=== PATIENT | female | born 1935 | race African-American/Black ===

== ENCOUNTER → 2019-01-12 | Outpatient (REF) | payer MEDICARE, MEDICAID ==
[~2019-01-12] MED LIST: AMLODIPINE PO; AMOXICILLIN250 M1 OR; AMOXICILLIN500 MG PO; ASPIRIN LOW DOS81 M2 PO; ASTEPRO137 MC1; BONIVA150 MG OR; CHERATUSSIN OR; CIPRO500 MG PO; CIPROFLOXACN500 MG PO; DEPO-MEDROL80 MG/ML IM; DIOVAN160 MG OR; DIOVAN160 MG PO; ENDOCET1 TA1 PO; FEXOFENADINE H180 MG OR; FEXOFENADINE180 MG PO; FLEXERIL5 M1 PO; FLORASTOR250 M1 PO; FLUZONE SPLT1 M1 IM; FOLIC ACID1 MG PO; HYDROCHLOROT25 MG PO; IMITREX100 MG PO; IRON CHEWS OR; ISOSORB MONO30 MG PO; LEVOTHYROXIN50 MCG PO; LISINOPRIL40 MG PO; LOPID600 MG PO; LOSARTAN POTAS100 MG PO; LYRICA25 MG PO; METAMUCIL28 % PO; OMEPRAZOLE20 M1 PO; OMEPRAZOLE20 MG PO; OMEPRAZOLE40 MG PO; PT DOES NOT KNOW; ROBITUSSIN AC10 ML PO; ROXICET1 TAB OR; TENORMIN50 MG PO; TRAVATAN Z0.004 % OP; TRAVATAN0.0041 OP; TRAVATAN0.0041 OU; TRICOR145 MG PO; VALS PO; ZPAK PO
[2019-01-12 13:27] LABS: HEMATOCRIT 28.7 % (37.0-47.0); HEMOGLOBIN 8.5 g/dl (12.0-16.0)
== END | disposition home or self-care (01) ==
LOC: LAB 12:58
PROVIDERS: ATTEND Internal Medicine
DX: D50.9 Iron deficiency anemia, unspecified (principal); N18.2 Chronic kidney disease, stage 2 (mild); D46.9 Myelodysplastic syndrome, unspecified

== ENCOUNTER → 2019-01-26 | Outpatient (REF) | payer MEDICARE, MEDICAID ==
[2019-01-26 13:20] VITALS: BP 131/78
== END | disposition home or self-care (01) ==
LOC: INF 12:28
PROVIDERS: ATTEND Internal Medicine
DX: D50.9 Iron deficiency anemia, unspecified (principal); D46.9 Myelodysplastic syndrome, unspecified; N18.2 Chronic kidney disease, stage 2 (mild)
CPT/HCPCS: J0885

== ENCOUNTER → 2019-02-12 | Outpatient (REF) | payer MEDICARE, MEDICAID ==
[2019-02-12 11:23] LABS: HEMATOCRIT 28.1 % (37.0-47.0); HEMOGLOBIN 8.3 g/dl (12.0-16.0)
== END | disposition home or self-care (01) ==
LOC: LAB 10:34
PROVIDERS: ATTEND Internal Medicine
DX: D50.9 Iron deficiency anemia, unspecified (principal); N18.2 Chronic kidney disease, stage 2 (mild); D46.9 Myelodysplastic syndrome, unspecified

== ENCOUNTER 2019-06-01 12:04 | Emergency (ER) | payer MEDICARE, MEDICAID ==
[2019-06-01] VITALS (7 sets, daily range): BP systolic 123–140; BP diastolic 59–69
[~2019-06-01] VITALS: Ht 154.9 cm; Wt 54.0 kg
[2019-06-01 12:59] LABS: IMMATURE GRANULOCYTES 4.3 % (0.0-5.0); MEAN CELL VOLUME 94.9 fL CALC (80.0-100.0); MEAN CORPUSCULAR HGB 27.3 pG CALC (26.0-32.0); MEAN CORPUSCULAR HGB CONC 28.7 g/L CALC (32.0-36.0); NEUT# 7.94 thou/uL (2.00-7.15); RED BLOOD COUNT 1.76 mill/uL (4.20-5.60)
[2019-06-01 13:07] LABS: HEMOGLOBIN 4.8 g/dl (12.0-16.0)
[2019-06-01 13:08] LABS: HEMATOCRIT 16.7 % (37.0-47.0)
[2019-06-01 13:15] LABS: INTERNATIONAL NORMALIZED RATIO 1.1 RATIO (0.7-1.3); PROTHROMBIN TIME 11.5 SECONDS (9.0-12.5)
[2019-06-01 13:28] LABS: ALBUMIN 3.9 g/dL (3.2-5.0); BILIRUBIN, TOTAL 0.2 mg/dL (0.0-1.4); CREATININE 1.4 mg/dL (0.5-1.0); POTASSIUM 3.7 mmol/l (3.5-5.1)
[2019-06-01] MEDS ORDERED: LEVOTHYROXIN75 MC1 PO (13:49)
[2019-06-01] MEDS ORDERED: TENORMIN PO (13:50)
[2019-06-01] MEDS ORDERED: TRAVATAN0.0041 OU (13:51)
[2019-06-01] MEDS ORDERED: EXFORGE PO (13:53)
[2019-06-01] MEDS ORDERED: PROTONIX40 M2 PO (13:54)
[2019-06-01] MEDS ORDERED: ALL DAY PAIN R220 MG PO (13:54)
== END 2019-06-01 16:26 | disposition short-term general hospital (02) ==
LOC: ED 12:04
PROVIDERS: Emergency Medicine
PROC: 30233N1 Transfusion of Nonautologous Red Blood Cells into Peripheral Vein, Percutaneous Approach (ICD-10-PCS; principal; 2019-06-01)
PROC: 30233N1 Transfusion of Nonautologous Red Blood Cells into Peripheral Vein, Percutaneous Approach (ICD-10-PCS; 2019-06-01)
DX: K92.2 Gastrointestinal hemorrhage, unspecified (principal); D50.0 Iron deficiency anemia secondary to blood loss (chronic); D46.9 Myelodysplastic syndrome, unspecified; I10 Essential (primary) hypertension; E03.9 Hypothyroidism, unspecified
CPT/HCPCS: P9016; S0164

== ENCOUNTER 2019-06-18 11:22 | Emergency (ER) | payer MEDICARE, MEDICAID ==
[~2019-06-18] VITALS: Ht 154.9 cm; Wt 55.9 kg
[~2019-06-18 11:22] MED LIST changes: +ALL DAY PAIN R220 MG PO; +EXFORGE PO; +LEVOTHYROXIN75 MC1 PO; +PROTONIX40 M2 PO; +TENORMIN PO
[2019-06-18 12:22] LABS: MEAN CELL VOLUME 91.9 fL CALC (80.0-100.0); MEAN CORPUSCULAR HGB 28.5 pG CALC (26.0-32.0); NEUT# 4.22 thou/uL (2.00-7.15); RED BLOOD COUNT 2.84 mill/uL (4.20-5.60); RED CELL DISTRI WIDTH 16.9 % (11.5-15.5)
[2019-06-18 12:24] LABS: HEMATOCRIT 26.1 % (37.0-47.0); HEMOGLOBIN 8.1 g/dl (12.0-16.0)
[2019-06-18 12:59] LABS: ALBUMIN 3.9 g/dL (3.2-5.0); ALKALINE PHOSPHATASE 70 u/l (38-126); ANION GAP 16 (6-22 (CALC)); BILIRUBIN, TOTAL 0.3 mg/dL (0.0-1.4); BUN 10 mg/dL (8-23); BUN/CREATININE RATIO 9 (12-20 (CALC)); C-REACTIVE PROTEIN 1.3 mg/dL (0-0.9); CARBON DIOXIDE 23 mmol/l (22-30); CHLORIDE 105 mmol/l (95-108); GFR 53 ML/MIN (>=60 (CALC)); GFR FOR AFR.AMER. > 60 ML/MIN (>=60 (CALC)); SGOT/AST 20 u/l (9-36); SODIUM 140 mmol/l (137-146); TOTAL PROTEIN 7.2 g/dL (6.3-8.2)
[2019-06-18 13:27] LABS: TSH, 3RD GENERATION 2.42 uIU/mL (0.47 - 4.68)
[2019-06-18] MEDS ORDERED: PERCOGESI1 PO (14:12)
[2019-06-18 14:25] VITALS: BP 141/63
== END 2019-06-18 14:29 | disposition home or self-care (01) ==
LOC: ED 11:22
PROVIDERS: Emergency Medicine
DX: R51 Headache (principal); I10 Essential (primary) hypertension; E03.9 Hypothyroidism, unspecified

== ENCOUNTER 2019-06-24 23:25 | Emergency (ER) | payer MEDICARE, MEDICAID ==
[~2019-06-24] VITALS: Ht 154.9 cm; Wt 54.5 kg
[~2019-06-24 23:25] MED LIST changes: +PERCOGESI1 PO
[2019-06-24 23:53] LABS: HEMATOCRIT 25.6 % (37.0-47.0); HEMOGLOBIN 8.1 g/dl (12.0-16.0); IMMATURE GRANULOCYTES 0.7 % (0.0-5.0); MEAN CELL VOLUME 89.8 fL CALC (80.0-100.0); MEAN CORPUSCULAR HGB 28.4 pG CALC (26.0-32.0); MEAN CORPUSCULAR HGB CONC 31.6 g/L CALC (32.0-36.0); NEUT# 3.18 thou/uL (2.00-7.15); RED BLOOD COUNT 2.85 mill/uL (4.20-5.60); RED CELL DISTRI WIDTH 16.3 % (11.5-15.5)
[2019-06-25 00:20] LABS: ALBUMIN 3.9 g/dL (3.2-5.0); ALKALINE PHOSPHATASE 72 u/l (38-126); BILIRUBIN, TOTAL 0.3 mg/dL (0.0-1.4); BUN 13 mg/dL (8-23); BUN/CREATININE RATIO 13 (12-20 (CALC)); CARBON DIOXIDE 24 mmol/l (22-30); GFR 53 ML/MIN (>=60 (CALC)); GFR FOR AFR.AMER. > 60 ML/MIN (>=60 (CALC)); SGOT/AST 23 u/l (9-36); TOTAL PROTEIN 7.4 g/dL (6.3-8.2)
[2019-06-25 00:21] LABS: ANION GAP 18 (6-22 (CALC)); CHLORIDE 91 mmol/l (95-108); SODIUM 130 mmol/l (137-146)
[2019-06-25 01:43] VITALS: BP 154/67
== END 2019-06-25 01:43 | disposition home or self-care (01) ==
LOC: ED 23:25
PROVIDERS: Emergency Medicine
DX: R51 Headache (principal); D64.9 Anemia, unspecified; I10 Essential (primary) hypertension; E03.9 Hypothyroidism, unspecified

== ENCOUNTER 2019-07-16 08:21 | Emergency (ER) | payer MEDICARE, MEDICAID ==
[~2019-07-16] VITALS: Ht 154.9 cm; Wt 50.0 kg
[2019-07-16 09:17] LABS: HEMATOCRIT 26.5 % (37.0-47.0); HEMOGLOBIN 8.2 g/dl (12.0-16.0); IMMATURE GRANULOCYTES 1.1 % (0.0-5.0); MEAN CELL VOLUME 89.8 fL CALC (80.0-100.0); MEAN CORPUSCULAR HGB 27.8 pG CALC (26.0-32.0); MEAN CORPUSCULAR HGB CONC 30.9 g/L CALC (32.0-36.0); NEUT# 4.42 thou/uL (2.00-7.15); RED BLOOD COUNT 2.95 mill/uL (4.20-5.60); RED CELL DISTRI WIDTH 16.9 % (11.5-15.5)
[2019-07-16] MEDS ORDERED: ATENOLOL25 MG PO (09:37)
[2019-07-16] MEDS ORDERED: DOCU SOFT100 MG PO (09:38)
[2019-07-16] MEDS ORDERED: FERR SULFATE325 MG PO (09:38)
[2019-07-16] MEDS ORDERED: DIOVAN160 MG PO (09:47)
[2019-07-16 10:02] LABS: ALKALINE PHOSPHATASE 66 u/l (38-126); BILIRUBIN, TOTAL 0.4 mg/dL (0.0-1.4); BUN 13 mg/dL (8-23); BUN/CREATININE RATIO 15 (12-20 (CALC)); CARBON DIOXIDE 24 mmol/l (22-30); CHLORIDE 101 mmol/l (95-108); CREATININE 0.9 mg/dL (0.5-1.0); GFR 59 ML/MIN (>=60 (CALC)); GFR FOR AFR.AMER. > 60 ML/MIN (>=60 (CALC)); SGOT/AST 18 u/l (9-36); TOTAL PROTEIN 7.6 g/dL (6.3-8.2)
[2019-07-16 10:03] LABS: ANION GAP 16 (6-22 (CALC)); POTASSIUM 3.9 mmol/l (3.5-5.1); SODIUM 137 mmol/l (137-146)
[2019-07-16] MEDS ORDERED: ULTRAM50 M1 PO (10:03)
[2019-07-16 10:48] VITALS: BP 165/73
== END 2019-07-16 11:24 | disposition home or self-care (01) ==
LOC: ED 08:21
PROVIDERS: Emergency Medicine
DX: R51 Headache (principal); M25.562 Pain in left knee; M25.561 Pain in right knee; G89.29 Other chronic pain; I10 Essential (primary) hypertension; E03.9 Hypothyroidism, unspecified; D46.9 Myelodysplastic syndrome, unspecified

== ENCOUNTER 2019-07-17 23:14 | Emergency (ER) | payer MEDICARE, MEDICAID ==
[~2019-07-17] VITALS: Ht 154.9 cm; Wt 21.8 kg
[~2019-07-17 23:14] MED LIST changes: +ATENOLOL25 MG PO; +DOCU SOFT100 MG PO; +FERR SULFATE325 MG PO; +ULTRAM50 M1 PO
[2019-07-18 00:14] LABS: HEMOGLOBIN 7.6 g/dl (12.0-16.0); IMMATURE GRANULOCYTES 0.9 % (0.0-5.0); MEAN CELL VOLUME 87.6 fL CALC (80.0-100.0); MEAN CORPUSCULAR HGB 27.7 pG CALC (26.0-32.0); MEAN CORPUSCULAR HGB CONC 31.7 g/L CALC (32.0-36.0); NEUT# 5.62 thou/uL (2.00-7.15); RED BLOOD COUNT 2.74 mill/uL (4.20-5.60); RED CELL DISTRI WIDTH 17.1 % (11.5-15.5)
[2019-07-18 00:39] LABS: BILIRUBIN, TOTAL 0.3 mg/dL (0.0-1.4); CREATININE 1.2 mg/dL (0.5-1.0); POTASSIUM 3.5 mmol/l (3.5-5.1); TOTAL PROTEIN 7.8 g/dL (6.3-8.2)
[2019-07-18] MEDS ORDERED: CEPHALEXIN500 M1 PO (02:24)
[2019-07-18 03:36] VITALS: BP 178/71
== END 2019-07-18 03:36 | disposition home or self-care (01) ==
LOC: ED 23:14
PROVIDERS: Emergency Medicine
DX: J06.9 Acute upper respiratory infection, unspecified (principal); F41.9 Anxiety disorder, unspecified; I10 Essential (primary) hypertension; E03.9 Hypothyroidism, unspecified; D46.9 Myelodysplastic syndrome, unspecified; R06.02 Shortness of breath; R22.0 Localized swelling, mass and lump, head

== ENCOUNTER 2019-07-29 10:56 | Emergency (ER) | payer MEDICARE, MEDICAID ==
[~2019-07-29] VITALS: Ht 154.9 cm; Wt 60.0 kg
[~2019-07-29 10:56] MED LIST changes: +CEPHALEXIN500 M1 PO
[2019-07-29 13:25] VITALS: BP 145/81
[2019-07-30] MEDS ORDERED: CARBAMAZEPIN200 M1 PO (11:38)
[2019-07-30] MEDS ORDERED: TRAMADOL HCL50 MG PO (11:38)
[2019-07-30] MEDS ORDERED: AMLODIPINE BESY10 MG PO (11:40)
[2019-07-30] MEDS ORDERED: ATENOLOL50 MG PO (11:41)
[2019-07-30] MEDS ORDERED: LOPID600 MG PO (11:41)
[2019-07-30] MEDS ORDERED: DIOVAN HCT160 MG/25 PO (11:42)
[2019-07-30] MEDS ORDERED: FIORICET PO (11:54)
== END 2019-07-29 13:25 | disposition home or self-care (01) ==
LOC: ED 10:56
DX: R51 Headache (principal); I10 Essential (primary) hypertension; E03.9 Hypothyroidism, unspecified; D46.9 Myelodysplastic syndrome, unspecified

== ENCOUNTER 2019-07-30 10:43 | Emergency (ER) | payer MEDICARE, MEDICAID ==
[~2019-07-30] VITALS: Ht 154.9 cm; Wt 65.0 kg
[2019-07-30] MEDS ORDERED: TRAMADOL HCL50 MG PO (11:38)
[2019-07-30] MEDS ORDERED: CARBAMAZEPIN200 M1 PO (11:38)
[2019-07-30] MEDS ORDERED: AMLODIPINE BESY10 MG PO (11:40)
[2019-07-30] MEDS ORDERED: LOPID600 MG PO (11:41)
[2019-07-30] MEDS ORDERED: ATENOLOL50 MG PO (11:41)
[2019-07-30] MEDS ORDERED: DIOVAN HCT160 MG/25 PO (11:42)
[2019-07-30] MEDS ORDERED: FIORICET PO (11:54)
[2019-07-30 11:59] VITALS: BP 124/73
[2019-07-31] MEDS ORDERED: AUGMENTIN500TAB PO (05:35)
[2019-07-31] MEDS ORDERED: ZOFRAN4 MG/TAB PO (05:35)
== END 2019-07-30 11:59 | disposition home or self-care (01) ==
LOC: ED 10:43
DX: G89.29 Other chronic pain (principal); R51 Headache

== ENCOUNTER 2019-07-31 04:55 | Emergency (ER) | payer MEDICARE, MEDICAID ==
[~2019-07-31] VITALS: Ht 154.9 cm; Wt 55.0 kg
[~2019-07-31 04:55] MED LIST changes: +AMLODIPINE BESY10 MG PO; +ATENOLOL50 MG PO; +CARBAMAZEPIN200 M1 PO; +DIOVAN HCT160 MG/25 PO; +FIORICET PO; +TRAMADOL HCL50 MG PO
[2019-07-31] MEDS ORDERED: ZOFRAN4 MG/TAB PO (05:35)
[2019-07-31] MEDS ORDERED: AUGMENTIN500TAB PO (05:35)
[2019-07-31 06:00] VITALS: BP 148/83
== END 2019-07-31 06:15 | disposition home or self-care (01) ==
LOC: ED 04:55
DX: R51 Headache (principal); J32.9 Chronic sinusitis, unspecified; I10 Essential (primary) hypertension; D46.9 Myelodysplastic syndrome, unspecified; E03.9 Hypothyroidism, unspecified

== ENCOUNTER 2019-09-08 09:52 | Observation (INO) | payer MEDICARE, MEDICAID ==
[2019-09-08] VITALS (8 sets, daily range): BP systolic 125–153; BP diastolic 59–82
[~2019-09-08] VITALS: Ht 154.9 cm; Wt 55.2 kg
[~2019-09-08 09:52] MED LIST changes: +AUGMENTIN500TAB PO; +ZOFRAN4 MG/TAB PO
--- NOTE | 2019-09-08 09:58 | NUR ---
PT TO ROOM VIA WC IN NO DISTRESS
--- NOTE | 2019-09-08 10:30 | NUR ---
PT HERE FOR BLOOD TRANSFUSION PRESCRIBED BY . PT PRESENTS WITH WEAKNESS, AND DIZZYNESS. FALL PRECAUSIONS INTITIATED.
--- NOTE | 2019-09-08 10:40 | NUR ---
IV STARTED AND LABS DRAWN TO START BBK PROSSESS.
[2019-09-08 11:01] LABS: HEMATOCRIT 24.5 % (37.0-47.0); HEMOGLOBIN 7.6 g/dl (12.0-16.0); IMMATURE GRANULOCYTES 1.4 % (0.0-5.0); MEAN CELL VOLUME 94.2 fL CALC (80.0-100.0); MEAN CORPUSCULAR HGB 29.2 pG CALC (26.0-32.0); NEUT# 1.87 thou/uL (2.00-7.15); RED BLOOD COUNT 2.6 mill/uL (4.20-5.60); RED CELL DISTRI WIDTH 18.3 % (11.5-15.5)
--- NOTE | 2019-09-08 11:19 | NUR ---
PT RESTING ON BED WITH FAMILY AT BEDSIDE. PT ADVISED OF PLAN OF CARE AND WAIT TIME. CALL LIGHT WITHIN REACH. WILL CONTINUE TO MONITOR.
--- NOTE | 2019-09-08 11:23 | NUR ---
URINE REQUESTED, PT STATED NOT BEING ABLE TO PROVIDE. PT MADE AWARE OF REQUEST, WILL MONITOR.
--- NOTE | 2019-09-08 11:44 | NUR ---
PT AOX4 RESTING ON STRETCHER. ASKED FOR IF URINE CAN BE COLLECTED, PT SAYS SHE WILL TRY. LEONIE IS RETRIVED AND ASSISTED PT WITH AMBULATING AND COLLECTING URINE.
[2019-09-08 12:15] LABS: ALBUMIN 3.7 g/dL (3.2-5.0); ALKALINE PHOSPHATASE 68 u/l (38-126); ANION GAP 15 (6-22 (CALC)); BILIRUBIN, TOTAL 0.6 mg/dL (0.0-1.4); BUN 19 mg/dL (8-23); BUN/CREATININE RATIO 18 (12-20 (CALC)); CARBON DIOXIDE 22 mmol/l (22-30); CHLORIDE 105 mmol/l (95-108); GFR 53 ML/MIN (>=60 (CALC)); GFR FOR AFR.AMER. > 60 ML/MIN (>=60 (CALC)); SGOT/AST 51 u/l (9-36); SODIUM 138 mmol/l (137-146); TOTAL PROTEIN 7.2 g/dL (6.3-8.2)
--- NOTE | 2019-09-08 12:29 | NUR ---
PT RESTING ON STRETCHER WAITING ADMISSION
[2019-09-08 12:31] LABS: URINE BILIRUBIN - DIPSTICK NEGATIVE (NEGATIVE); URINE BLOOD DIPSTICK NEGATIVE (NEGATIVE); URINE COLOR YELLOW; URINE GLUCOSE - DIPSTICK NEGATIVE (NEGATIVE); URINE KETONE NEGATIVE (NEGATIVE); URINE LEUK ESTERASE NEGATIVE (NEGATIVE); URINE NITRITE - DIPSTICK NEGATIVE (Negative); URINE PH 5.5 (4.5-8.0); URINE PROTEIN - DIPSTICK NEGATIVE (NEG-TRACE); URINE SPECIFIC GRAVITY 1.015
--- NOTE | 2019-09-08 12:39 | NUR ---
GAVE REPORT TO MED SURG ANGELICA. PT WILL BE IN ROOM 290. TELE [id number]
--- NOTE | 2019-09-08 13:02 | NUR ---
PT TRANSPORTED BY STRETCHER TO [facility]
--- NOTE | 2019-09-08 13:09 | NUR ---
CARE ASSUMED BY
--- NOTE | 2019-09-08 14:12 | NUR ---
REPORT RECEIVED FROM VIDHYA IN ED, PT ARRIVED ON UNIT VIA STRETCHER @ 1303, AMBULATED WITH ASSISTANCE TO BED, ALERT AND ORIENED X 3, NO C/O DISCOMFORT AT THIS TIME, IV CATHETER IN PLACE TO RAC, TELE MONITOR IN PLACE ORIENTED, TO ROOM AND CALL LACEY, WILL CONTINUE TO MONITOR.
--- NOTE | 2019-09-08 19:30 | NUR ---
PATIENT RESTING IN BED AT THIS TIME-AWAKE ALERT AND ORIENTEDX3. NO COMPLAINTS AT THIS TIME. TELE MONITOR IN PLACE. SALINE LOCK TO RIGHT AC INTACTR AND APPEARS HEALTHY AT THIS TIME. SAFETY PRECAUTIONS REINFORCED. CALL LIGHT IN REACH. WILL CONT TO MONITOR.
[2019-09-09] VITALS (9 sets, daily range): BP systolic 112–159; BP diastolic 66–91
--- NOTE | 2019-09-09 00:14 | NUR ---
PATIENT CALLED FOR ASSIST TO BR TO VOID. ORTHOSTATIC VS DONE ORDERED AND CHARTED. PATIENT IS ASSIST TO THE BR-UNSTEADY ON HER FEET. VOIDED 600CC OF CAROL URINE. ASSISTED BACK TO THE BED. TELE MONITOR IN PLACE. SALINE LOCK TO RAC INTACT AND APPEARS HEALTHY AT THIS TIME. SAFETY PRECAUTIONS REINFORCED. CALL LIGHT IN REACH. WILL CONT TO MONITOR.
--- NOTE | 2019-09-09 01:41 | NUR ---
PATIENT CALLED AND C/O FEELING SOB. VS TAKEN AND RECORDED. O2 SAT IS 97%-O2 VIA NASAL CANNULA PLACED FOR COMFORT. PATIENT ASSISTED WITH REPOSITIONING AND HOB ELEVATED. STATES THAT IT FEELS SOME BETTER. TELE MONITOR IN PLACE-[id number]. CALL LIGHT IN REACH. WILL CONT TO MONITOR.
--- NOTE | 2019-09-09 04:15 | NUR ---
RESTING IN BED-APPEARS SLEEPING AT THIS TIME. RESP ARE EVEN AND UNLABORED. TELE MONITOR IN PLACE. CALL LIGHT IN REACH. WILL CONT TO MONITOR.
[2019-09-09 05:21] LABS: HEMATOCRIT 27.5 % (37.0-47.0); HEMOGLOBIN 8.7 g/dl (12.0-16.0); IMMATURE GRANULOCYTES 0.8 % (0.0-5.0); MEAN CELL VOLUME 90.2 fL CALC (80.0-100.0); MEAN CORPUSCULAR HGB 28.5 pG CALC (26.0-32.0); MEAN CORPUSCULAR HGB CONC 31.6 g/L CALC (32.0-36.0); NEUT# 2.47 thou/uL (2.00-7.15); RED BLOOD COUNT 3.05 mill/uL (4.20-5.60); RED CELL DISTRI WIDTH 18.9 % (11.5-15.5)
--- NOTE | 2019-09-09 06:06 | NUR ---
PATIENT RESTING IN BED-ORTHOSTATIC VS TAKEN AND RECORDED. PATIENT ASSISTED TO BR TO VOID. NO COMPLAINTS AT THIS TIME. CALL LIGHT IN REACH. WILL CONT TO MONITOR.
--- NOTE | 2019-09-09 08:10 | NUR ---
ASSESSMENT DONE. PT IS A&O X3. PT STATED PAIN HEAD AND KNEE MEDICATED PT WITH ULTRAM SEE EMAR. RESPS EVEN AND UNLABORED. TELE IN PLACE. PT DENIES ANY OTHER NEEDS AT THIS TIME. SAFETY PRECAUTIONS REINFORCED AND CALL LIGHT IN REACH.
--- NOTE | 2019-09-09 11:29 | NUR ---
PT IS SITTING IN CHAIR WITH NO S/S OF DISTRESS NOTED. PT DENIES NEEDS AT THIS TIME. CALL LIGHT IN REACH.
--- NOTE | 2019-09-09 15:33 | NUR ---
Discharge instructions given. Patient verbalizes understanding of same. Discharged in stable condition via Wheelchair to Home with staff. All belongings sent with pt.
[2019-09-09] MEDS ORDERED: MAG OXIDE400 MG PO (21:45)
== END 2019-09-09 15:53 | disposition home or self-care (01) ==
LOC: ED 09:52 → ED-I 11:10 → ED 11:26 → MS2 11:27
PROVIDERS: Nurse Practitioner Family; ADMIT Internal Medicine; ATTEND Internal Medicine
PROC: 30233N1 Transfusion of Nonautologous Red Blood Cells into Peripheral Vein, Percutaneous Approach (ICD-10-PCS; principal; 2019-09-08)
DX: D61.818 Other pancytopenia (principal); D46.9 Myelodysplastic syndrome, unspecified; I10 Essential (primary) hypertension; E78.5 Hyperlipidemia, unspecified; I25.10 Atherosclerotic heart disease of native coronary artery without angina pectoris; H40.9 Unspecified glaucoma; E03.9 Hypothyroidism, unspecified; R51 Headache; Z87.891 Personal history of nicotine dependence
CPT/HCPCS: P9016

== ENCOUNTER 2019-09-09 18:11 | Emergency (ER) | payer MEDICARE, MEDICAID ==
[~2019-09-09] VITALS: Ht 154.9 cm; Wt 54.5 kg
[2019-09-09 19:32] LABS: ALBUMIN 4.3 g/dL (3.2-5.0); ALKALINE PHOSPHATASE 85 u/l (38-126); BILIRUBIN, TOTAL 0.8 mg/dL (0.0-1.4); BUN 15 mg/dL (8-23); BUN/CREATININE RATIO 16 (12-20 (CALC)); CARBON DIOXIDE 20 mmol/l (22-30); CHLORIDE 97 mmol/l (95-108); GFR 53 ML/MIN (>=60 (CALC)); GFR FOR AFR.AMER. > 60 ML/MIN (>=60 (CALC)); HEMATOCRIT 28.4 % (37.0-47.0); HEMOGLOBIN 9.3 g/dl (12.0-16.0); IMMATURE GRANULOCYTES 0.7 % (0.0-5.0); MEAN CORPUSCULAR HGB 29.2 pG CALC (26.0-32.0); MEAN CORPUSCULAR HGB CONC 32.7 g/L CALC (32.0-36.0); NEUT# 4.76 thou/uL (2.00-7.15); POTASSIUM 4.2 mmol/l (3.5-5.1); RED BLOOD COUNT 3.19 mill/uL (4.20-5.60); SGOT/AST 35 u/l (9-36)
[2019-09-09 19:40] LABS: ANION GAP 17 (6-22 (CALC)); SODIUM 130 mmol/l (137-146)
[2019-09-09 19:44] LABS: MYOGLOBIN 38 ng/mL (0 - 62)
[2019-09-09 20:03] LABS: TSH, 3RD GENERATION 2.42 uIU/mL (0.47 - 4.68)
[2019-09-09 21:18] LABS: URINE BILIRUBIN - DIPSTICK NEGATIVE (NEGATIVE); URINE BLOOD DIPSTICK TRACE-INTACT (NEGATIVE); URINE COLOR YELLOW; URINE GLUCOSE - DIPSTICK NEGATIVE (NEGATIVE); URINE KETONE NEGATIVE (NEGATIVE); URINE LEUK ESTERASE NEGATIVE (NEGATIVE); URINE NITRITE - DIPSTICK NEGATIVE (Negative); URINE PROTEIN - DIPSTICK TRACE mg/dL (NEG-TRACE); URINE SPECIFIC GRAVITY 1.015
[2019-09-09] MEDS ORDERED: MAG OXIDE400 MG PO (21:45)
[2019-09-09 23:30] VITALS: BP 146/89
== END 2019-09-09 22:30 | disposition home or self-care (01) ==
LOC: ED 18:11
PROVIDERS: Family Medicine
DX: E83.42 Hypomagnesemia (principal); I10 Essential (primary) hypertension; D46.9 Myelodysplastic syndrome, unspecified

== ENCOUNTER 2019-11-25 20:28 | Observation (INO) | payer MEDICARE, MEDICAID ==
[~2019-11-25] VITALS: Ht 154.9 cm; Wt 45.4 kg
[~2019-11-25 20:28] MED LIST changes: +CLARITIN10 M1 PO; +LEVOTHYROXIN100 MC1 PO; -LEVOTHYROXIN75 MC1 PO; +MAG OXIDE400 MG PO
--- NOTE | 2019-11-25 20:49 | NUR ---
PT TO ROOM VIA WC.
[2019-11-25 21:35] LABS: IMMATURE GRANULOCYTES 0.2 % (0.0-5.0); MEAN CELL VOLUME 86.6 fL CALC (80.0-100.0); MEAN CORPUSCULAR HGB 27.2 pG CALC (26.0-32.0); MEAN CORPUSCULAR HGB CONC 31.3 g/L CALC (32.0-36.0); NEUT# 1.18 thou/uL (2.00-7.15); RED BLOOD COUNT 2.32 mill/uL (4.20-5.60); RED CELL DISTRI WIDTH 18.7 % (11.5-15.5)
[2019-11-25 21:36] LABS: URINE BILIRUBIN - DIPSTICK NEGATIVE (NEGATIVE); URINE BLOOD DIPSTICK NEGATIVE (NEGATIVE); URINE COLOR YELLOW; URINE GLUCOSE - DIPSTICK NEGATIVE (NEGATIVE); URINE KETONE NEGATIVE (NEGATIVE); URINE LEUK ESTERASE TRACE (NEGATIVE); URINE NITRITE - DIPSTICK NEGATIVE (Negative); URINE PH 5.5 (4.5-8.0); URINE PROTEIN - DIPSTICK NEGATIVE (NEG-TRACE); URINE SPECIFIC GRAVITY 1.025; URINE UROBILINOGEN - DIPSTICK 0.2 E.U./dL (0.2)
[2019-11-25 21:39] LABS: HEMATOCRIT 20.1 % (37.0-47.0); HEMOGLOBIN 6.3 g/dl (12.0-16.0)
[2019-11-25 21:49] LABS: ALBUMIN 4.3 g/dL (3.2-5.0); BILIRUBIN, TOTAL 0.3 mg/dL (0.0-1.4); CREATININE 2.7 mg/dL (0.5-1.0); POTASSIUM 5.6 mmol/l (3.5-5.1); TOTAL PROTEIN 8.8 g/dL (6.3-8.2)
[2019-11-26] VITALS (10 sets, daily range): BP systolic 94–145; BP diastolic 48–72
--- NOTE | 2019-11-26 | NUR ---
NEW ADMIT PATIENT A/O, NO C/O OF PAIN, NO S/S RESP DISTRESS, PATIENT SKIN WARM AND MOIST, WILL CONTINUE TO MONITOR PATIENT HOURLY ROUNDING
--- NOTE | 2019-11-26 01:37 | NUR ---
PATIENT A/O NO C/O PAIN, NO S/S RESP DISTRESS, PATIENT HGB 6.3 MD ORDERED TWO UNITS OF PRBC, PATIENT FIRST BLOOD TRANSFUSION START AT 0137, WILL MONITOR PATIENT AT BEDSIDE FOR ANY REACTION TO BLOOD TRANSFUSION, CALL LIGHT WITHIN REACH
--- NOTE | 2019-11-26 01:52 | NUR ---
PATIENT A/O , NO C/O PAIN, NO S/S RESP DISTRESS, PATIENT NO APPARENT REACTION TO BLOOD TRANSFUSION, WILL CONTINUE TO MONITOR PATIENT
--- NOTE | 2019-11-26 03:35 | NUR ---
PATIENT A/O, NO C/O PAIN, NO S/S RESP DISTRESS, PATIENT SKIN WARM AND MOIST PATIENT NO FEVER, CHECK PATIENT BLOOD GLUCOSE , PATIENT GLUCOSE LEVEL 52, ORAL GLUCOSE WAS GIVEN, PATIENT BLOOD GLUCOSE RECHECK BLOOD GLUCOSE 66, NOTIFIED DR. NI ABOUT PATIENT CONITION MD ORDER BOLUS OF DEXTROSE, BLOOD GLUCOSE WAS DRAWN BY LAB PATIENT BLOOD GLUCOSE 154 APROX: [id number], WILL CONTINUE TO MONITOR
--- NOTE | 2019-11-26 04:20 | NUR ---
PATIENT FIRST UNIT OF PRBC TRANFUSION COMPLETED , PATIENT NO S/S BLOOD TRANFUSION REACTION, PATIENT HAS NO C/O PAIN, NO S/S RESP DISTRESS
--- NOTE | 2019-11-26 05:10 | NUR ---
PATIENT CURRENTLY 15 MIN IN BLOOD TRANSFUSION, PATIENT NO C/O PAIN, NO S/S RESP DISTRESS
--- NOTE | 2019-11-26 07:34 | NUR ---
PATIENT A/O, NO S/S RESP DISTRESS, NO C/O PAIN, PATIENT TRANSFUSION COMPLETED NO S/S REACTION
[2019-11-26 09:24] LABS: IMMATURE GRANULOCYTES 0.5 % (0.0-5.0); MEAN CELL VOLUME 84.5 fL CALC (80.0-100.0); MEAN CORPUSCULAR HGB 27.6 pG CALC (26.0-32.0); MEAN CORPUSCULAR HGB CONC 32.7 g/L CALC (32.0-36.0); NEUT# 1.77 thou/uL (2.00-7.15); RED BLOOD COUNT 3.62 mill/uL (4.20-5.60); RED CELL DISTRI WIDTH 16.4 % (11.5-15.5)
[2019-11-26 09:35] LABS: HEMATOCRIT 30.6 % (37.0-47.0); HEMOGLOBIN 10.1 g/dl (12.0-16.0)
[2019-11-26 09:38] LABS: ALBUMIN 4.3 g/dL (3.2-5.0); BILIRUBIN, TOTAL 0.8 mg/dL (0.0-1.4); CREATININE 2.2 mg/dL (0.5-1.0); POTASSIUM 4.9 mmol/l (3.5-5.1); TOTAL PROTEIN 8.7 g/dL (6.3-8.2)
--- NOTE | 2019-11-26 11:24 | NUR ---
DR. FREDERICK AND ELIAN MEEHAN IN TO SEE PT; PLAN OF CARE DISCUSSED
--- NOTE | 2019-11-26 14:00 | NUR ---
PT MEDICATED ORDERED FOR C/O MANLEY; CALL LACEY WITHIN REACH; WILL CONTINUE TO MONITOR.
[2019-11-26] MEDS ORDERED: FUROSEMIDE20 MG PO (14:03)
[2019-11-26] MEDS ORDERED: DIOVAN HCT PO (14:06)
--- NOTE | 2019-11-26 17:00 | NUR ---
PT TALKING ON THE PHONE; MEDICATED ORDERED FOR C/O MANLEY; CALL LACEY WITHIN REACH; WILL CONTINUE TO MONITOR.
--- NOTE | 2019-11-26 20:10 | NUR ---
PATIENT A/O, NO S/S RESP DISTRESS, NO C/O PAIN, WILL CONTINUE TO MONITOR PATIENT HOURLY ROUNDING, CALL LIGHT WITH REACH
[2019-11-27] VITALS (7 sets, daily range): BP systolic 97–151; BP diastolic 54–78
--- NOTE | 2019-11-27 00:30 | NUR ---
PATIENT A/O, NO C/O OF PAIN, NO S/S RESP DISTRESS, PATIENT ON ROOM AIR, SUPERVISED PATIENT WHILE PATIENT AMBULATE TO RESTROOM WITH WALKER, PATIENT VOIDED, PATIENT RETURN TO BED PUT CALL LIGHT WITHIN REACH, WILL CONTINUE TO MONITOR PATIENT HOURLY ROUNDING
--- NOTE | 2019-11-27 04:39 | NUR ---
PATIENT RESTING NO C/O PAIN, NO S/S RESP DISTRESS, WILL CONTINUE TO MONITOR PATIENT HOURLY ROUNING, CALL LIGHT WITHIN REACH
[2019-11-27 05:32] LABS: HEMATOCRIT 28.1 % (37.0-47.0); HEMOGLOBIN 9.1 g/dl (12.0-16.0); MEAN CELL VOLUME 85.9 fL CALC (80.0-100.0); MEAN CORPUSCULAR HGB 27.8 pG CALC (26.0-32.0); MEAN CORPUSCULAR HGB CONC 32.4 g/L CALC (32.0-36.0); RED BLOOD COUNT 3.27 mill/uL (4.20-5.60); RED CELL DISTRI WIDTH 17.4 % (11.5-15.5)
[2019-11-27 05:46] LABS: ALBUMIN 3.7 g/dL (3.2-5.0); BILIRUBIN, TOTAL 0.6 mg/dL (0.0-1.4); CREATININE 1.7 mg/dL (0.5-1.0); POTASSIUM 4.9 mmol/l (3.5-5.1); TOTAL PROTEIN 7.6 g/dL (6.3-8.2)
[2019-11-27 05:48] LABS: MAGNESIUM 1.6 mg/dL (1.6-2.3)
--- NOTE | 2019-11-27 08:00 | NUR ---
PT SEEN RESTING IN THE BED WITH FAMILY AT BEDSIDE. SHE IS ALERT AND ORIENTED X 3, LUNGS CLEAR, RA. BM TODAY. NO COMPLAINT OF HEADACHE OR OTHERWISE.
--- NOTE | 2019-11-27 14:00 | NUR ---
PT REMAINS BEFORE, NO CHANGE TO REPORT. VISITORS AT BEDSIDE INTERMITTENTLY.
--- NOTE | 2019-11-27 16:00 | NUR ---
PT WITHOUT COMPLAINT SHE RESTS IN THE BED, FAMILY AT BEDSIDE.
--- NOTE | 2019-11-27 19:54 | NUR ---
ASSESSMENT COMPLETED. IV SITES PATENT X2 AND ORDERED IVF INFUSING WELL. PT. C/O MANLEY AND MEDICATED WITH ORDERED PRN ULTRAM, WILL REASSESS. RIGHT EYE APPEARS SLIGHTLY IRRITATED PT. IS GOING TO ADMINISTER HER OWN EYE GTTS AT THIS TIME ENCOURAGED TO CALL FOR ANY NEEDS. CALL LIGHT IS IN REACH. WILL CONTINUE TO MONITOR.
--- NOTE | 2019-11-27 21:30 | NUR ---
PT. RESTING IN BED WITH NO DISTRESS NOTED.DENIES NEEDS. CALL LIGHT IS IN REACH. WILL CONTINUE TO MONITOR.
--- NOTE | 2019-11-27 23:17 | NUR ---
VSS. NO DISTRESS NOTED; DENIES NEEDS/PAIN. ANNMARIE HOSE APPLIED TO BLE. VOICES NO CONCERNS. CALL LIGHT IS IN REACH.
[2019-11-28 03:25] VITALS: BP 123/61
--- NOTE | 2019-11-28 03:25 | NUR ---
PT. RESTING IN BED WITH NO DISTRESS NOTED; DENIES NEEDS/PAIN AND VOICES NO CONCERNS. VSS. ENCOURAGED TO CALL FOR ANY NEEDS. CALL LIGHT IS IN REACH.
--- NOTE | 2019-11-28 05:08 | NUR ---
PT. RESTING IN BED WITH NO DISTRESS NOTED; DENIES NEEDS AND VOICES NO CONCERNS. CALL LIGHT IS IN REACH.
[2019-11-28 05:47] LABS: HEMATOCRIT 26.1 % (37.0-47.0); HEMOGLOBIN 8.3 g/dl (12.0-16.0); IMMATURE GRANULOCYTES 0.4 % (0.0-5.0); MEAN CELL VOLUME 87.3 fL CALC (80.0-100.0); MEAN CORPUSCULAR HGB 27.8 pG CALC (26.0-32.0); MEAN CORPUSCULAR HGB CONC 31.8 g/L CALC (32.0-36.0); NEUT# 1.43 thou/uL (2.00-7.15); RED BLOOD COUNT 2.99 mill/uL (4.20-5.60); RED CELL DISTRI WIDTH 17.2 % (11.5-15.5)
[2019-11-28 06:09] LABS: ANION GAP 14 (6-22 (CALC)); BUN 27 mg/dL (8-23); BUN/CREATININE RATIO 26 (12-20 (CALC)); CARBON DIOXIDE 19 mmol/l (22-30); CHLORIDE 106 mmol/l (95-108); GFR 53 ML/MIN (>=60 (CALC)); GFR FOR AFR.AMER. > 60 ML/MIN (>=60 (CALC)); POTASSIUM 4.8 mmol/l (3.5-5.1); SODIUM 134 mmol/l (137-146)
[2019-11-28 08:00] VITALS: BP 118/65
--- NOTE | 2019-11-28 08:00 | NUR ---
PT IS AWAKE, ALERT, ORIENTED X 3. PT UPDATED ON LATEST LAB RESULTS, SEEN IMPROVED RENAL FUNCTION. FAMILY AT BEDSIDE, SUPPORTIVE.
--- NOTE | 2019-11-28 12:00 | NUR ---
PT CONTINUES WITHOUT EVIDENCE OF DISTRESS, FAMILY CONTINUES TO COME AND GO.
--- NOTE | 2019-11-28 14:55 | NUR ---
PT WITH ABDOMINAL DISCOMFORT, TELEPHONE ORDER CLERK ROOM SERVICE AWARE. PT RESTS IN THE BED WITH EYES CLOSED.
[2019-11-28 15:30] VITALS: BP 148/71
[2019-11-28 19:16] VITALS: BP 127/66
[2019-11-28 19:33] LABS: URINE BILIRUBIN - DIPSTICK NEGATIVE (NEGATIVE); URINE BLOOD DIPSTICK SMALL (NEGATIVE); URINE COLOR YELLOW; URINE GLUCOSE - DIPSTICK NEGATIVE (NEGATIVE); URINE KETONE NEGATIVE (NEGATIVE); URINE LEUK ESTERASE NEGATIVE (NEGATIVE); URINE NITRITE - DIPSTICK NEGATIVE (Negative); URINE PROTEIN - DIPSTICK NEGATIVE (NEG-TRACE); URINE SPECIFIC GRAVITY 1.015; URINE UROBILINOGEN - DIPSTICK 0.2 E.U./dL (0.2)
[2019-11-28 19:35] LABS: URINE SQUAMOUS EPITHELIAL CELL FEW EPI/hpf (0-FEW); URINE WBC 0-2 WBC/hpf (0-5)
--- NOTE | 2019-11-28 20:45 | NUR ---
pt. a/o x2. able to make needs known. no c/o pain at this time. no acute distress. medications given per md order. tolerated well. pt. awake in bed with call light within reach.
[2019-11-28 23:34] VITALS: BP 106/61
--- NOTE | 2019-11-29 02:06 | NUR ---
pt. resting in bed with eyes closed no acute distress noted. call light within reach. bed in the lowest position
[2019-11-29 04:21] VITALS: BP 123/70
[2019-11-29 05:22] LABS: HEMATOCRIT 26.8 % (37.0-47.0); HEMOGLOBIN 8.5 g/dl (12.0-16.0); IMMATURE GRANULOCYTES 0.6 % (0.0-5.0); MEAN CELL VOLUME 88.2 fL CALC (80.0-100.0); MEAN CORPUSCULAR HGB CONC 31.7 g/L CALC (32.0-36.0); NEUT# 2.41 thou/uL (2.00-7.15); RED BLOOD COUNT 3.04 mill/uL (4.20-5.60); RED CELL DISTRI WIDTH 16.8 % (11.5-15.5)
[2019-11-29 05:39] LABS: ANION GAP 14 (6-22 (CALC)); BUN 16 mg/dL (8-23); BUN/CREATININE RATIO 20 (12-20 (CALC)); CARBON DIOXIDE 21 mmol/l (22-30); CHLORIDE 101 mmol/l (95-108); CREATININE 0.8 mg/dL (0.5-1.0); GFR > 60 ML/MIN (>=60 (CALC)); GFR FOR AFR.AMER. > 60 ML/MIN (>=60 (CALC)); POTASSIUM 4.6 mmol/l (3.5-5.1); SODIUM 131 mmol/l (137-146)
--- NOTE | 2019-11-29 06:22 | NUR ---
pt resting in bed with eyes closed. no acute distress noted. call light within reach. bed in lowest position
[2019-11-29 08:00] VITALS: BP 167/55
[2019-11-29 11:00] VITALS: BP 115/66
== END 2019-11-29 15:25 ==
LOC: ED 20:28 → ED-I 21:46 → ED 22:47 → MS2 22:48
PROVIDERS: Emergency Medicine; Nurse Practitioner Family; ADMIT Internal Medicine; ATTEND Internal Medicine
PROC: 30233N1 Transfusion of Nonautologous Red Blood Cells into Peripheral Vein, Percutaneous Approach (ICD-10-PCS; principal; 2019-11-26)
PROC: 30233N1 Transfusion of Nonautologous Red Blood Cells into Peripheral Vein, Percutaneous Approach (ICD-10-PCS; 2019-11-26)
DX: C94.6 Myelodysplastic disease, not elsewhere classified (principal); E87.5 Hyperkalemia; N17.9 Acute kidney failure, unspecified; G43.909 Migraine, unspecified, not intractable, without status migrainosus; R19.5 Other fecal abnormalities; R50.9 Fever, unspecified; E86.0 Dehydration; I12.9 Hypertensive chronic kidney disease with stage 1 through stage 4 chronic kidney disease, or unspecified chronic kidney disease; N18.2 Chronic kidney disease, stage 2 (mild); E03.9 Hypothyroidism, unspecified; I25.10 Atherosclerotic heart disease of native coronary artery without angina pectoris; E78.5 Hyperlipidemia, unspecified; E87.1 Hypo-osmolality and hyponatremia; Z87.891 Personal history of nicotine dependence
CPT/HCPCS: G0378; P9016

== ENCOUNTER 2020-01-13 14:05 | Inpatient (IN) | payer MEDICARE, MEDICAID ==
[~2020-01-13] VITALS: Ht 154.9 cm; Wt 53.5 kg
[2020-01-13] VITALS (9 sets, daily range): BP systolic 124–152; BP diastolic 58–83
[~2020-01-13 14:05] MED LIST changes: +DIOVAN HCT PO; +FUROSEMIDE20 MG PO
--- NOTE | 2020-01-13 14:15 | NUR ---
PATIENT TO ROOM VIA EMS AND PHYSICIAN AT BEDSIDE FOR EVAL
[2020-01-13 14:42] LABS: IMMATURE GRANULOCYTES 1.4 % (0.0-5.0); MEAN CELL VOLUME 92.3 fL CALC (80.0-100.0); MEAN CORPUSCULAR HGB 27.6 pG CALC (26.0-32.0); MEAN CORPUSCULAR HGB CONC 29.8 g/L CALC (32.0-36.0); NEUT# 3.75 thou/uL (2.00-7.15); RED BLOOD COUNT 1.96 mill/uL (4.20-5.60); RED CELL DISTRI WIDTH 23.9 % (11.5-15.5)
[2020-01-13 14:57] LABS: HEMATOCRIT 18.1 % (37.0-47.0); HEMOGLOBIN 5.4 g/dl (12.0-16.0)
[2020-01-13 15:20] LABS: CREATININE 1.3 mg/dL (0.5-1.0)
--- NOTE | 2020-01-13 15:20 | NUR ---
PT PRESENTS WITH HEADACHE THAT HAS BEEN OCCURING SINCE PT WAS 14 YRS OLD. PT STATES HAVING THIS CONDITION THAT HAS BEEN PROGRESSIVLY WORST SINCE THE LAST FEW DAYS. PT DENIES DIZZINESS, BLURRED VISION, AND VOMITING. PLERRA. WILL CONTINUE TO MONITOR.
[2020-01-13 15:49] LABS: INTERNATIONAL NORMALIZED RATIO 1.2 RATIO (0.7-1.3)
--- NOTE | 2020-01-13 15:50 | NUR ---
AFTER REASSESSING PT, PT DAUGHTER CONFIRMED THAT PT HAS STATED BEING WEAK, DIZZY, AND NAUSEATED THE LAST WEEK. PT CONFIRMED INFORMATION. ABD HAS A FIRM TENSE PERIUMBILICAL AREA, PT HAS HAD GAS AND HAS BEEN CONSTIPATED. ALL INFORMATION PROVIDED BY DAUGHTER AND INFO CONFIRMED BY PT.
--- NOTE | 2020-01-13 16:40 | NUR ---
NEW IV HAS TO BE INITIATED SINCE L FORARM IV IS NO LONGER PATENET. NEW IV INITIATED IN RAC 20 G READY FOR BLOOD TRANSFUSION
--- NOTE | 2020-01-13 17:06 | NUR ---
STARTED BLOOD TRANSFUSION IN RAC 20 G. BLOOD FLOWING PATENTLY. PT DENIES ANY PAINS AT THIS TIME. BEFORE INFUSION PT WAS NOTIFIED TO NOTIFY IF ANY SIGNS OF REACTION TO BLOOD, PT AND DAUGHTER VERBALIZED UNDERSTANDING. STARTED 15 MIN OBSERVATION.
--- NOTE | 2020-01-13 18:06 | NUR ---
BLOOD CONTINUE TO INFUSE, IV PATENT AND PT DENIES ANY PAIN OR REACTION. VITALS ARE STABLE. CALL LIGHT WITHIN REACH.
--- NOTE | 2020-01-13 18:33 | NUR ---
GAVE REPORT TO NILE.
--- NOTE | 2020-01-13 18:36 | NUR ---
PT TRANSPORTED TO [facility] STABLE AND IN NO DISTRESS. CARE ASSUMED TO NILE
--- NOTE | 2020-01-13 18:55 | NUR ---
PT ARRIVED TO UNIT FROM ED ON STRETCHER, UNIT PRBC TRANSFUSING. ADMITTED TO ROOM 270, ORIENTED TO UNIT, ROOM, BED AND CALL LIGHT. PT IS ACCOMPANIED BY HER DAUGHTER. PT DENIES NEEDS AT THIS TIME. CALL LACEY IN REACH, AGREES TO CALL PRN.
--- NOTE | 2020-01-13 18:56 | NUR ---
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
--- NOTE | 2020-01-13 20:00 | NUR ---
ASSESMENT COMPLETE. PLAN OF CARE REVIEWED W/ PT AND PT'S DAUGHTER AND SON WHO ARE CURRENTLY PRESENT @ BEDSIDE. ALL PRESENT VERBALIZE UNDERSTANDING AND DENY QUESTIONS AT THIS TIME. CALL LACEY WITHIN REACH, AGREES TO CALL PRN.
--- NOTE | 2020-01-14 | NUR ---
S/P TRANSFUSION OF 2 UNITS PRBC W/O INCIDENT. PT TOLERATED WELL. PT APPEARS TO BE SLEEPING COMFORTABLY W/ NO APPARENT DISTRESS OR DISCOMFORT, RESP REG/UNLABORED. CALL LACEY REMAINS WITHIN REACH. DAUGHTER IS SPENDING THE NIGHT AND IS SLEEPING ON A COT AT THE BEDSIDE.
[2020-01-14 03:52] VITALS: BP 117/62
--- NOTE | 2020-01-14 04:31 | NUR ---
PT APPEARS TO BE SLEEPING COMFORTABLY, NO APPARENT DISTRESS/DISCOMFORT. RESP REG & UNLABORED. CALL LACEY REMAINS WITHIN REACH. DAUGHTER REMAINS AT BEDSIDE.
[2020-01-14 06:30] LABS: HEMATOCRIT 25.8 % (37.0-47.0); HEMOGLOBIN 8.3 g/dl (12.0-16.0)
--- NOTE | 2020-01-14 07:40 | NUR ---
SPOKE WITH DR FREDERICK RE: PT HAVING HEADACHE INQUIRED IF COULD GET ANYTHING. CONTINEU TO OSEBRVE AND MONITOR.
[2020-01-14] MEDS ORDERED: FIORICET PO (08:16)
[2020-01-14 09:30] VITALS: BP 162/89
--- NOTE | 2020-01-14 09:30 | NUR ---
ASSESSMENT IS COMPLETRED; FAMILY IN THE ROOM./ IV SITE IS FREE FROM REDNESS OR EDEMA. HR IS REG,PULSES ARE STRONG X4, ABD IS SOFT WITH ACTIVE BS.,BREATH SOUNDS ARE CLEAR,BILATERALLY. PT C/O HEADACHE. PLACED A COOL CLOTH ON HER HEAD AND NECK. CONTINUE TO OSBERVE AND MONITOR.
[2020-01-14 11:30] VITALS: BP 160/86
--- NOTE | 2020-01-14 12:15 | NUR ---
PT IS RELAXING IN BED WITH NO DISTRESS NOTED IV SITE IS FREE FROM REDNESS OR EDEMA. FAMILY IN THE ROOM. CONTINUE TO OBSERVE AND MONITR.
--- NOTE | 2020-01-14 13:05 | NUR ---
RECEIVED A CALL FROM ER RE: TELE READING AN ALARM FOR SVT. CHECKED ON PT AND FOUND OUT THAT PT WAS GOING TO THE BATHROOM.
--- NOTE | 2020-01-14 13:40 | NUR ---
SPOKE WITH ERIKA MONGE IN OR RE: COLONOSCOPY AND EGD IN THE AM. HAS BEEN ACKNOWLEDGED.
[2020-01-14 13:53] LABS: HEMATOCRIT 27.4 % (37.0-47.0); HEMOGLOBIN 8.8 g/dl (12.0-16.0)
--- NOTE | 2020-01-14 15:00 | NUR ---
PT WAS STARTED ON NULYTELY. FAMILY IN THE ROOM. CONTINEU TO OBSERVE AND MONITOR.
[2020-01-14 16:00] VITALS: BP 161/81
--- NOTE | 2020-01-14 16:15 | NUR ---
PT IS RELAXING IN BED WITH NO DISTRESS NOTED. IV SITE IS FREE FROM REDNESS OR EDEMA. PT IS DRINKING THE NULYTELY. CONTINUE TO OSBEVE AND MONITOR.
[2020-01-14 18:45] VITALS: BP 152/83
--- NOTE | 2020-01-14 19:32 | NUR ---
PT SITTING ON THE SIDE OF THE BED. A&O X3. NO DISTRESS NOTED. PT C/O OF A SMALL HEADACHE. EXPLAINED TO THE PT THAT SHE WAS TO BE NPO AFTER MIDNIGHT DUE TO PROCEDURE, PT VERBALIZED UNDERSTANDING. PROCEDURE CONSENT TO BE OPTAINED TONIGHT. DISCUSSED POC. ASSESSMENT COMPLETED. CALL LIGHT IN REACH. CONTINUE TO MONITOR.
[2020-01-14 21:27] LABS: HEMATOCRIT 27.2 % (37.0-47.0); HEMOGLOBIN 8.6 g/dl (12.0-16.0)
--- NOTE | 2020-01-14 21:44 | NUR ---
PT SLEEPING IN BED WITH DAUGHTER AT BEDSIDE. NO DISTRESS NOTED. CALL LIGHT IN REACH. CONTINUE TO MONITOR.
[2020-01-15] VITALS (10 sets, daily range): BP systolic 126–172; BP diastolic 63–101
--- NOTE | 2020-01-15 00:02 | NUR ---
PT SLEEPING IN BED WITH DAUGHTER AT BEDSIDE. NO DISTRESS NOTED. CONTINUE TO MONITOR.
--- NOTE | 2020-01-15 04:02 | NUR ---
ATTEMPTED TO OBTAIN URINE SPECIMEN. BT HAD BM WHEN ATTEMPTING TO PROVIDE SAMPLE.
--- NOTE | 2020-01-15 05:10 | NUR ---
INFORMED CONSENT FOR EGD AND COLONOSCOPY OBTAINED.
--- NOTE | 2020-01-15 05:15 | NUR ---
ATTEMPTED TO OBTAIN URINE SPECIMEN AGAIN, UNSUCCESSFULL, PT HAD SMALL BM WHEN TRYING TO PROVIDE SAMPLE.
[2020-01-15 05:38] LABS: HEMATOCRIT 25.5 % (37.0-47.0); HEMOGLOBIN 8.2 g/dl (12.0-16.0); MEAN CELL VOLUME 87.9 fL CALC (80.0-100.0); MEAN CORPUSCULAR HGB 28.3 pG CALC (26.0-32.0); MEAN CORPUSCULAR HGB CONC 32.2 g/L CALC (32.0-36.0); RED BLOOD COUNT 2.9 mill/uL (4.20-5.60); RED CELL DISTRI WIDTH 20.2 % (11.5-15.5)
[2020-01-15 06:09] LABS: ANION GAP 14 (6-22 (CALC)); BUN 15 mg/dL (8-23); BUN/CREATININE RATIO 16 (12-20 (CALC)); CARBON DIOXIDE 20 mmol/l (22-30); CHLORIDE 101 mmol/l (95-108); CREATININE 0.9 mg/dL (0.5-1.0); GFR 59 ML/MIN (>=60 (CALC)); GFR FOR AFR.AMER. > 60 ML/MIN (>=60 (CALC)); MAGNESIUM 1.5 mg/dL (1.6-2.3); POTASSIUM 4.4 mmol/l (3.5-5.1); SODIUM 131 mmol/l (137-146)
--- NOTE | 2020-01-15 07:00 | NUR ---
REPORT RECEIVED FROM MARIPOSA MARR;PT APPEARS TO BE SLEEPING IN SEMI FOWLERS POSITION WITH FAMILY AT BEDSIDE;RESPIRATIONS EVEN AND UNLABORED ON RA;NO S/S OF DISTRESS NOTED;PROTONIX DRIP INFUSING WITH EASE PER ORDER;TELE MONITORING IN PLACE;NPO DIET REINFORCED;ALL SAFETY PRECAUTIONS NOTED WITH BED IN THE LOWEST POSITION AND CALL LIGHT IN REACH;WILL CONTINUE TO MONITOR
--- NOTE | 2020-01-15 07:52 | NUR ---
PT RESTING IN SEMI FOWLERS POSITION WITH DAUGHTER AT BEDSIDE,A&O X3;VS OBTAINED AND ASSESSMENT COMPLETED;PT DENIES ANY CURRENT PAIN OR DISCOMFORTS,PAIN SCALE AND REPORTING EDUCATED;RESPIRATIONS EVEN AND UNLABORED ON RA,CLEAR LUNG SOUNDS;ABDOMEN SOFT ON PALPATION AND ACTIVE IN ALL 4 QUADRANTS,TENDERNESS NOTED;WEAK PEDAL PULSES;SKIN INTACT;TELE MONITORING IN PLACE;#20G TO RAC FLUSHED AND PATENT,SITE APPEARS HEALTHY;PT DENIES ANY ADDITIONAL NEEDS AND IS ENCOURAGED TO CALL FOR ASSISTANCE IF NEEDED;CALL LIGHT IN REACH;WILL CONTINUE TO MONITOR
--- NOTE | 2020-01-15 08:04 | NUR ---
PT TRANSPORTED TO OR IN STABLE CONDITION VIA STRETCHER ACCOMPANIED BY MARIPOSA HERNANDES
--- NOTE | 2020-01-15 12:20 | NUR ---
PT RESTING IN SEMI FOWLERS POSITION;RESPIRATIONS EVEN AND UNLABORED ON RA;PT REPORTS HEADACHE PAIN RATING 7/10 ON THE PAIN AND REQUESTS PAIN MEDICATION,PT MEDICATED WITH PRN TYLENOL 650MG PO;TELE MONITORING IN PLACE;IV SITE PATENT;PT DENIES ANY ADDITIONAL NEEDS AT THIS TIME AND IS ENCOURAGED TO CALL FOR ASSISTANCE IF NEEDED;CALL LIGHT IN REACH;WILL CONTINUE TO MONITOR
--- NOTE | 2020-01-15 15:43 | NUR ---
REMOVED IV FROM L AC, INFORMED DAUGHTER MIGUEL THAT PATIENT LINE TO RUE AC INFILTRATED WHILE IN THE OR SWELLING AND REDNESS NOTED. EDUCATED ON ICE THERAPY AND S/S OF INFENCTION AND TO FOLLOW UP WITH DOCTOR IF OBSERVED ANY CHANGES TO RUE.
--- NOTE | 2020-01-15 15:50 | NUR ---
ALL DISCHARGE INSTRUCTIONS PROVIDED AT THIS TIME TO PT AND DAUGTER;PT INSTRUCTED TO F/U WITH HEMOTOLOGIST;IV SITE WAS REMOVED WITH CATHETER INTACT;PT DENIES ANY ADDITIONAL QUESTIONS OR NEEDS;WHEELCHAIR TO BE PROVIDED FOR D/C HOME.DAUGHTER TO TRANSPORT PT HOME.
--- NOTE | 2020-01-15 15:56 | NUR ---
Discharge instructions given. Patient verbalizes understanding of same. Discharged in stable condition via Wheelchair to Home with family. All belongings sent with pt. PT TRANSPORTED TO [facility] IN STABLE CONDITION VIA WHEELCHAIR ACCOMPANIED BY VOLUNTEER.DAUGHTER TO TRANSPORT PT HOME.
== END 2020-01-15 16:00 | disposition home or self-care (01) | DRG 811 ==
LOC: ED 14:05 → ED-I 14:37 → ED 14:37 → ED-I 15:56 → ED 16:08 → MS2 16:09
PROVIDERS: Family Medicine; Nurse Practitioner Family; ADMIT Internal Medicine; ATTEND Internal Medicine
PROC: 30233N1 Transfusion of Nonautologous Red Blood Cells into Peripheral Vein, Percutaneous Approach (ICD-10-PCS; principal; 2020-01-13)
PROC: 30233N1 Transfusion of Nonautologous Red Blood Cells into Peripheral Vein, Percutaneous Approach (ICD-10-PCS; 2020-01-13)
PROC: 0DJ08ZZ Inspection of Upper Intestinal Tract, Via Natural or Artificial Opening Endoscopic (ICD-10-PCS; 2020-01-15)
PROC: 0DJD8ZZ Inspection of Lower Intestinal Tract, Via Natural or Artificial Opening Endoscopic (ICD-10-PCS; 2020-01-15)
DX: D46.9 Myelodysplastic syndrome, unspecified (principal); K29.71 Gastritis, unspecified, with bleeding; K57.31 Diverticulosis of large intestine without perforation or abscess with bleeding; I12.9 Hypertensive chronic kidney disease with stage 1 through stage 4 chronic kidney disease, or unspecified chronic kidney disease; N18.2 Chronic kidney disease, stage 2 (mild); I25.10 Atherosclerotic heart disease of native coronary artery without angina pectoris; E03.9 Hypothyroidism, unspecified; K64.8 Other hemorrhoids; E78.5 Hyperlipidemia, unspecified; G43.909 Migraine, unspecified, not intractable, without status migrainosus; K44.9 Diaphragmatic hernia without obstruction or gangrene; Z91.19 Patient's noncompliance with other medical treatment and regimen; Z90.49 Acquired absence of other specified parts of digestive tract; Z87.891 Personal history of nicotine dependence
CPT/HCPCS: G0378; J3475; P9016; S0164

== ENCOUNTER 2020-05-10 23:05 | Observation (INO) | payer MEDICARE, MEDICAID ==
[~2020-05-10] VITALS: Ht 154.9 cm; Wt 55.5 kg
--- NOTE | 2020-05-10 23:10 | NUR ---
BY WC TO ROOM
[2020-05-11] MEDS ORDERED: HYDRO PO (00:02)
[2020-05-11] MEDS ORDERED: VALSARTAN PO (00:02)
[2020-05-11] MEDS ORDERED: PROCRIT2000 UNIT/ SC (00:04)
--- NOTE | 2020-05-11 00:10 | NUR ---
NO C/O CP OR SOB OFFERED, V/S STABLE.
[2020-05-11 00:16] LABS: HEMATOCRIT 30.4 % (37.0-47.0); IMMATURE GRANULOCYTES 1.1 % (0.0-5.0); MEAN CORPUSCULAR HGB 27.8 pG CALC (26.0-32.0); MEAN CORPUSCULAR HGB CONC 29.6 g/dL CAL (32.0-36.0); NEUT# 3.17 thou/uL (2.00-7.15); RED BLOOD COUNT 3.24 mill/uL (4.20-5.60)
[2020-05-11 00:17] LABS: MEAN CELL VOLUME 93.8 fL CALC (80.0-100.0)
[2020-05-11 00:18] LABS: URINE BILIRUBIN - DIPSTICK NEGATIVE (NEGATIVE); URINE BLOOD DIPSTICK TRACE-INTACT (NEGATIVE); URINE COLOR YELLOW; URINE GLUCOSE - DIPSTICK NEGATIVE (NEGATIVE); URINE KETONE NEGATIVE (NEGATIVE); URINE LEUK ESTERASE TRACE (NEGATIVE); URINE NITRITE - DIPSTICK NEGATIVE (Negative); URINE PROTEIN - DIPSTICK 30 mg/dL (NEG-TRACE); URINE UROBILINOGEN - DIPSTICK 0.2 E.U./dL (0.2)
[2020-05-11 00:21] LABS: URINE EPITHELIAL CELLS FEW EPI/hpf (0-FEW)
[2020-05-11 00:22] LABS: URINE BACTERIA MODERATE hpf
[2020-05-11 00:26] LABS: ALBUMIN 4.2 g/dL (3.2-5.0); BILIRUBIN, TOTAL 0.4 mg/dL (0.0-1.4); CREATININE 1.1 mg/dL (0.5-1.0); POTASSIUM 4.2 mmol/l (3.5-5.1); TOTAL PROTEIN 7.8 g/dL (6.3-8.2)
[2020-05-11 00:33] LABS: INTERNATIONAL NORMALIZED RATIO 1.2 RATIO (0.7-1.3); PROTHROMBIN TIME 12.5 SECONDS (9.0-12.5)
--- NOTE | 2020-05-11 01:15 | NUR ---
PT GIVEN ASA PER MD ORDER.
--- NOTE | 2020-05-11 02:01 | NUR ---
RESTING QUIETLY ON STRETCHER, NO C/O AT THIS TIME
--- NOTE | 2020-05-11 02:55 | NUR ---
MD IN ROOM TO DISCUSS CLINICAL FINDINGS WITH PT. AND TO ALSO MAKE HER AWARE OF ADMISSION. VERBALIZED UNDERSTANDING.
--- NOTE | 2020-05-11 03:19 | NUR ---
IV LASIX GIVEN PER MD ORDER.
--- NOTE | 2020-05-11 03:54 | NUR ---
Admission Note Report Given to: MARY GRACE MONGE Transported by: Wheelchair X Stretcher Transported with: X Nurse Transporter X Patent IV O2 X String Studies Director Location: ICU X MS2
--- NOTE | 2020-05-11 04:00 | NUR ---
PT. VOIDED APPROX. 500 ML CLEAR CAROL URINE ON BSC CHAIR.
--- NOTE | 2020-05-11 04:05 | NUR ---
PT. TAKEN TO MT FLOOR VIA STRETCHER, NO C/O.
--- NOTE | 2020-05-11 04:12 | NUR ---
PT ARRIVED TO THE MED SURG UNIT VIA STRETCHER ACCOMPANIED BY ED NURSE. PT APPEARS TO BE STABLE AT THIS TIME. PT SELF AMBULATED W/1X STANDBY ASSIST TO BED FROM STRETCHER. AIDE IS IN W/PT OBTAINING V/S AND ORIENTING PT TO ROOM.
[2020-05-11 04:40] VITALS: BP 156/88
--- NOTE | 2020-05-11 04:48 | NUR ---
PT ASSESSMENT COMPLETED AT THIS TIME. PT DENIES N/V/PAIN AT THIS TIME. DENIES ANYTHING TO DRINK OR EAT, BUT PT PROVIDED ICEWATER AT BEDSIDE. PT REMINDED OF CALL LIGHT USAGE, LOCX3. PT VERBALIZED UNDERSTANDING.
--- NOTE | 2020-05-11 05:41 | NUR ---
PT SLEEPING, NO S/O DISTRESS NOTED. PT MEDICATED ORDERS PROVIDE.
[2020-05-11 07:19] VITALS: BP 148/78
--- NOTE | 2020-05-11 07:19 | NUR ---
PT RESTING IN BED, NO SIGNS OF DISTRESS NOTED, RESP EVEN AND UNLABORED. PT ALERT AND ORIENTED X3, DISCUSSED POC, PT DENIES CP BUT C/O HEADACHE. ASSESSMENT COMPLETED, CALL LIGHT IN REACH,CONTINUE TO MONITOR.
--- NOTE | 2020-05-11 08:33 | NUR ---
CALL MADE TO [facility]AN REGARDING CRITICAL TROPONIN, ORDERS TO GIVE 324 ASA, START LOW DOSE HEPARIN GTT, AND TRANSFER TO [facility]. CALL MADE TO [facility] INFORMATION PROVIDED TO ASHISH-NURSING TOBACCO WEIGHER. AWAITING RETURN CALL.
--- NOTE | 2020-05-11 09:05 | NUR ---
CALL MADE TO [facility] SPOKE WITH KOFI INFORMATION PROVIDED FOR TRANSFER, KOFI TO RETURN CALL WITH BED NUMBER.
--- NOTE | 2020-05-11 09:24 | NUR ---
PT RESTING IN BED SPEAKING ON THE PHONE, DISCUSSED TRANSFER WITH PT, PT VERBALIZED UNDERSTANDING. CONSENT FOR TRANSFER SIGNED, PT MEDICATED PER JAN. SPOKE WITH DAUGHTER REGARDING TRANSFER. PT DENIES CHEST PAIN BUT C/O HEADACHE MD CALLED ABOUT FIORICET, PER MD NO FIORICET AT THIS TIME. NITRO PASTE REMOVED. CALL LIGHT IN REACH,CONTINUE TO MONITOR.
--- NOTE | 2020-05-11 10:22 | NUR ---
DISCUSSED HEPARIN GTT AND LIPITOR, PT AGREED. VOICES NO NEEDS OR COMPLAINTS AT THIS TIME. PT SPEAKING WITH DAUGHTER ON PHONE, BOLUS GIVEN AND INITIATED HEPARIN GTT, CALL LIGHT IN REACH,CONTINUE TO MONITOR.
[2020-05-11 11:27] VITALS: BP 154/79
--- NOTE | 2020-05-11 11:42 | NUR ---
RECEIVED A BED NUMBER FROM [facility]. [phone] [facility] CALLED TO ARRANGE TRANSPORT. INFORMATION GIVEN TO CHAD. STATED ETA IS 30 MINUTES.
--- NOTE | 2020-05-11 11:55 | NUR ---
PT AWARE OF ACCEPTING FACILITY AND ROOM NUMBER. DAUGHTER AT BEDSIDE. ETA 30 MIN.
--- NOTE | 2020-05-11 12:05 | NUR ---
[facility] ARRIVED, DAUGHTER AT BEDSIDE.
--- NOTE | 2020-05-11 12:15 | NUR ---
Discharge instructions given. Patient verbalizes understanding of same. Discharged in stable condition via Medical Transport to [facility] with staff. All belongings sent with pt.
--- NOTE | 2020-05-11 12:23 | NUR ---
REPORT GIVEN TO BRETT AT [facility]
== END 2020-05-11 12:14 | disposition short-term general hospital (02) ==
LOC: ED 23:05 → ED-I 23:28 → ED 05-11 03:05 → ED-I 05-11 03:06 → MS2 05-11 03:40
PROVIDERS: Emergency Medicine; ADMIT Internal Medicine; ATTEND Internal Medicine
DX: I21.4 Non-ST elevation (NSTEMI) myocardial infarction (principal); I10 Essential (primary) hypertension; I25.10 Atherosclerotic heart disease of native coronary artery without angina pectoris; C94.6 Myelodysplastic disease, not elsewhere classified; E03.9 Hypothyroidism, unspecified; E78.5 Hyperlipidemia, unspecified; Z87.891 Personal history of nicotine dependence; Z20.828 Contact with and (suspected) exposure to other viral communicable diseases
CPT/HCPCS: G0378; J1644

== ENCOUNTER 2020-06-17 13:48 | Observation (INO) | payer MEDICARE, MEDICAID ==
[2020-06-17] VITALS (9 sets, daily range): BP systolic 115–134; BP diastolic 57–77
[~2020-06-17] VITALS: Ht 152.4 cm; Wt 50.9 kg
[~2020-06-17 13:48] MED LIST changes: +HYDRO PO; +PROCRIT2000 UNIT/ SC; +VALSARTAN PO
--- NOTE | 2020-06-17 14:04 | NUR ---
PT IMMEDIATELY TO ROOM 10 VIA WC FOR TRIAGE. PT C/O LOW HGB, WEAKNESS, AND STATES " DR CANTU SENT ME OVER HERE FOR EVALUATION"
--- NOTE | 2020-06-17 14:17 | NUR ---
MEERA IRVIN AT BEDSIDE FOR RECTAL EXAM. HEMOCCULT POSITIVE. PT TOLERATED WELL.
--- NOTE | 2020-06-17 14:30 | NUR ---
PT ASSESSED. CHANGED TO GOWN. MONITORS IN PLACE. PT AO X 3. SKIN PALE WARM AND DRY. REPORTS SENT BY DOCTORS OFFICE DUE TO LOW HEMOGLOBIN
[2020-06-17 14:36] LABS: MEAN CELL VOLUME 92.1 fL CALC (80.0-100.0); MEAN CORPUSCULAR HGB 26.8 pG CALC (26.0-32.0); NEUT# 2.15 thou/uL (2.00-7.15); RED BLOOD COUNT 2.28 mill/uL (4.20-5.60); RED CELL DISTRI WIDTH 18.5 % (11.5-15.5)
[2020-06-17 14:43] LABS: HEMOGLOBIN 6.1 g/dl (12.0-16.0)
[2020-06-17 14:51] LABS: ALBUMIN 4.3 g/dL (3.2-5.0); BILIRUBIN, TOTAL 0.3 mg/dL (0.0-1.4); CREATININE 1.3 mg/dL (0.5-1.0); POTASSIUM 4.6 mmol/l (3.5-5.1); TOTAL PROTEIN 8.1 g/dL (6.3-8.2)
--- NOTE | 2020-06-17 15:44 | NUR ---
BLOOD TRANSFUSION STARTED.
--- NOTE | 2020-06-17 15:56 | NUR ---
BREATH SOUNDS EQUAL AND CLEAR BILAT. BLOOD TRANSFUSING.
--- NOTE | 2020-06-17 17:00 | NUR ---
PT RESTING ON STRETCHER AWAITING ADMISSION
--- NOTE | 2020-06-17 17:30 | NUR ---
MED SURG UNABLE TO TAKE REPORT AT THIS TIME
--- NOTE | 2020-06-17 18:01 | NUR ---
REPORT GIVEN TO COLLEEN MONGEFINANCE ANALYST
--- NOTE | 2020-06-17 18:07 | NUR ---
PT TRANSPORTED TELEMETRY IN PLACE TO [facility]
--- NOTE | 2020-06-17 18:12 | NUR ---
PT ARRIVED TO MED/SURG ROOM 271 IN STABLE CONDITION VIA STRETCHER ACCOMPANIED BY THOMAS MILTON RN AND DAUGHTER;WT AND VS OBTAINED BY RYAN MULLER;PT A&O X3, ORIENTED TO ROOM AND CALL LIGHT SYSTEM;TELE MONITORING IN PLACE;#20G TO RFA INFUSING NS @ K[facility] FOR SECOND UNIT OF PRBC'S WITH EASE;PT DENIES ANY CURRENT PAIN OR DISCOMFORTS,PAIN SCALE AND REPORTING EDUCATED;RESPIRATIONS REMAIN EVEN AND UNLABORED ON RA;PT ENCOURAGED TO CALL FOR ASSISTANCE IF NEEDED;FALL PRECAUTIONS IN PLACE WITH BED IN THE LOWEST POSITION AND CALL LIGHT IN REACH;WILL CONTINUE TO MONITOR
--- NOTE | 2020-06-17 18:21 | NUR ---
CALLED IN CONSULTATION FOR PATIENT WITH DR NEAL FOR GI BLEED SPOKE WITH .HE STATED HE WOULD BE IN 06/18/20
[2020-06-17 19:25] LABS: URINE BILIRUBIN - DIPSTICK NEGATIVE (NEGATIVE); URINE BLOOD DIPSTICK NEGATIVE (NEGATIVE); URINE COLOR YELLOW; URINE GLUCOSE - DIPSTICK NEGATIVE (NEGATIVE); URINE KETONE NEGATIVE (NEGATIVE); URINE LEUK ESTERASE NEGATIVE (NEGATIVE); URINE NITRITE - DIPSTICK NEGATIVE (Negative); URINE PROTEIN - DIPSTICK NEGATIVE (NEG-TRACE); URINE UROBILINOGEN - DIPSTICK 0.2 E.U./dL (0.2)
--- NOTE | 2020-06-17 20:07 | NUR ---
PATIENT ONGOING 2ND UNIT OF PRBC, NO REACTIONS NOTED AT THIS TIME, VSS AND RECORDED.
--- NOTE | 2020-06-17 20:58 | NUR ---
ONGOING 2ND UNIT OF PRBC, NO REACTION NOTED AT THIS TIME, NO DISCOMFORTS, BREATHING EVEN AND UNLABORED CALL LIGHT AT REACH.
--- NOTE | 2020-06-17 22:21 | NUR ---
CALLED [facility] AND SPOKE TO DINORA AND CLARIFIED PROTONIX AND STATED MAYBE GIVEN IV PUSH.
--- NOTE | 2020-06-17 22:34 | NUR ---
2ND UNIT OF PRBC FINISHED, V/S TAKEN AND RECORDED, NO REACTION NOTED THROUGHOUT INFUSION, DENIES PAIN AND DISCOMFORTS.BREATHING EVEN AND UNLABORED, CALL LIGHT AT REACH.
[2020-06-18] VITALS (7 sets, daily range): BP systolic 112–154; BP diastolic 58–91
--- NOTE | 2020-06-18 00:26 | NUR ---
PATIENT SLEEPING WITH EYES CLOSED, BREATHING EVEN AND UNLABORED CALL LIGHT AT REACH.
--- NOTE | 2020-06-18 03:27 | NUR ---
PATIENT RESTING IN BED WITH EYES CLOSED, BREATHING EVEN AND UNLABORED CALL LIGHT AT REACH.
[2020-06-18 06:09] LABS: HEMATOCRIT 26.9 % (37.0-47.0); IMMATURE GRANULOCYTES 0.6 % (0.0-5.0); MEAN CELL VOLUME 89.1 fL CALC (80.0-100.0); MEAN CORPUSCULAR HGB 27.8 pG CALC (26.0-32.0); MEAN CORPUSCULAR HGB CONC 31.2 g/dL CAL (32.0-36.0); NEUT# 1.96 thou/uL (2.00-7.15); RED BLOOD COUNT 3.02 mill/uL (4.20-5.60); RED CELL DISTRI WIDTH 17.3 % (11.5-15.5)
[2020-06-18 06:25] LABS: CREATININE 1.1 mg/dL (0.5-1.0); POTASSIUM 4.3 mmol/l (3.5-5.1)
[2020-06-18 06:39] LABS: HEMOGLOBIN 8.4 g/dl (12.0-16.0)
--- NOTE | 2020-06-18 07:15 | NUR ---
REPORT RECEIVED FROM MARIPOSA VINCENT;PT APPEARS TO BE SLEEPING IN SEMI FOWLERS POSITION;NO S/S OF DISTRESS NOTED;RESPIRATIONS EVEN AND UNLABORED ON RA;TELE MONITORING IN PLACE;ALL SAFETY PRECAUTIONS NOTED WITH BED IN THE LOWEST POSITION AND CALL LIGHT IN REACH;WILL CONTINUE TO MONITOR
--- NOTE | 2020-06-18 08:50 | NUR ---
PT RESTING IN SEMI FOWLERS POSITION,A&O X3,VS OBTAINED AND ASSESSMENT COMPLETED;PT DENIES ANY CURRENT PAIN OR DISCOMFORTS,PAIN SCALE AND REPORTING EDUCATED;RESPIRATIONS EVEN AND UNLABORED ON RA,CLEAR LUNG SOUNDS;ABDOMEN SOFT ON PALPATION AND ACTIVE IN ALL 4 QUADRANTS;WEAK PEDAL PULSES;SKIN INTACT;TELE MONITORING IN PLACE;#20G TO RFA FLUSHED AND PATENT,SITE APPEARS HEALTHY;PT DENIES ANY ADDITIONAL NEEDS AT THIS TIME AND IS ENCOURAGED TO CALL FOR ASSISTANCE IF NEEDED;FALL PRECAUTIONS IN PLACE WITH BED IN THE LOWEST POSITION AND CALL LIGHT IN REACH;WILL CONTINUE TO MONITOR
--- NOTE | 2020-06-18 09:35 | NUR ---
CORNELIUS GLOVER NOTIFIED OF PLAN OR CASE FOR COLONOSCOPY/EGD TOMORROW PER .
--- NOTE | 2020-06-18 09:51 | NUR ---
PT screen Patient is screened for rehab intervention and it is felt she would benefit from PT referral
--- NOTE | 2020-06-18 10:05 | NUR ---
INFORMED CONSENT OBTAINED AT THIS TIME FOR COLONOSCOPY/EGD. ALL RISKS AND BENEFITS DISCUSSED WITH PT WHO VERBALIZES UNDERSTANDING.
--- NOTE | 2020-06-18 11:20 | NUR ---
PT RESTING IN SEMI FOWLERS POSITION WATCHING TV;PT DENIES ANY CURRENT PAIN OR NEEDS,PAIN SCALE AND REPORTED EDUCATED;RESPIRATIONS EVEN AND UNLABORED ON RA;IV SITE PATENT;TELE MONITORING IN PLACE;PT EDUCATED ON CLEAR LIQUID DIET AND VERBALIZES UNDERSTANDING;RESP PANEL NASAL SWAB OBTAINED AT THIS TIME PER ORDER,PT TOLERATED WELL;PT DENIES ANY NEEDS AND IS ENCOURAGED TO CALL FOR ASSISTANCE IF NEEDED;FALL PRECAUTIONS REMAIN IN PLACE WITH BED IN THE LOWEST POSITION AND CALL LIGHT IN REACH;WILL CONTINUE TO MONITOR
--- NOTE | 2020-06-18 13:08 | NUR ---
PT MEDICATED WITH PRN TYLENOL 650MG PO FOR HEADACHE PAIN RATING 9/10 ON THE PAIN SCALE;WILL CONTINUE TO MONITOR
--- NOTE | 2020-06-18 14:35 | NUR ---
PT REPORTS THAT HEADACHE PAIN HAS NOT BEEN RELEIVED SINCE PRN TYLENOL ADMINISTRATION, PT REQUESTING SOMETHING ELSE FOR PAIN AT THIS TIME;OTILIA,RAMONRP NOTIFIED OF REQUEST;AWAITING NEW ORDERS;WILL CONTINUE TO MONITOR
--- NOTE | 2020-06-18 15:30 | NUR ---
PT RESTING ON BEDSIDE COMMODE AT THIS TIME;RESPIRATIONS REMAIN EVEN AND UNLABORED ON RA;PT REPORTS HEADACHE PAIN IS STILL PRESENT , FIORICET PROVIDED PER ORDER;TELE MONITORING IN PLACE;IV SITE PATENT;CLEAR LIQUID DIET REINFORCED;PT DENIES ANY ADDITIONAL NEEDS AT THIS TIME AND IS ENCOURAGED TO CALL FOR ASSISTANCE IF NEEDED;FALL PRECAUTIONS IN PLACE WITH CALL LIGHT IN REACH;WILL CONTINUE TO MONITOR
--- NOTE | 2020-06-18 16:00 | NUR ---
PT REPORTS HEADACHE HAS SUBSIDED SINCE FIORCETT ADMINISTRATION;PT DENIES ANY ADDITIONAL NEEDS AT THIS TIME;WILL CONTINUE TO MONITOR
--- NOTE | 2020-06-18 19:12 | NUR ---
REPORT FROM COLLEEN MAURICE. PT NOTED RESTING IN BED. ALERT AND ORIENTED. PT DENIES ANY PAIN OR DISCOMFORT AT THIS TIME. PT FINISHING BOWEL PREP. DISCUSSED POC AND NPO AFTER MIDNIGHT. PT VERBALIZED UNDERSTANDING. TEXTILE MACHINE MECHANIC IN PLACE. IV SITE APPEARS HEALTHY. PT DENIES ANY CURRENT WANTS OR NEEDS. CALL LIGHT WITHIN REACH. WILL CONTINUE TO MONITOR.
--- NOTE | 2020-06-18 23:58 | NUR ---
PT RESTING IN BED WITH EYES CLOSED. NO APPARENT DISTRESS NOTED. RESPIRATIONS EVEN AND UNLABORED. PT NPO AT THIS TIME. CALL LIGHT WITHIN REACH. WILL CONTINUE TO MONITOR.
[2020-06-19] VITALS (11 sets, daily range): BP systolic 103–142; BP diastolic 29–88
--- NOTE | 2020-06-19 03:36 | NUR ---
PT RESTING IN BED WITH EYES CLOSED. NO APPARENT DISTRESS NOTED. RESPIRATIONS EVEN AND UNLABORED. CALL LIGHT WITHIN REACH. WILL CONTINUE TO MONITOR.
--- NOTE | 2020-06-19 10:19 | NUR ---
Patient alert and oriented x3 , verb understanding of procedure. c/o headache, notified doctor. Explained to patient that medication will not be given because she is NPO, and if we give her anything by mouth we would have to delay the procedure. Patient off tlhe floor via stetcher
--- NOTE | 2020-06-19 14:53 | NUR ---
Patient returned to room
--- NOTE | 2020-06-19 15:21 | NUR ---
no orders on the chart, called surgery and spoke with Jodee she stated that she will let the doctor know
--- NOTE | 2020-06-19 16:26 | NUR ---
Spoke with ALBARO Braden, informed him that we did not have orders for patient diet, he stated that he would put in orders for clear liquid.
--- NOTE | 2020-06-19 16:44 | NUR ---
SPOKE WITH DR FISHMAN, STATED TO KEEP PATIENT UNTIL MORNING
--- NOTE | 2020-06-19 18:55 | NUR ---
REPORT FROM TEJINDER MAURICE. PT NOTED RESTING IN BED. ALERT AND ORIENTED. PT DENIES ANY PAIN OR DISCOMFORT AT THIS TIME. DISCUSSED POC. PT VERBALIZED UNDERSTANDING. FRONT EDGER IN PLACE. IV SITE APPEARS HEALTHY. PT DENIES ANY CURRENT WANTS OR NEEDS. CALL LIGHT WITHIN REACH. WILL CONTINUE TO MONITOR.
--- NOTE | 2020-06-19 23:14 | NUR ---
PT RESTING IN BED WITH EYES CLOSED. NO APPARENT DISTRESS NOTED. PT WAKES EASILY. DENIES ANY PAIN OR DISCOMFORT AT THIS TIME. CALL LIGHT WITHIN REACH. WILL CONTINUE TO MONITOR.
--- NOTE | 2020-06-20 03:45 | NUR ---
PT RESTING IN BED. NO APPARENT DISTRESS NOTED. RESPIRATIONS EVEN AND UNLABORED. CALL LIGHT WITHIN REACH. WILL CONTINUE TO MONITOR.
[2020-06-20 03:50] VITALS: BP 133/90
[2020-06-20 05:05] LABS: HEMATOCRIT 24.5 % (37.0-47.0); HEMOGLOBIN 7.6 g/dl (12.0-16.0); MEAN CELL VOLUME 90.1 fL CALC (80.0-100.0); MEAN CORPUSCULAR HGB 27.9 pG CALC (26.0-32.0); RED BLOOD COUNT 2.72 mill/uL (4.20-5.60); RED CELL DISTRI WIDTH 17.2 % (11.5-15.5)
[2020-06-20 05:33] LABS: ALBUMIN 3.7 g/dL (3.2-5.0); BILIRUBIN, TOTAL 0.3 mg/dL (0.0-1.4); CREATININE 1.1 mg/dL (0.5-1.0); POTASSIUM 4.7 mmol/l (3.5-5.1); TOTAL PROTEIN 6.7 g/dL (6.3-8.2)
[2020-06-20 08:10] VITALS: BP 111/70
[2020-06-20] MEDS ORDERED: PROTONIX40 M2 PO (08:29)
[2020-06-20 09:45] VITALS: BP 108/63
[2020-06-20 10:26] VITALS: BP 97/60
[2020-06-20 11:15] VITALS: BP 116/60
[2020-06-20 13:00] VITALS: BP 120/67
--- NOTE | 2020-06-20 14:34 | NUR ---
D/C INSTRUCTIONS GIVEN TO PT. PT VERBALIZES UNDERSTANDING. IV INTACT UPON REMOVAL
--- NOTE | 2020-06-20 14:50 | NUR ---
Discharge instructions given. Patient verbalizes understanding of same. Discharged in stable condition via Wheelchair to Home with staff. All belongings sent with pt.
--- NOTE | 2020-06-20 15:09 | NUR ---
1200 ALERT AND ORIENTED. ABLE TO VERBALIZE NEEDS. USES BSD TO VOID. PT RESTING COMFORTABLY IN BED. PT C/O OF MANLEY. INFORMED FIRE TENDER. FIORCET ORDERED. 1 UNITS OF BLOOD TRANSFUSING. NO S/S OF ADVERSE REACTIONS. FAIR APETITE. SCHEDULED TO BE D/C HOME TODAY POST TRANSFUSION.
== END 2020-06-20 14:36 | disposition home or self-care (01) ==
LOC: ED 13:48 → ED-I 16:10 → ED 16:43 → ED-I 16:44 → MS2 16:44
PROVIDERS: Nurse Practitioner Family; ADMIT Internal Medicine; ATTEND Internal Medicine
PROC: 30233N1 Transfusion of Nonautologous Red Blood Cells into Peripheral Vein, Percutaneous Approach (ICD-10-PCS; principal; 2020-06-17)
PROC: 30233N1 Transfusion of Nonautologous Red Blood Cells into Peripheral Vein, Percutaneous Approach (ICD-10-PCS; 2020-06-17)
PROC: 0DB78ZX Excision of Stomach, Pylorus, Via Natural or Artificial Opening Endoscopic, Diagnostic (ICD-10-PCS; 2020-06-19)
PROC: 0DJD8ZZ Inspection of Lower Intestinal Tract, Via Natural or Artificial Opening Endoscopic (ICD-10-PCS; 2020-06-19)
PROC: 30233N1 Transfusion of Nonautologous Red Blood Cells into Peripheral Vein, Percutaneous Approach (ICD-10-PCS; 2020-06-20)
DX: K25.4 Chronic or unspecified gastric ulcer with hemorrhage (principal); K57.31 Diverticulosis of large intestine without perforation or abscess with bleeding; K44.9 Diaphragmatic hernia without obstruction or gangrene; D64.9 Anemia, unspecified; I12.9 Hypertensive chronic kidney disease with stage 1 through stage 4 chronic kidney disease, or unspecified chronic kidney disease; N18.2 Chronic kidney disease, stage 2 (mild); N17.9 Acute kidney failure, unspecified; D46.9 Myelodysplastic syndrome, unspecified; I25.10 Atherosclerotic heart disease of native coronary artery without angina pectoris; G43.909 Migraine, unspecified, not intractable, without status migrainosus; E03.9 Hypothyroidism, unspecified; E78.5 Hyperlipidemia, unspecified; Z87.891 Personal history of nicotine dependence; Z90.49 Acquired absence of other specified parts of digestive tract; Z20.828 Contact with and (suspected) exposure to other viral communicable diseases; N18.3 Chronic kidney disease, stage 3 (moderate); D63.1 Anemia in chronic kidney disease
CPT/HCPCS: G0378; P9016; S0164

== ENCOUNTER 2020-07-04 20:40 | Inpatient (IN) | payer MEDICARE, MEDICAID ==
[~2020-07-04] VITALS: Ht 154.9 cm; Wt 56.3 kg
--- NOTE | 2020-07-04 20:40 | NUR ---
BY EMS TO ROOM.
--- NOTE | 2020-07-04 21:02 | NUR ---
TO ROOM 12 VIA EMS STRETCHER, C/O HEADACHE, GENERAL WEAKNESS.
--- NOTE | 2020-07-04 21:36 | NUR ---
FAMILY MEMBER AT BEDSIDE, PT WITH HOB ELEVATED,SMILING AND TALKING. VSS.
--- NOTE | 2020-07-04 21:42 | NUR ---
REPORT TO BLADE MONGE.
[2020-07-04 21:43] LABS: HEMATOCRIT 20.6 % (37.0-47.0); IMMATURE GRANULOCYTES 0.6 % (0.0-5.0); MEAN CELL VOLUME 92.4 fL CALC (80.0-100.0); MEAN CORPUSCULAR HGB 27.8 pG CALC (26.0-32.0); MEAN CORPUSCULAR HGB CONC 30.1 g/dL CAL (32.0-36.0); NEUT# 6.07 thou/uL (2.00-7.15); RED BLOOD COUNT 2.23 mill/uL (4.20-5.60); RED CELL DISTRI WIDTH 17.3 % (11.5-15.5)
[2020-07-04 21:52] LABS: URINE BILIRUBIN - DIPSTICK NEGATIVE (NEGATIVE); URINE BLOOD DIPSTICK NEGATIVE (NEGATIVE); URINE COLOR YELLOW; URINE GLUCOSE - DIPSTICK NEGATIVE (NEGATIVE); URINE KETONE NEGATIVE (NEGATIVE); URINE LEUK ESTERASE NEGATIVE (NEGATIVE); URINE NITRITE - DIPSTICK NEGATIVE (Negative); URINE PH 5.5 (4.5-8.0); URINE PROTEIN - DIPSTICK NEGATIVE (NEG-TRACE); URINE UROBILINOGEN - DIPSTICK 0.2 E.U./dL (0.2)
[2020-07-04 22:06] LABS: HEMOGLOBIN 6.2 g/dl (12.0-16.0)
[2020-07-04 22:08] LABS: BILIRUBIN, TOTAL 0.2 mg/dL (0.0-1.4); CREATININE 1.4 mg/dL (0.5-1.0); POTASSIUM 4.4 mmol/l (3.5-5.1); TOTAL PROTEIN 7.4 g/dL (6.3-8.2)
--- NOTE | 2020-07-04 22:40 | NUR ---
RESTING QUIETLY. VSS. NAD.
--- NOTE | 2020-07-04 23:15 | NUR ---
Admission Note Report Given to: MARIPOSA SANCHEZ Transported by: Wheelchair X Stretcher Transported with: X Nurse Transporter X Patent IV O2 X Stitch Separator Location: X ICU MS2
--- NOTE | 2020-07-04 23:25 | NUR ---
pt is NOT medsurg overflow.
--- NOTE | 2020-07-04 23:25 | NUR ---
85 yr old black female admitted icu8 as medsurg overflow to icu8 per stretcher from er. transferred self to bed. bed weight obtained. no active bleeding. nurse monitoring shows sinus rhythm ivcd hr 88. #20 rac saline lock. history obtained per pt & er record. oriented to room. fall & air/contact precautions initiated.
[2020-07-04 23:30] VITALS: BP 170/79
[2020-07-04 23:45] VITALS: BP 146/62
[2020-07-04 23:50] VITALS: BP 146/62
--- NOTE | 2020-07-04 23:53 | NUR ---
#1 unit blood began.
[2020-07-05] VITALS (17 sets, daily range): BP systolic 113–160; BP diastolic 54–80
--- NOTE | 2020-07-05 01:15 | NUR ---
assisted to bsc per request. voided well then back to bed.
--- NOTE | 2020-07-05 02:25 | NUR ---
#1 UNIT BLOOD INFUSED.
--- NOTE | 2020-07-05 02:40 | NUR ---
#2 unit blood began.
--- NOTE | 2020-07-05 04:37 | NUR ---
#2 unit blood infused.
--- NOTE | 2020-07-05 05:30 | NUR ---
lab here. blood drawn.
[2020-07-05 06:12] LABS: CREATININE 1.2 mg/dL (0.5-1.0); HEMATOCRIT 26.6 % (37.0-47.0); HEMOGLOBIN 8.5 g/dl (12.0-16.0); IMMATURE GRANULOCYTES 1.3 % (0.0-5.0); MEAN CELL VOLUME 87.8 fL CALC (80.0-100.0); MEAN CORPUSCULAR HGB 28.1 pG CALC (26.0-32.0); NEUT# 4.99 thou/uL (2.00-7.15); POTASSIUM 4.6 mmol/l (3.5-5.1); RED BLOOD COUNT 3.03 mill/uL (4.20-5.60); RED CELL DISTRI WIDTH 16.7 % (11.5-15.5)
[2020-07-05 06:13] LABS: ALBUMIN 3.5 g/dL (3.2-5.0); BILIRUBIN, TOTAL 0.3 mg/dL (0.0-1.4); TOTAL PROTEIN 6.5 g/dL (6.3-8.2)
--- NOTE | 2020-07-05 06:45 | NUR ---
RECIEVED REPORT FROM KAYLENE SANCHEZ. ASSUMED PT CARE.
--- NOTE | 2020-07-05 07:45 | NUR ---
PT A&0X4, ABLE TO MAKE NEEDS KNOWN. RESPIRATIONS EVEN/UNLABORED, SA02@98%RA. LS CLEAR THROUGHOUT. ABDOMEN SOFT/NON-TENDER, BSX4 ACTIVE. PT STATES SHE IS FEELING MUCH BETTER THIS AM. CALL LIGHT IN REACH. WILL MONITOR.
--- NOTE | 2020-07-05 09:00 | NUR ---
PT ASSISTED TO BSC, VOIDED. BACK TO BED. CALL LIGHT IN REACH. WILL MONITOR.
--- NOTE | 2020-07-05 10:15 | NUR ---
PT DAUGHTER MIGUEL CALLED WITH CODE, UPDATE GIVEN.
--- NOTE | 2020-07-05 10:32 | NUR ---
DR. BAUER AT BEDSIDE FOR ASSESSMENT AND TO DISCUSS PLAN OF CARE. NEW ORDERS RECIEVED.
--- NOTE | 2020-07-05 11:56 | NUR ---
SPOKE WITH DAUGHTER MIGUEL, UPDATE GIVEN. PT DIET ADVANCED TO CLEAR LIQUID. WILL MONITOR.
--- NOTE | 2020-07-05 13:16 | NUR ---
PT ASSISTED TO BSC, VOIDED. BACK TO BED.
--- NOTE | 2020-07-05 14:11 | NUR ---
DAUGHTER ARRIVED AT BEDSIDE.
--- NOTE | 2020-07-05 15:48 | NUR ---
DAUGHTER LEFT UNIT. PT RESTING IN BED, NO DISTRESS NOTED AT THIS TIME. CALL LIGHT IN REACH. WILL MONITOR.
--- NOTE | 2020-07-05 18:00 | NUR ---
PT ASSISTED TO BSC, VOIDED AND MODERATE BLK FORM BM. PT ASSISTED BACK TO BED. CALL LIGHT IN REACH. WILL MONITOR.
--- NOTE | 2020-07-05 19:45 | NUR ---
PATIENT'S DAUGHTER CALLED TO NOTIFY SHE HAS DROPPED OFF PATIENT'S GLAUCOMA EYE DROPS AT TH ER.
--- NOTE | 2020-07-05 19:48 | NUR ---
PT COMPLAINS OF HEADACHE, REPORTS TYLENOL DOES NOT HELP HER, AND SHE DOES NT REMEMBER WHAT SHE TAKES AT HOME FOR HER HEADACHES. I HAVE SEEN ON HER MED CLAIM HISTORY SHE HAS TAKEN FIORICET, I LET DR BAUER KNOW, NEW ORDERS RECEIVED. ORDER SENT TO .
--- NOTE | 2020-07-05 20:15 | NUR ---
PT PESTICIDE USE MEDICAL COORDINATOR LIGHT; ASSISTED TO BSC; MODERATE BLACK FORMED BM, VOIDED WELL; HEADACHE MEDICATION GIVEN; SAFELY BACK IN BED; CALL LIGHT WITHIN REACH.
--- NOTE | 2020-07-05 22:09 | NUR ---
PT IS AWAKE, ALERT AND ORIENTED X4. ON RA, DOES BECOME SOB WITH EXERTION ONLY. O2 SAT IS GREATER THAN 95%. NURSING ASSESSMENT PERFORMED. PT REPORTS SHE HAS EYE DROPS FOR HR GLAUCOMA SHE TAKES AT NIGHT, I LET HER KNOW HER DAUGHTER CAN DROP THEM OFF AT THE ER. PT ALSO C/O HEADACHE, LET HER KNOW I WILL ADDRESS IT WITH THE DOCTOR. RAC IV INTACT, IV FLUIDS AND NEW PROTONIX BAG INFUSING PROPERLY. SR ON TELE. POC DISCUSSED, PT UNDERSTANDS AND AGREES. SELF REPSOITIONS. CALL LIGHT WITHIN REACH.
[2020-07-06] VITALS (17 sets, daily range): BP systolic 112–173; BP diastolic 51–90
--- NOTE | 2020-07-06 00:07 | NUR ---
PT RODDING MACHINE TENDER LIGHT, ASSISTED TO BSC. PT VOIDED ONLY. PT SOB WITH EXERTION, O2 SAT IS 100%. PT NOW BACK IN BED, SELF REPSOTIONS. CALL LIGHT WITHIN REACH.
--- NOTE | 2020-07-06 03:16 | NUR ---
PATIENT RESTS WITH EYES CLOSED. NO ACUTE DISTRESS SHOWN. CALL LIGHT WITHIN REACH.
--- NOTE | 2020-07-06 04:17 | NUR ---
PT UNION ORGANIZER LIGHT, ASSISTED TO BSC, VOIDED ONLY. NOW SAFELY BACK IN BED, IV X1 INTACT, AFEBRILE. NO OTHER COMPLAINTS OR NEEDS AT THIS TIME. CALL LIGHT WITHIN REACH.
--- NOTE | 2020-07-06 06:45 | NUR ---
RECIEVED REPORT FROM MARIPOSA PAREKH. ASSUMED PT CARE.
--- NOTE | 2020-07-06 07:15 | NUR ---
PT A&OX4, ABLE TO MAKE NEEDS KNOWN. RESPIRATIONS EVEN/UNLABORED. SA02@97%RA. LS CLEAR THROUGHOUT. SR ON TELMETRY , 79. PT DENIES CP, SOB OR DISTRESS AT THIS TIME. ABDOMEN SOFT, NON-TENDER. LBM 8-8-20. BSX4 ACTIVE. RAC WITH 20G INFUSING, NS@125ML/HR AND PROTONIX GTT. NO S/S OF INFILTRATION OR INFECTION AT SITE. CALL LIGHT IN REACH. WILL MONITOR.
--- NOTE | 2020-07-06 08:50 | NUR ---
DR. BAUER AT [facility] FOR ASSESSMENT AND TO DISCUSS PLAN OF CARE, NEW ORDERS RECIEVED.
--- NOTE | 2020-07-06 09:20 | NUR ---
PT MEDICATED FOR H/A ORDERED PER PT REQUEST. CALL LIGHT IN REACH. WILL MONITOR.
--- NOTE | 2020-07-06 10:00 | NUR ---
COMPLETE BED BATH, LINEN CHANGE DONE. PT TOLERATED WELL.
[2020-07-06 10:46] LABS: HEMATOCRIT 22.4 % (37.0-47.0); IMMATURE GRANULOCYTES 0.3 % (0.0-5.0); MEAN CELL VOLUME 91.1 fL CALC (80.0-100.0); MEAN CORPUSCULAR HGB 28.5 pG CALC (26.0-32.0); MEAN CORPUSCULAR HGB CONC 31.3 g/dL CAL (32.0-36.0); NEUT# 4.51 thou/uL (2.00-7.15); RED BLOOD COUNT 2.46 mill/uL (4.20-5.60); RED CELL DISTRI WIDTH 17.1 % (11.5-15.5)
[2020-07-06 10:50] LABS: HEMOGLOBIN 7.1 g/dl (12.0-16.0)
[2020-07-06 11:17] LABS: ANION GAP 12 (6-22 (CALC)); BUN 34 mg/dL (8-23); BUN/CREATININE RATIO 37 (12-20 (CALC)); CARBON DIOXIDE 18 mmol/l (22-30); CHLORIDE 110 mmol/l (95-108); CREATININE 0.9 mg/dL (0.5-1.0); GFR 59 ML/MIN (>=60 (CALC)); GFR FOR AFR.AMER. > 60 ML/MIN (>=60 (CALC)); POTASSIUM 4.8 mmol/l (3.5-5.1); SODIUM 135 mmol/l (137-146)
--- NOTE | 2020-07-06 11:30 | NUR ---
DIETARY ON UNIT, LUNCH TRAY SET UP.
--- NOTE | 2020-07-06 12:45 | NUR ---
PT DAUGHTER ARRIVED AT BEDSIDE. PT ASSISTED TO BSC, VOIDED. THEN BACK TO BED.
--- NOTE | 2020-07-06 14:00 | NUR ---
daughter left bedside.
--- NOTE | 2020-07-06 16:05 | NUR ---
PRBC INFUSION COMPLETED. NO DISTRESS NOTED AT THIS TIME. CALL LIGHT IN REACH.
--- NOTE | 2020-07-06 17:50 | NUR ---
PT ASSISTED TO BSC, VOIDED 550ML
--- NOTE | 2020-07-06 18:04 | NUR ---
PT LEFT VIA STRETCHER WITH [employer].
--- NOTE | 2020-07-06 18:50 | NUR ---
PT ON BSC, HAD SMALL LOOSE BM, BLACK MIXED WITH URINE. PT ABLE TO WIPE HER SELF. NOW SAFELT BACK IN BED, NURSING ASSESSMENT PERFORMED. ON RA SATS GEATER THAN 95%. DOES BECOME SINUS TACH 120'S WITH EXERTION. BP 170'S SYSTOLIC. COMPLAINS OF MANLEY 8/, WILL MEDICATE. RAC IV INTACT, IV FLUIDS AND MEDICATION INFUSING PROPERLY. SELF REPOSITIONS. CALL LIGHT WITHIN REACH.
--- NOTE | 2020-07-06 19:17 | NUR ---
APRESOLINE PRN IV GIVEN FOR BP OF 170'S SYSTOLIC. FIORICET GIVEN WELL FOR COMPLAINTS OF HEADACHE 07/07. CALL LIGHT WITHIN REACH.
--- NOTE | 2020-07-06 19:39 | NUR ---
PT EPITAXIAL REACTOR TECHNICIAN LIGHT, REPORTS SHE IS HAVING TROUBLE BREATHING. PT'S O2 SAT IS 99% ON ROOM AIR, I PLACED HER ON 2 L/NC FOR SUPPORT, O2 NOW IS 100%. HEART RATE 107 BPM. PLACED HER IN HIGH BLAKELY'S, WILL CONTINUE TO MONITOR.
--- NOTE | 2020-07-06 20:27 | NUR ---
PT RETAIL ADMINISTRATIVE ASSISTANT LIGHT, ASSISTED TO BSC, VOIDED LARGE AMOUNT, NO BM. PT REPORTS SHE STILL FEELS OUT OF BREATH, PT SAFELY BACK IN BED, HIGH BLAKELY'S POSITION. O2 SAT IS 100%. ALSO DAUGHTER CALLED HERE, SHE PROVIDED PASSCODE. SHE WANTED TO KNOW WHY HER MOTHER WAS ON OXYGEN, HER BROTHER HAD JUST SPOKEN TO PATIENT AND PATIENT NOTIFIED SON SHE WAS ON O2 THAT IS WHY DAUGHTER CALLED, I UPDATED DAUGHTER, I ASKED DAUGHTER IF PATIENT HAS HISTORY OF ANXIETY, DAUGHTER DID REPORT PATIENT DOES BUT DOES NOT TAKE ANY MEDICATION FOR IT. LET HER KNOW I WILL NOTIFY HER FOR NEW UPDATES.
--- NOTE | 2020-07-06 21:51 | NUR ---
PT SOIL BIOLOGY TEACHER LIGHT, ASKS IF I CAN PLACE HOB DOWN. EYE DROPS PROVIDED, HOB 30 DEGREES NOW. PT IS SR ON TELE, HR 70'S-80'S, 100% ON 2 L/MIN O2. BREATHING IS WNL, PT REPORTS SHE PROBABLY GOT OUT OF BREATH FROM GETTING UP TO THE BATHROOM, CLEANING HERSELF, REPOSITIONING. PT IN NO ACUTE DISTRESS NOW. CALL LIGHT WITHIN REACH.
[2020-07-07] VITALS (14 sets, daily range): BP systolic 108–151; BP diastolic 46–83
--- NOTE | 2020-07-07 01:02 | NUR ---
PT ASSISTED TO BSC. VOIDS. NOW BACK IN BED, REQUESTS TO TAKE HER O2 OFF, SHE SATS 100%. CALL LIGHT WITHIN REACH
--- NOTE | 2020-07-07 05:14 | NUR ---
PT AWAKENS EASILY WITH NOISE. NO ACUTE DISTRESS SHOWN. NO NEEDS AT THIS TIME. CALL LIGHT WITHIN REACH.
--- NOTE | 2020-07-07 05:33 | NUR ---
PT ASSISTED TO BSC, VOIDED. SAFELY BACK IN BED. CALL LIGHT WITHIN REACH.
[2020-07-07 06:39] LABS: HEMATOCRIT 23.6 % (37.0-47.0); HEMOGLOBIN 7.4 g/dl (12.0-16.0); IMMATURE GRANULOCYTES 0.9 % (0.0-5.0); MEAN CELL VOLUME 89.4 fL CALC (80.0-100.0); MEAN CORPUSCULAR HGB CONC 31.4 g/dL CAL (32.0-36.0); NEUT# 3.56 thou/uL (2.00-7.15); RED BLOOD COUNT 2.64 mill/uL (4.20-5.60); RED CELL DISTRI WIDTH 17.2 % (11.5-15.5)
[2020-07-07 06:53] LABS: ANION GAP 9 (6-22 (CALC)); BUN 29 mg/dL (8-23); BUN/CREATININE RATIO 33 (12-20 (CALC)); CARBON DIOXIDE 19 mmol/l (22-30); CHLORIDE 110 mmol/l (95-108); CREATININE 0.9 mg/dL (0.5-1.0); GFR 59 ML/MIN (>=60 (CALC)); GFR FOR AFR.AMER. > 60 ML/MIN (>=60 (CALC)); POTASSIUM 4.4 mmol/l (3.5-5.1); SODIUM 134 mmol/l (137-146)
--- NOTE | 2020-07-07 08:45 | NUR ---
ASSESSMENT COMPLETED. NO DSITRESS NOTED. MD AT BEDSIDE. IV SITE INFILTRATED AND REMOVED WITH CATHETER TIP INTACT. NEW IV STARTED TO RFA X2 ATTEMPTS. PT. ASSISTED ON AND OFF OF BSC AND BACK INTO BED. C/O MANLEY WILL MEDICATE SHORTLY.
--- NOTE | 2020-07-07 10:49 | NUR ---
UNIT OF PRBC'S STARTED;VERIFIED BY 2 NURSES PER PROTOCAL. REVIEWED S/S OF REACTIONS; VERBALIZES UNDERSTANIDNG. THIS ENGINEERING TEST MECHANIC IN AT BEDSIDE FOR INITIAL 15 MINUTES.
--- NOTE | 2020-07-07 13:15 | NUR ---
PRBC'S FINISHED AND IV SITE FLUSHED AND ORDERED NS RESTARTED.
--- NOTE | 2020-07-07 15:00 | NUR ---
RESTING IN BED WITH NO DISTRESS NOTED; DENIES NEEDS. CALL LIGHT IS IN REAH.
--- NOTE | 2020-07-07 16:55 | NUR ---
SPOKE WITH DR. BOWMAN AND NOTIFIED HIM OF CONSULT ON PT. NEW ORDERS RECEIVED FOR NPO DIET AFTER MIDNIGHT AND HE WILL SEE PT. IN AM.
--- NOTE | 2020-07-07 17:16 | NUR ---
UPDATED PT. ON DIET AFTER MIDNIGHT AND OF SURGEON TO SEE HER IN AM; VERBALIZES UNDERSTANDING. ASSISTED TO AND FROM BSC. PT. C/O MANLEY AND MEDICATED WITH ORDERED PRN FIORCET; WILL REASSESS.
--- NOTE | 2020-07-07 19:20 | NUR ---
awake. no obvious bleeding @ present. associate professor of theology shows sinus rhythm ivcd. #20 rfa ns infusing @ 100cchr. po fluids taken well. assisted to bsc. hanny well. fall & air/contact precautions cont.
--- NOTE | 2020-07-07 22:00 | NUR ---
up to bsc. hanny well. admits to stiffness d/t arthritis.
[2020-07-08] VITALS (16 sets, daily range): BP systolic 96–159; BP diastolic 44–89
--- NOTE | 2020-07-08 00:01 | NUR ---
eyes closed. no distress. classroom monitor shows sinus rhythm ivcd hr 84.
--- NOTE | 2020-07-08 02:00 | NUR ---
eyes closed. nad. no active bleeding. ivf infusing well.
--- NOTE | 2020-07-08 04:00 | NUR ---
eyes closed. no distress. monitoring tech shows sinus rhythm ivcd hr 76.
--- NOTE | 2020-07-08 05:15 | NUR ---
lab here. blood drawn.
[2020-07-08 05:47] LABS: HEMATOCRIT 24.4 % (37.0-47.0); HEMOGLOBIN 7.5 g/dl (12.0-16.0); MEAN CELL VOLUME 89.1 fL CALC (80.0-100.0); MEAN CORPUSCULAR HGB 27.4 pG CALC (26.0-32.0); MEAN CORPUSCULAR HGB CONC 30.7 g/dL CAL (32.0-36.0); RED BLOOD COUNT 2.74 mill/uL (4.20-5.60); RED CELL DISTRI WIDTH 16.2 % (11.5-15.5)
--- NOTE | 2020-07-08 05:56 | NUR ---
eyes closed. no distress. ivf infusing well.
--- NOTE | 2020-07-08 08:20 | NUR ---
ASSESSMENT COMPLETED. NO DISTRESS NOTED. C/O MANLEY; ICE PACK APPLIED PT. IS NPO AT THIS TIME. IV SITE PATENT AND ORDERED IVF INFUSING WELL. ENCOURAGED TO CALL FOR ANY NEEDS. CALL LIGHT IS IN REACH.
--- NOTE | 2020-07-08 09:00 | NUR ---
SPOKE WITH DAUGHTER ON TELEPHONE AND VOICES SHE WANTS TO BE NOTIFIED OF ANY UPDATES ON PT. WILL PLACE NAME AND PHONE NUMBER ON TOP OF CHART WITH NOTE. UPDATED ON NASAL SWAB NEEDED WELL PT. GOING OWN FOR AN EGD THIS AM.
--- NOTE | 2020-07-08 09:21 | NUR ---
UPDATED PT. ON POC AND OF EGD THIS AM WELL SWAB; PT. IN AGREEMENT.
--- NOTE | 2020-07-08 10:55 | NUR ---
PT. OFF UNIT TO OR VIA STRETCHER; CALLED AND NOTIFIED DAUGHTER WELL NEGATIVE SWAB.
--- NOTE | 2020-07-08 12:25 | NUR ---
RECEIVED PT. FROM OR. PT. STABLE. VSS. NO DISTRESS NOTED. C/O MANLEY; WILL MEDICATE SHORTLY WITH PRN FIORCET.
--- NOTE | 2020-07-08 15:40 | NUR ---
PT. ASSISTED TO BSC AND PROVIDED WITH BATH AND THEN ASSISTED UP TO CHAIR. DENIES FURTHER NEEDS. VSS. REPORTS FEELING BETTER. CALL LIGHT IS IN REACH.
--- NOTE | 2020-07-08 18:35 | NUR ---
C/O MANLEY; MEDICATED WITH ORDERED PRN FIORCET;
--- NOTE | 2020-07-08 19:30 | NUR ---
awake. nad. no active bleeding. cardiac catheterization technologist shows sinus rhythm hr 90. #20 rac ns infusing @ 100cchr. po fluids taken fair. assisted to bsc. hanny fair. fall precautions cont.
--- NOTE | 2020-07-08 22:00 | NUR ---
eyes closed. nad. monitoring tech shows sinus rhythm hr 84.
[2020-07-09] VITALS (25 sets, daily range): BP systolic 105–157; BP diastolic 57–91
--- NOTE | 2020-07-09 00:01 | NUR ---
eyes closed. no distress. color television console monitor shows sinus rhythm hr 80
--- NOTE | 2020-07-09 02:00 | NUR ---
resting quietly. resps even & unlabored. ivf infusing well.
--- NOTE | 2020-07-09 05:30 | NUR ---
lab here. blood drawn.
[2020-07-09 06:02] LABS: HEMATOCRIT 20.5 % (37.0-47.0); MEAN CELL VOLUME 89.1 fL CALC (80.0-100.0); MEAN CORPUSCULAR HGB 27.8 pG CALC (26.0-32.0); MEAN CORPUSCULAR HGB CONC 31.2 g/dL CAL (32.0-36.0); RED BLOOD COUNT 2.3 mill/uL (4.20-5.60); RED CELL DISTRI WIDTH 16.2 % (11.5-15.5)
[2020-07-09 06:26] LABS: HEMOGLOBIN 6.4 g/dl (12.0-16.0)
--- NOTE | 2020-07-09 07:30 | NUR ---
ASSESSMENT IS COMPLETED: PT IS VERY TIRED THIS AM. IV SITE IS FREE FROM REDNESS OR EDEMA. HR IS ERG,PULSES ARE STRONG X4, ABD IS SOFT WITH ACTIVE BS. BREATH SOUNDS ARE CLEAR, BILATERALLY. PT IS ON RA. CONTINUE TO OSEBRVE AND MONITOR.
--- NOTE | 2020-07-09 08:15 | NUR ---
Dr Ring in to visit with pt.
--- NOTE | 2020-07-09 11:03 | NUR ---
1ST UNIT OF BLOOD BEING TRANSFUSED PT IS TOLERATING WELL.
--- NOTE | 2020-07-09 11:40 | NUR ---
SPOKE WITH THE DAUGHTER (CAREGIVER) RE: PT/ VERY CONCERNED. STATING" MY BROTHER SPOKE TO HER AND SHE WASN'T SOUNDING RIGHT" EXPLAINED THAT PT WAS ON THE PHONE WHILE I STARTED THE BLOOD AND TOLD THEM WHAT WAS GIVEN TO HER THIS AM. REQUESTED THAT WE CALL HER IF ANY CHANGES. REASSURED HER THAT WE WOULD.
--- NOTE | 2020-07-09 12:13 | NUR ---
PT C/O HEADACHE AND DIZZINESS. GAVE PAIN MEDICATION. PT STATED" EVERYTIME MY BLOOD IS LOW , I GET THE HEADACHE AND DIZZINESS."
--- NOTE | 2020-07-09 12:30 | NUR ---
PT HAS BEEN RELAXING IN BED WITH NO DISTRESS NOTED. C/O ARTHRITIC PAIN. WELL DIZZINESS .
--- NOTE | 2020-07-09 13:02 | NUR ---
ASSISTED PT TO BSC. C/O HEADACHE AND DIZZINESS CONTIUES MEDICATION WAS GIVEN .
--- NOTE | 2020-07-09 13:50 | NUR ---
PT RECEIVING THE 2ND UNIT OF BLOOD TOLERATED WELL ON THE 1ST ONE.
--- NOTE | 2020-07-09 14:00 | NUR ---
PT ATTEMPTS TO NAP , INTERUPTED FROM VS. NO DISTRESS NOTED.
--- NOTE | 2020-07-09 18:21 | NUR ---
PT'S SON HERE TO VISIT WITH PT.
--- NOTE | 2020-07-09 19:15 | NUR ---
PT ASBESTOS SHINGLE INSPECTOR LIGHT, REQUESTS FOR HEAD TO BE REPOSITIONED. HOB ELEVATED AND PILLOW REPOSITIONED. NO ACUTE DISTRESS SHOWN. CALL LIGHT WITHIN REACH.
--- NOTE | 2020-07-09 19:49 | NUR ---
PATIENT IS AWAKE, HOB 30 DEGREES. ALERT AND ORIENTED X4, IS HARD OF HEARING. ON RA, SATS 99%, SOB WITH EXERTION NOTED. SR ON TELE, HR 80'S-90'S. BP 140'S SYSTOLIC. RAC 20 G IV INTACT, NS AT 100 ML/HR. POC DICUSSED, PATIENT UNDERSTANDS AND AGREES. SELF REPOSITIONS. DOES NOT COMPLAIN OF PAIN OR NO NEEDS AT THIS TIME. CALL LIGHT WITHIN REACH.
--- NOTE | 2020-07-09 21:45 | NUR ---
PATIENT ABLE TO SWALLOW HER BEDTIME MEDICATION. PT COMPLAINS OF LEFT ARM IN PAIN, BLOOD PRESSURE CUFF REMOVED FROM THAT ARM, ASSITED TO REPOSTION ON HER RIGHT SIDE, WILL PLACE PILLOWS ON HER BACK. NO OTHER COMPLAINTS OR NEEDS AT THIS TIME. CALL LIGHT WITHIN REACH.
--- NOTE | 2020-07-09 21:56 | NUR ---
ICE PACK PLACED AROUND ARM AREA WELL. PT HAS A BRUISED AREA, AND A BUMP AT INJECTION SITE ON LUE. ARM ELEVATED WITH PILLOW WELL.
--- NOTE | 2020-07-09 23:14 | NUR ---
PT TENTERING MACHINE FEEDER LIGHT, IV LEAKING ON RAC. NEW IV ACCESS ON RFA 22 G, IV FLUIDS RESTARTED. NO OTHER COMPLAINTS OR NEEDS AT THIS TIME.
[2020-07-10] VITALS (12 sets, daily range): BP systolic 120–162; BP diastolic 55–89
--- NOTE | 2020-07-10 01:16 | NUR ---
PATIENT COMPLAINS OF NOT BEING ABLE TO SLEEP FROM PAIN ON RUE, PILLOWS HAVE BEEN PLACED WELL ICE PROVIDED AT AREA, PT REQUESTS TO HAVE MEDICATION FOR SLEEP. CALLED AND SPOKE TO DR SALMON, NEW ORDER RECEIVED. SENT TO [facility].
--- NOTE | 2020-07-10 01:32 | NUR ---
LAURENTL X1 GIVEN, PT EDUCATED ON MED. WILL CONTINUE TO MONITOR. CALL LIGHT WITHIN REACH.
--- NOTE | 2020-07-10 03:02 | NUR ---
PT MASONRY INSTRUCTOR LIGHT, COMPLAINS OF PAIN ON LEFT ELBOW, KNEES. CALLED AND SPOKE TO DR SALMON, NEW ORDER RECEIVED. PT GIVEN PAIN MEDICATION, WILL CONTINUE TO MONITOR.
--- NOTE | 2020-07-10 03:28 | NUR ---
PT REWRITER LIGHT, ASSISTED TO BSC. HAD DIFFICULTY GETTING UP DUE TO HER LEFT ELBOW PAIN. NOW BACK IN BED SAFELY. CALL LIGHT WITHIN REACH.
--- NOTE | 2020-07-10 04:55 | NUR ---
PT ORGANIC LAB WORKER LIGHT, REPORTS SHE IS HOT, SHE WOULD LIKE A BLANKET TAKEN OFF. BLANKET HAS BEEN TAKEN OFF. CALL LIGHT WITHIN REACH.
--- NOTE | 2020-07-10 05:15 | NUR ---
COMMUNICATIONS PROGRAMMER IN ROOM FOR AM LABS.
[2020-07-10 06:03] LABS: HEMATOCRIT 25.9 % (37.0-47.0); HEMOGLOBIN 8.2 g/dl (12.0-16.0); MEAN CELL VOLUME 88.7 fL CALC (80.0-100.0); MEAN CORPUSCULAR HGB 28.1 pG CALC (26.0-32.0); MEAN CORPUSCULAR HGB CONC 31.7 g/dL CAL (32.0-36.0); RED BLOOD COUNT 2.92 mill/uL (4.20-5.60); RED CELL DISTRI WIDTH 15.6 % (11.5-15.5)
--- NOTE | 2020-07-10 06:39 | NUR ---
PATIENT ABLE TO SWALLOW HER AM MEDS. PAIN MEDI GIVEN FOR LEFT ELBOW PAIN RATE OF 9/10. NO OTHER NEEDS AT THIS TIME. CALL LIGHT WITHIN REACH.
[2020-07-10 06:47] LABS: ANION GAP 10 (6-22 (CALC)); BUN 24 mg/dL (8-23); BUN/CREATININE RATIO 31 (12-20 (CALC)); CARBON DIOXIDE 18 mmol/l (22-30); CHLORIDE 108 mmol/l (95-108); CREATININE 0.8 mg/dL (0.5-1.0); GFR > 60 ML/MIN (>=60 (CALC)); GFR FOR AFR.AMER. > 60 ML/MIN (>=60 (CALC)); POTASSIUM 3.8 mmol/l (3.5-5.1); SODIUM 132 mmol/l (137-146)
--- NOTE | 2020-07-10 08:45 | NUR ---
PATIENT ALERT, SITTING UPRIGHT IN BED, STILL COMPLAINING OF PAIN TO LEFT ARM, MEDICATED AT 0645 WITH PAIN MEDS, CONTINUING TO MONITOR PAIN, ROUTINE ASSESSMENT COMPLETED AT THIS TIME.
--- NOTE | 2020-07-10 10:30 | NUR ---
PATIENT VISITING WITH DAUGHTER AT BEDSIDE, STILL COMPLAINING OF PAIN TO LEFT ARM, ICE PACK APPLIED AT THIS TIME, VITAL SIGNS STABLE, NO OTHER COMPLAINTS OR CONCERNS AT THIS TIME.
--- NOTE | 2020-07-10 12:30 | NUR ---
PATIENT SITTING IN CHAIR AT BEDSIDE, REPORTS LEFT ARM PAIN SUBSIDING, NOW COMPLAINING OF HEADACHE, WILL ADMINISTER MEDS ORDERED AND CONTIUE TO MONITOR
--- NOTE | 2020-07-10 15:40 | NUR ---
SOLUMEDROL ADMINSITERED FOR PAIN TO RUE.
--- NOTE | 2020-07-10 16:30 | NUR ---
PT REPORTS THAT ULTRAM AND STEROID IMPROVED PAIN; CURRENTLY A 06/06. DR. FISHMAN CALLED TO CHECK ON PT; PT REQUESTS TO STAY ANOTHER NIGHT; AGREED.
--- NOTE | 2020-07-10 18:00 | NUR ---
UP TO BSC FOR HARD DARK BROWN BM; BACK INTO BED. CONTINUES TO C/O MODERATE PAIN TO LEFT SHOULDER AND ELBOW; HEAT PACKS OFFERED AND ARM ELEVATED ON PILLOWS. NO OTHER REQUESTS OR CONCERNS. CALL LIGHT WITHIN REACH.
--- NOTE | 2020-07-10 19:15 | NUR ---
PATIENT AWAKENS EASILY WHEN SPOKEN TO. PATIENT RESTS CALMLY WHEN APPROACHED, WHEN SHE AWAKENS SHE BEGINS TO MOAN IN PAIN. PATIEN REPORTS SHE FEELS BETTERT. PATIENT IS ALERT AND ORIENTED X4. SATS 99% ON R, NO SOB MNOTED AT THIS TIME. BP 140'S SYTOLIC. SR ON TELEMETRY, HR 80'S. NURSE ASSESSMENT PERFORMED. LEFT ARM IS ELEVATED WITH PILLOW. SHE HAS A DIFFICULT TIME TO EXCELLENCE MANAGER WITH LEFT ARM BECAUSE OF PAIN. RFA IV INTACT, SALINE LOCKED AT THIS TIME. PT GETS A PHONE CALL FOR WHICH SHE ANSWERS ON HER BLUETOOTH EARPHONES. NO NEEDS AT THIS TIME. CALL LIGHT WITHIN REACH.
--- NOTE | 2020-07-10 21:17 | NUR ---
PT ABLE TO SWALLOW HER BEDTIME MEDS, PAIN MEDICATION PROVIDED PER REQUEST FOR LEFT ELBOW PAIN, SHE RATE 7/10. RESTS IT ON PILLOW. L-ARM COLOR IS ACYANOTIC, RADIAL PULSE IS STRONG, ARM IS DRY/WARM. NO OTHER NEEDS ST THIS TIME, CALL LIGHT WITHIN REACH.
[2020-07-11 00:04] VITALS: BP 129/70
--- NOTE | 2020-07-11 02:53 | NUR ---
PT WAS WASHED UP BY CERTIFIED APPLIANCE SERVICE TECHNICIAN, ASSISTED TO BSC. NO ACUTE DISTRESS SHOWN. NOW RESTS IN BED. ALL LIGHT WITHIN REACH. ALL VITALS WNL.
--- NOTE | 2020-07-11 04:53 | NUR ---
LAB TACH IN ROOM TO DRAW BLOOD.
[2020-07-11 05:34] LABS: HEMATOCRIT 25.1 % (37.0-47.0); MEAN CELL VOLUME 89.6 fL CALC (80.0-100.0); MEAN CORPUSCULAR HGB 28.6 pG CALC (26.0-32.0); MEAN CORPUSCULAR HGB CONC 31.9 g/dL CAL (32.0-36.0); RED BLOOD COUNT 2.8 mill/uL (4.20-5.60); RED CELL DISTRI WIDTH 15.8 % (11.5-15.5)
--- NOTE | 2020-07-11 05:38 | NUR ---
pain medication given per request, patient also assisted to bsc, she does not use left arm due to pain. now safely bck in bed. no other needs or complaints. call light within reach.
[2020-07-11] MEDS ORDERED: PROTONIX40 M2 PO (07:59)
[2020-07-11] MEDS ORDERED: SUCRALFATE1 GM/10 ML PO (07:59)
[2020-07-11] MEDS ORDERED: VITAMIN B-121000 MCG PO (08:00)
[2020-07-11] MEDS ORDERED: FOLIC ACID1 M1 PO (08:00)
[2020-07-11] MEDS ORDERED: FERR SULFATE325 MG PO (08:00)
[2020-07-11] MEDS ORDERED: ULTRAM50 M1 PO (08:01)
[2020-07-11] MEDS ORDERED: MEDDOSEPAK PO ×2 (08:01)
[2020-07-11 08:15] VITALS: BP 132/77
--- NOTE | 2020-07-11 08:35 | NUR ---
PATIENT IN BED, SEMI-FOWLERS, ALERT. REPORTS STILL WITH LEFT ARM PAIN NOW RADIATING DOWN TO HAND AND FINGERS, SHARP. WILL ADVISE MD DURING ROUNDS. DENIES ANY OTHER CONERNS AT THIS TIME. VITAL SIGNS STABLE. ROUTINE ASSESSMENT COMPLETED AT THIS TIME. IV CLEAN DRY INTACT.
[2020-07-11 10:30] VITALS: BP 133/73
--- NOTE | 2020-07-11 11:20 | NUR ---
PATIENT IV DISCONTINUED AT 1030 WITHOUT COMPLICATIONS. PATIENT ASSISTED WITH DRESSING VIA STANDY BY AND MINIMAL ASSISTANCE. VITAL SIGNS STABLE. PATIENT EDUCATED ON DISCHARGE INSTRUCTIONS WITH NO QUESTIONS OR CONCERNS. DISCHARGED TO HOME AT THIS TIME. TRANSPORTED VIA WHEELCHAIR.
== END 2020-07-11 11:15 | disposition home or self-care (01) | DRG 811 ==
LOC: ED 20:40 → ED-I 22:05 → ED 22:58 → ICU 22:59
PROVIDERS: Emergency Medicine; Internal Medicine; ADMIT Internal Medicine; ATTEND Internal Medicine
PROC: 30233N1 Transfusion of Nonautologous Red Blood Cells into Peripheral Vein, Percutaneous Approach (ICD-10-PCS; 2020-07-04)
PROC: 30233N1 Transfusion of Nonautologous Red Blood Cells into Peripheral Vein, Percutaneous Approach (ICD-10-PCS; 2020-07-05)
PROC: 30233N1 Transfusion of Nonautologous Red Blood Cells into Peripheral Vein, Percutaneous Approach (ICD-10-PCS; 2020-07-06)
PROC: 30233N1 Transfusion of Nonautologous Red Blood Cells into Peripheral Vein, Percutaneous Approach (ICD-10-PCS; 2020-07-07)
PROC: 0DJ08ZZ Inspection of Upper Intestinal Tract, Via Natural or Artificial Opening Endoscopic (ICD-10-PCS; principal; 2020-07-08)
PROC: 30233N1 Transfusion of Nonautologous Red Blood Cells into Peripheral Vein, Percutaneous Approach (ICD-10-PCS; 2020-07-09)
PROC: 30233N1 Transfusion of Nonautologous Red Blood Cells into Peripheral Vein, Percutaneous Approach (ICD-10-PCS; 2020-07-09)
DX: D62 Acute posthemorrhagic anemia (principal); K25.4 Chronic or unspecified gastric ulcer with hemorrhage; K29.61 Other gastritis with bleeding; N17.9 Acute kidney failure, unspecified; D61.818 Other pancytopenia; D46.9 Myelodysplastic syndrome, unspecified; I10 Essential (primary) hypertension; K57.90 Diverticulosis of intestine, part unspecified, without perforation or abscess without bleeding; E78.5 Hyperlipidemia, unspecified; I25.10 Atherosclerotic heart disease of native coronary artery without angina pectoris; M25.522 Pain in left elbow; E03.9 Hypothyroidism, unspecified; G43.909 Migraine, unspecified, not intractable, without status migrainosus; Z90.49 Acquired absence of other specified parts of digestive tract; Z87.891 Personal history of nicotine dependence; Z20.828 Contact with and (suspected) exposure to other viral communicable diseases
CPT/HCPCS: J0885; J1756; J3420; P9016; S0164

== ENCOUNTER 2020-08-11 21:50 | Observation (INO) | payer MEDICARE, MEDICAID ==
[~2020-08-11] VITALS: Ht 154.9 cm; Wt 52.7 kg
[~2020-08-11 21:50] MED LIST changes: +FOLIC ACID1 M1 PO; +MEDDOSEPAK PO; +SUCRALFATE1 GM/10 ML PO; +VITAMIN B-121000 MCG PO
--- NOTE | 2020-08-11 21:55 | NUR ---
PT WHEELED TO ROOM 14 AND TRIAGED.
[2020-08-11 22:55] LABS: HEMATOCRIT 20.7 % (37.0-47.0); IMMATURE GRANULOCYTES 0.8 % (0.0-5.0); MEAN CORPUSCULAR HGB CONC 30.4 g/dL CAL (32.0-36.0); NEUT# 2.96 thou/uL (2.00-7.15); RED BLOOD COUNT 2.17 mill/uL (4.20-5.60); RED CELL DISTRI WIDTH 17.2 % (11.5-15.5)
[2020-08-11 22:57] LABS: MEAN CELL VOLUME 95.4 fL CALC (80.0-100.0)
[2020-08-11 22:58] LABS: HEMOGLOBIN 6.3 g/dl (12.0-16.0)
--- NOTE | 2020-08-11 23:10 | NUR ---
PT RESTING. NAD. AWAITING RESULTS.
[2020-08-11 23:39] LABS: ALBUMIN 3.8 g/dL (3.2-5.0); BILIRUBIN, TOTAL 0.2 mg/dL (0.0-1.4); CREATININE 1.4 mg/dL (0.5-1.0); TOTAL PROTEIN 6.9 g/dL (6.3-8.2)
[2020-08-12] VITALS (10 sets, daily range): BP systolic 104–143; BP diastolic 46–73
--- NOTE | 2020-08-12 00:05 | NUR ---
PT RESTING. ADVISED OF ADMISSION. DAUGHTER TO HOUSE. CONSENT SIGNED FOR TRANSFUSION.
--- NOTE | 2020-08-12 00:47 | NUR ---
REPORT TO SABAS NURSE/MED-SURG.
--- NOTE | 2020-08-12 01:17 | NUR ---
TO FLOOR VIA STRETCHER/BLOOD INFUSING.
--- NOTE | 2020-08-12 01:21 | NUR ---
PT ARRIVED TO THE FLOOR VIA STRETCHER ACCOMPANIED BY ED STAFF. PT TRANSFERED FROM STRETCHER TO THE BED X4 ASSIST. PT IS ALERT AND ORIENTED, RESPIRATIONS EVEN AND UNLABORED ON RA, LUNGS SOUND CLEAR. ASSESSMENT COMPLETED AND VS OBTAINED. PEDAL PULSES ARE STONG. PT REPORTS HAVING A HEAD ACHE, PT TO BE MEDICATED PER EMAR ORDERS. PT ORIENTED TO ROOM AND CALL LACEY SYSTEM. # 20 RW PATENT AND APPEARS HEALTHY. SAFETY PRECAUTIONS IN PLACE. WILL CONTINUE TO MONITOR
--- NOTE | 2020-08-12 04:32 | NUR ---
PT RESTING IN BED, ALERT AND ORIENTED. BLOOD TRANFUSSING PT TOLERATING WELL. SAFETY PRECAUTIONS IN PLACE. WILL CONTINUE TO MONITOR.
--- NOTE | 2020-08-12 09:00 | NUR ---
PT SEEN AT REST IN THE BED, ALERT AND ORIENTED X 3. SECOND UNIT OF BLOOD HAS FINISHED, AWAITING RECHECK BLOOD DRAW. NO COMPLAINT OF SHORTNESS OF BREATH, NO EVIDENCE OF DISTRESS.
--- NOTE | 2020-08-12 09:14 | NUR ---
PT note Patient is screened for intervention and may benefit from PT if medical agrees
[2020-08-12 10:05] LABS: HEMATOCRIT 29.3 % (37.0-47.0); HEMOGLOBIN 8.9 g/dl (12.0-16.0)
--- NOTE | 2020-08-12 13:06 | NUR ---
PT HAS BEEN DISCHARGED TO HOME. PT VERBALIZED UNDERSTANDING OF DC INSTRUCTIONS, TAKEN BY WHEELCHAIR TO VEHICLE.
== END 2020-08-12 12:35 | disposition home or self-care (01) ==
LOC: ED 21:50 → ED-I 23:40 → ED 23:58 → MS2 23:59
PROVIDERS: Family Medicine; Nurse Practitioner Family; ADMIT Internal Medicine; ATTEND Internal Medicine
PROC: 30233N1 Transfusion of Nonautologous Red Blood Cells into Peripheral Vein, Percutaneous Approach (ICD-10-PCS; principal; 2020-08-12)
PROC: 30233N1 Transfusion of Nonautologous Red Blood Cells into Peripheral Vein, Percutaneous Approach (ICD-10-PCS; 2020-08-12)
DX: D46.9 Myelodysplastic syndrome, unspecified (principal); I12.9 Hypertensive chronic kidney disease with stage 1 through stage 4 chronic kidney disease, or unspecified chronic kidney disease; N18.3 Chronic kidney disease, stage 3 (moderate); E03.9 Hypothyroidism, unspecified; E78.5 Hyperlipidemia, unspecified; I25.10 Atherosclerotic heart disease of native coronary artery without angina pectoris; G43.909 Migraine, unspecified, not intractable, without status migrainosus; Z87.891 Personal history of nicotine dependence; Z87.11 Personal history of peptic ulcer disease; Z20.828 Contact with and (suspected) exposure to other viral communicable diseases
CPT/HCPCS: G0378; P9016

== ENCOUNTER 2020-09-19 12:52 | Emergency (ER) | payer MEDICARE, MEDICAID ==
[~2020-09-19] VITALS: Ht 154.9 cm; Wt 50.0 kg
[2020-09-19 14:26] LABS: IMMATURE GRANULOCYTES 0.5 % (0.0-5.0); MEAN CELL VOLUME 90.9 fL CALC (80.0-100.0); MEAN CORPUSCULAR HGB 28.2 pG CALC (26.0-32.0); NEUT# 2.86 thou/uL (2.00-7.15); RED BLOOD COUNT 3.19 mill/uL (4.20-5.60)
[2020-09-19 14:58] LABS: ACT PARTIAL THROMBO TIME 32.5 SECONDS (20.0-32.5); INTERNATIONAL NORMALIZED RATIO 1.2 RATIO (0.7-1.3); PROTHROMBIN TIME 12.1 SECONDS (9.0-12.5)
[2020-09-19 15:05] LABS: ALBUMIN 4.2 g/dL (3.2-5.0); CREATININE 1.2 mg/dL (0.5-1.0); POTASSIUM 4.5 mmol/l (3.5-5.1); TOTAL PROTEIN 8.1 g/dL (6.3-8.2)
[2020-09-19 15:07] LABS: BILIRUBIN, TOTAL 0.6 mg/dL (0.0-1.4)
[2020-09-19] MEDS ORDERED: ULTRAM50 MG PO (15:49)
[2020-09-19 15:56] VITALS: BP 174/92
== END 2020-09-19 15:57 | disposition home or self-care (01) ==
LOC: ED 12:52
DX: G43.909 Migraine, unspecified, not intractable, without status migrainosus (principal); I10 Essential (primary) hypertension; D46.9 Myelodysplastic syndrome, unspecified; E03.9 Hypothyroidism, unspecified; E78.5 Hyperlipidemia, unspecified; Z87.11 Personal history of peptic ulcer disease

== ENCOUNTER 2020-11-11 13:48 | Emergency (ER) | payer MEDICARE, MEDICAID ==
[~2020-11-11] VITALS: Ht 154.9 cm; Wt 52.0 kg
[~2020-11-11 13:48] MED LIST changes: +ULTRAM50 MG PO
[2020-11-11] MEDS ORDERED: TRAVOPROST0.0041 OU (15:04)
[2020-11-11] MEDS ORDERED: ATORVASTATIN CA40 MG PO (15:04)
[2020-11-11] MEDS ORDERED: PROAIR HFA108 MCG/AC IN (15:05)
[2020-11-11] MEDS ORDERED: CEFDINIR300 MG PO (15:05)
[2020-11-11] MEDS ORDERED: FLONASE AL50 MCG/ACT (15:06)
[2020-11-11] MEDS ORDERED: TRAZODONE50 MG PO (15:10)
[2020-11-11] MEDS ORDERED: SOD CHLORIDE1 G2 PO (15:11)
[2020-11-11] MEDS ORDERED: TOPIRAMATE25 MG PO (15:11)
[2020-11-11] MEDS ORDERED: FIORICET 50-3001 CAP PO (15:12)
[2020-11-11] MEDS ORDERED: FUROSEMIDE20 MG PO (15:13)
[2020-11-11 15:24] LABS: HEMATOCRIT 26.6 % (37.0-47.0); HEMOGLOBIN 8.4 g/dl (12.0-16.0); IMMATURE GRANULOCYTES 0.8 % (0.0-5.0); MEAN CELL VOLUME 88.7 fL CALC (80.0-100.0); MEAN CORPUSCULAR HGB CONC 31.6 g/dL CAL (32.0-36.0); NEUT# 3.13 thou/uL (2.00-7.15); RED CELL DISTRI WIDTH 17.2 % (11.5-15.5)
[2020-11-11 15:35] LABS: CREATININE 1.6 mg/dL (0.5-1.0); MAGNESIUM 1.6 mg/dL (1.6-2.3); POTASSIUM 4.6 mmol/l (3.5-5.1)
[2020-11-11 16:53] VITALS: BP 127/61
== END 2020-11-11 16:53 | disposition home or self-care (01) ==
LOC: ED 13:48
DX: M19.011 Primary osteoarthritis, right shoulder (principal); I10 Essential (primary) hypertension; D46.9 Myelodysplastic syndrome, unspecified; E03.9 Hypothyroidism, unspecified; E78.5 Hyperlipidemia, unspecified

== ENCOUNTER 2020-11-29 19:15 | Emergency (ER) | payer MEDICARE, MEDICAID ==
[~2020-11-29] VITALS: Ht 154.9 cm; Wt 53.5 kg
[~2020-11-29 19:15] MED LIST changes: +ATORVASTATIN CA40 MG PO; +CEFDINIR300 MG PO; +FIORICET 50-3001 CAP PO; +FLONASE AL50 MCG/ACT; +PROAIR HFA108 MCG/AC IN; +SOD CHLORIDE1 G2 PO; +TOPIRAMATE25 MG PO; +TRAVOPROST0.0041 OU; +TRAZODONE50 MG PO
[2020-11-29] MEDS ORDERED: SOD CHLORIDE1 G2 PO (20:02)
[2020-11-29] MEDS ORDERED: TOPAMAX25 MG PO (20:02)
[2020-11-29] MEDS ORDERED: ASPIRIN CHEWABL81 MG PO (20:04)
[2020-11-29] MEDS ORDERED: BACLOFEN10 MG PO (20:05)
[2020-11-29] MEDS ORDERED: COLCHICINE0.6 M2 PO (20:06)
[2020-11-29] MEDS ORDERED: MECLIZINE25 MG PO (20:07)
[2020-11-29] MEDS ORDERED: ULTRAM50 M1 PO (20:08)
[2020-11-29] MEDS ORDERED: PREDNISONE10 MG PO (20:08)
[2020-11-29] MEDS ORDERED: DIOVAN160 MG PO (20:19)
[2020-11-29 20:25] LABS: HEMATOCRIT 25.1 % (37.0-47.0); HEMOGLOBIN 7.8 g/dl (12.0-16.0); IMMATURE GRANULOCYTES 0.4 % (0.0-5.0); MEAN CORPUSCULAR HGB CONC 31.1 g/dL CAL (32.0-36.0); NEUT# 2.51 thou/uL (2.00-7.15); RED BLOOD COUNT 2.79 mill/uL (4.20-5.60); RED CELL DISTRI WIDTH 17.3 % (11.5-15.5)
[2020-11-29 20:26] LABS: ALBUMIN 4.3 g/dL (3.2-5.0); BILIRUBIN, TOTAL 0.5 mg/dL (0.0-1.4); CREATININE 1.2 mg/dL (0.5-1.0); D-DIMER 1.32 mg/L (0.19-0.60); POTASSIUM 4.4 mmol/l (3.5-5.1); TOTAL PROTEIN 8.6 g/dL (6.3-8.2)
[2020-11-29 20:30] LABS: INTERNATIONAL NORMALIZED RATIO 1.3 RATIO (0.7-1.3); PROTHROMBIN TIME 12.7 SECONDS (9.0-12.5)
[2020-11-29 20:57] LABS: TSH, 3RD GENERATION 4.7 uIU/mL (0.47 - 4.68)
[2020-11-30 00:17] VITALS: BP 157/97
== END 2020-11-30 00:50 | disposition home or self-care (01) ==
LOC: ED 19:15
PROVIDERS: Family Medicine
DX: R06.02 Shortness of breath (principal); D46.9 Myelodysplastic syndrome, unspecified; I12.9 Hypertensive chronic kidney disease with stage 1 through stage 4 chronic kidney disease, or unspecified chronic kidney disease; N18.2 Chronic kidney disease, stage 2 (mild); D64.9 Anemia, unspecified; J45.909 Unspecified asthma, uncomplicated; E03.9 Hypothyroidism, unspecified; E78.5 Hyperlipidemia, unspecified; Z20.822 Contact with and (suspected) exposure to COVID-19
CPT/HCPCS: Q9967

== ENCOUNTER 2020-12-24 22:06 | Observation (INO) | payer MEDICARE, MEDICAID ==
[~2020-12-24] VITALS: Ht 154.9 cm; Wt 57.5 kg
[~2020-12-24 22:06] MED LIST changes: +ASPIRIN CHEWABL81 MG PO; +BACLOFEN10 MG PO; +COLCHICINE0.6 M2 PO; +DIOVAN80 MG PO; +MECLIZINE25 MG PO; +PREDNISONE10 MG PO; +TOPAMAX25 MG PO
--- NOTE | 2020-12-24 22:15 | NUR ---
PT WHEELED TO ROOM # 11 AND ASSISTED INTO STRETCHER FOR BEDSIDE TRIAGE. DAUGHTER BEDSIDE.
--- NOTE | 2020-12-24 22:45 | NUR ---
LABS DRAWN PER ORDER. PT TOLERATED WELL. ADVISED PT AND DAUGHTER OF WAIT TIME FOR RESULTS. VERBALIZED UNDERSTANDIGN. DENIES ANY NEEDS. BLANKET PROVIDED. CALL LIGHT WITHIN REACH. BEFORE SCHOOL IN PLACE.
[2020-12-24 22:51] LABS: HEMATOCRIT 27.3 % (37.0-47.0); HEMOGLOBIN 8.6 g/dl (12.0-16.0); IMMATURE GRANULOCYTES 0.9 % (0.0-5.0); MEAN CELL VOLUME 93.5 fL CALC (80.0-100.0); MEAN CORPUSCULAR HGB 29.5 pG CALC (26.0-32.0); MEAN CORPUSCULAR HGB CONC 31.5 g/dL CAL (32.0-36.0); NEUT# 3.31 thou/uL (2.00-7.15); RED BLOOD COUNT 2.92 mill/uL (4.20-5.60); RED CELL DISTRI WIDTH 18.9 % (11.5-15.5)
--- NOTE | 2020-12-24 23:07 | NUR ---
PT TO RADIOLGY VIA STRETCHER IN STABLE CONDITION.
[2020-12-24 23:10] LABS: ALBUMIN 4.2 g/dL (3.2-5.0); CREATININE 1.8 mg/dL (0.5-1.0); POTASSIUM 4.1 mmol/l (3.5-5.1); TOTAL PROTEIN 8.1 g/dL (6.3-8.2)
[2020-12-24 23:16] LABS: BILIRUBIN, TOTAL 0.9 mg/dL (0.0-1.4)
--- NOTE | 2020-12-24 23:45 | NUR ---
PT RESTING ON STRETCHER WITH EYES OPEN. RESP EVEN AND UNLABORED. SKIN WARM AND DRY. LOFTSMAN IN PLACE. VERALIZES NO COMPLAINTS AT THIS TIME.
[2020-12-25] VITALS (7 sets, daily range): BP systolic 95–155; BP diastolic 55–91
--- NOTE | 2020-12-25 00:30 | NUR ---
PT RELOCATED TO ROOM # 13 FOR ADMIT HOLD. PLACED ON BRAKE DRUM LATHE OPERATOR.
--- NOTE | 2020-12-25 00:50 | NUR ---
COVID SWAB COMPLETED. PT TOLERATED WELL.
--- NOTE | 2020-12-25 01:00 | NUR ---
PT PLACED INTO HOSPITAL BED WITH MONITOR IN PLACE. INSTRUCTED ON USE OF CALL LIGHT AND PLAN FOR ADMIT IN ER. VERBALIZED UNDERSTANDING. DENIES ANY NEEDS.
[2020-12-25] MEDS ORDERED: KAPSPARGO SPRIN25 MG PO (01:09)
--- NOTE | 2020-12-25 04:00 | NUR ---
PT RESTING ON STRETCHER WITH EYES CLOSE. IV NORMAL SALINE INFUSING WITHOUT DIFFICULTY, SITE PATENT AND FREE FROM REDNESS, SWELLING, WARMTH. HUMAN RESOURCES BENEFITS SPECIALIST SR c IVCD 60
--- NOTE | 2020-12-25 07:00 | NUR ---
RECEIVED REPORT FROM LACIE MONGE.
--- NOTE | 2020-12-25 07:00 | NUR ---
REPORT GIVEN TO MARIPOSA MINOR, [facility].
--- NOTE | 2020-12-25 08:15 | NUR ---
DR QUINONEZ AT BEDSIDE, AWAITING NEW ORDERS.
[2020-12-25 08:47] LABS: HEMATOCRIT 27.9 % (37.0-47.0); HEMOGLOBIN 8.4 g/dl (12.0-16.0); MEAN CELL VOLUME 96.5 fL CALC (80.0-100.0); MEAN CORPUSCULAR HGB 29.1 pG CALC (26.0-32.0); MEAN CORPUSCULAR HGB CONC 30.1 g/dL CAL (32.0-36.0); NEUT# 2.26 thou/uL (2.00-7.15); RED BLOOD COUNT 2.89 mill/uL (4.20-5.60); RED CELL DISTRI WIDTH 19.1 % (11.5-15.5)
[2020-12-25 09:13] LABS: ALBUMIN 3.8 g/dL (3.2-5.0); BILIRUBIN, TOTAL 1.2 mg/dL (0.0-1.4); CREATININE 1.6 mg/dL (0.5-1.0); POTASSIUM 4.7 mmol/l (3.5-5.1); TOTAL PROTEIN 7.6 g/dL (6.3-8.2)
--- NOTE | 2020-12-25 10:30 | NUR ---
ASSISTED TO BEDSIDE COMMODE WITH STAND BY ASSIST. DENIES PAIN OR DISCOMFORT. CALL LIGHT WITHIN REACH.
--- NOTE | 2020-12-25 11:46 | NUR ---
REPORT CALLED TO FINA MONGE.
--- NOTE | 2020-12-25 12:00 | NUR ---
TO MED SURG VIA BED, TELE MONITOR IN PLACE.
[2020-12-25] MEDS ORDERED: ONDANSETRON ODT8 MG PO (12:23)
[2020-12-25] MEDS ORDERED: SUMATRIPTAN25 MG PO (12:23)
[2020-12-25] MEDS ORDERED: TRAZODONE50 MG PO (12:24)
[2020-12-25] MEDS ORDERED: SYMBICORT1 AE1 IN (12:25)
[2020-12-25] MEDS ORDERED: AIMOVIG140 MG/ML IJ (12:30)
[2020-12-25] MEDS ORDERED: DULCOLAX10 MG RE (12:31)
--- NOTE | 2020-12-25 12:36 | NUR ---
PT ARRIVES TO [facility] 267 VIA STRETCHER FROM ER, ALERT AND ORIENTED X 3. LUNGS CLEAR, RA. ABDOMINAL DISCOMFORT, PT STATES BM THIS MORNING, BUT THAT IT WAS NOT SOFT. NO COMPLAINTS OF SHORTNESS OF BREATH. IVF INFUSING.
--- NOTE | 2020-12-25 19:06 | NUR ---
REPORT FROM FINA MONGE. ASSUMED PT CARE.
--- NOTE | 2020-12-25 21:45 | NUR ---
PT MEDICATED ORDERED. NO APPARENT DISTRESS NOTED. PT DENIES ANY PAIN OR DISCOMFORT. ALERT AND ORIENTED. PASSENGER BOOKING CLERK IN PLACE. IV SITE APPEARS HEALTHY WITH IVF INFUSING. DISCUSSED POC. PT VERBALIZED UNDERSTANDING. FRESH ICE WATER PROVIDED. CALL LIGHT WITHIN REACH. WILL CONTINUE TO MONITOR.
--- NOTE | 2020-12-25 22:10 | NUR ---
ASSISTED PT UP TO [facility] X1 ASSIST. PT VOIDED WITHOUT DIFFICULTY. ASSISTED PT BACK INTO BED. NO APPARENT DISTRESS NOTED. PT DOES NOT VOICE ANY COMPLAINTS AT THIS TIME. CALL LIGHT WITHIN REACH. WILL CONTINUE TO MONITOR.
--- NOTE | 2020-12-26 02:45 | NUR ---
PT C/O OF RIGHT KNEE PAIN. RIGHT KNEE APPEARS SLIGHTLY LARGER THAN LEFT, WARM TO TOUCH. ELEVATED ON PILLOWS AND ICE PACK APPLIED. NO APPARENT DISTRESS NOTED. CALL LIGHT WITHIN REACH. WILL CONTINUE TO MONITOR.
[2020-12-26 04:00] VITALS: BP 129/75
[2020-12-26 05:31] LABS: HEMATOCRIT 27.4 % (37.0-47.0); HEMOGLOBIN 8.4 g/dl (12.0-16.0); MEAN CELL VOLUME 95.5 fL CALC (80.0-100.0); MEAN CORPUSCULAR HGB 29.3 pG CALC (26.0-32.0); MEAN CORPUSCULAR HGB CONC 30.7 g/dL CAL (32.0-36.0); RED BLOOD COUNT 2.87 mill/uL (4.20-5.60)
[2020-12-26 05:57] LABS: ALBUMIN 3.5 g/dL (3.2-5.0); BILIRUBIN, TOTAL 0.9 mg/dL (0.0-1.4); CREATININE 1.2 mg/dL (0.5-1.0); POTASSIUM 3.8 mmol/l (3.5-5.1); TOTAL PROTEIN 6.9 g/dL (6.3-8.2)
[2020-12-26 06:25] VITALS: BP 129/63
--- NOTE | 2020-12-26 09:00 | NUR ---
PT IN SUPINE POSITION; A/O X3; PT C/O PAIN TO RT KNEE, DOES NOT WANT PAIN MEDS AT THIS TIME; IVF INFUSING WITHOUT DIFFICULTY, NO REDNESS OR EDEMA AT SITE; VS OBTAINED AT THIS TIME; PT MODERATE ASSIST TO BSC; VOIDS WELL; TELE MONITOR IN PLACE; ENCOURAGE USE OF CALL LIGHT IF ANY ASSISTANCE IS NEEDED; WILL CONTINUE TO MONITOR.
[2020-12-26 09:03] VITALS: BP 121/71
[2020-12-26 11:00] VITALS: BP 135/72
--- NOTE | 2020-12-26 15:15 | NUR ---
Discharge instructions given. Patient verbalizes understanding of same. Discharged in stable condition via Wheelchair to Home with family. All belongings sent with pt.
== END 2020-12-26 15:14 | disposition home or self-care (01) ==
LOC: ED 22:06 → ED-I 12-25 00:07 → ED 12-25 00:21 → ED-I 12-25 00:22 → MS2 12-25 11:10
PROVIDERS: Family Medicine; Nurse Practitioner; Nurse Practitioner Family; ADMIT Internal Medicine; ATTEND Internal Medicine
DX: E87.1 Hypo-osmolality and hyponatremia (principal); N17.9 Acute kidney failure, unspecified; I13.0 Hypertensive heart and chronic kidney disease with heart failure and stage 1 through stage 4 chronic kidney disease, or unspecified chronic kidney disease; I50.9 Heart failure, unspecified; N18.2 Chronic kidney disease, stage 2 (mild); I25.10 Atherosclerotic heart disease of native coronary artery without angina pectoris; G89.29 Other chronic pain; R51.9 Headache, unspecified; D46.9 Myelodysplastic syndrome, unspecified; E03.9 Hypothyroidism, unspecified; E78.5 Hyperlipidemia, unspecified; Z87.11 Personal history of peptic ulcer disease; Z87.891 Personal history of nicotine dependence; Z20.822 Contact with and (suspected) exposure to COVID-19
CPT/HCPCS: J1650

== ENCOUNTER 2021-02-27 | Emergency (ER) | payer MEDICARE, MEDICAID ==
[~2021-02-27] MED LIST changes: +AIMOVIG140 MG/ML IJ; +DULCOLAX10 MG RE; +KAPSPARGO SPRIN25 MG PO; +ONDANSETRON ODT8 MG PO; +SUMATRIPTAN25 MG PO; +SYMBICORT1 AE1 IN
[2021-02-27 22:52] LABS: ALBUMIN 3.3 g/dL (3.2-5.0); BILIRUBIN, TOTAL 0.6 mg/dL (0.0-1.4); CREATININE 1.5 mg/dL (0.5-1.0); POTASSIUM 4.3 mmol/l (3.5-5.1); TOTAL PROTEIN 6.2 g/dL (6.3-8.2)
[2021-02-27 23:02] LABS: MEAN CELL VOLUME 93.1 fL CALC (80.0-100.0); MEAN CORPUSCULAR HGB 29.2 pG CALC (26.0-32.0); MEAN CORPUSCULAR HGB CONC 31.3 g/dL CAL (32.0-36.0); RED BLOOD COUNT 2.16 mill/uL (4.20-5.60); RED CELL DISTRI WIDTH 17.2 % (11.5-15.5)
[2021-02-27 23:04] LABS: HEMATOCRIT 20.1 % (37.0-47.0); HEMOGLOBIN 6.3 g/dl (12.0-16.0); IMMATURE GRANULOCYTES 0.9 % (0.0-5.0); NEUT# 6.58 thou/uL (2.00-7.15)
[2021-02-28 00:20] VITALS: BP 90/50
== END 2021-02-28 00:37 | disposition short-term general hospital (02) ==
PROVIDERS: Emergency Medicine
PROC: 30233N1 Transfusion of Nonautologous Red Blood Cells into Peripheral Vein, Percutaneous Approach (ICD-10-PCS; principal; 2021-02-28)
DX: K92.2 Gastrointestinal hemorrhage, unspecified (principal); D64.9 Anemia, unspecified; N19 Unspecified kidney failure; D69.6 Thrombocytopenia, unspecified; I95.9 Hypotension, unspecified; R41.0 Disorientation, unspecified; D46.9 Myelodysplastic syndrome, unspecified; I50.9 Heart failure, unspecified
CPT/HCPCS: P9016; S0164

== ENCOUNTER 2021-03-14 | Emergency (ER) | payer MEDICARE, MEDICAID ==
[2021-03-14 17:00] LABS: ALBUMIN 3.7 g/dL (3.2-5.0); BILIRUBIN, TOTAL 0.6 mg/dL (0.0-1.4); CREATININE 1.2 mg/dL (0.5-1.0); POTASSIUM 4.9 mmol/l (3.5-5.1)
[2021-03-14 17:18] LABS: IMMATURE GRANULOCYTES 0.6 % (0.0-5.0); MEAN CELL VOLUME 98.3 fL CALC (80.0-100.0); MEAN CORPUSCULAR HGB 30.2 pG CALC (26.0-32.0); MEAN CORPUSCULAR HGB CONC 30.7 g/dL CAL (32.0-36.0); NEUT# 4.03 thou/uL (2.00-7.15); RED BLOOD COUNT 3.01 mill/uL (4.20-5.60)
[2021-03-14 17:19] LABS: HEMATOCRIT 29.6 % (37.0-47.0); HEMOGLOBIN 9.1 g/dl (12.0-16.0)
== END 2021-03-14 18:35 | disposition short-term general hospital (02) ==
DX: I21.4 Non-ST elevation (NSTEMI) myocardial infarction (principal); D69.6 Thrombocytopenia, unspecified; D64.9 Anemia, unspecified; R22.2 Localized swelling, mass and lump, trunk; H91.90 Unspecified hearing loss, unspecified ear

== ENCOUNTER 2021-03-20 | Emergency (ER) | payer MEDICARE, MEDICAID ==
[2021-03-20 16:01] LABS: HEMATOCRIT 24.4 % (37.0-47.0); HEMOGLOBIN 7.4 g/dl (12.0-16.0); IMMATURE GRANULOCYTES 0.6 % (0.0-5.0); MEAN CELL VOLUME 97.2 fL CALC (80.0-100.0); MEAN CORPUSCULAR HGB 29.5 pG CALC (26.0-32.0); MEAN CORPUSCULAR HGB CONC 30.3 g/dL CAL (32.0-36.0); NEUT# 3.22 thou/uL (2.00-7.15); RED BLOOD COUNT 2.51 mill/uL (4.20-5.60); RED CELL DISTRI WIDTH 15.5 % (11.5-15.5)
[2021-03-20 16:33] LABS: INTERNATIONAL NORMALIZED RATIO 1.1 RATIO (0.7-1.3); PROTHROMBIN TIME 11.6 SECONDS (9.0-12.5)
[2021-03-20 16:37] LABS: ALBUMIN 3.4 g/dL (3.2-5.0); BILIRUBIN, TOTAL 0.4 mg/dL (0.0-1.4); CREATININE 1.2 mg/dL (0.5-1.0); POTASSIUM 4.9 mmol/l (3.5-5.1); TOTAL PROTEIN 6.6 g/dL (6.3-8.2)
== END 2021-03-20 21:15 | disposition short-term general hospital (02) ==
DX: I22.2 Subsequent non-ST elevation (NSTEMI) myocardial infarction (principal); I50.9 Heart failure, unspecified; I21.4 Non-ST elevation (NSTEMI) myocardial infarction; I25.10 Atherosclerotic heart disease of native coronary artery without angina pectoris; Z20.822 Contact with and (suspected) exposure to COVID-19

== ENCOUNTER 2021-03-26 10:01 | Observation (INO) | payer MEDICARE, MEDICAID ==
[~2021-03-26] VITALS: Ht 152.4 cm; Wt 49.0 kg
[2021-03-26] VITALS (8 sets, daily range): BP systolic 113–128; BP diastolic 47–65
--- NOTE | 2021-03-26 10:05 | NUR ---
PT WHEELED TO ROOM # 14 FOR BEDSIDE TRIAGE. PLACED ON MONITOR. EKG PERFORMED. DR PANG MADE AWARE OF PT ARRIVAL.
[2021-03-26 10:47] LABS: HEMATOCRIT 22.3 % (37.0-47.0); MEAN CELL VOLUME 93.3 fL CALC (80.0-100.0); MEAN CORPUSCULAR HGB 28.9 pG CALC (26.0-32.0); MEAN CORPUSCULAR HGB CONC 30.9 g/dL CAL (32.0-36.0); NEUT# 3.74 thou/uL (2.00-7.15); RED BLOOD COUNT 2.39 mill/uL (4.20-5.60)
[2021-03-26 10:48] LABS: HEMOGLOBIN 6.9 g/dl (12.0-16.0)
--- NOTE | 2021-03-26 11:05 | NUR ---
REPORT FROMRISA MONGE
[2021-03-26 11:12] LABS: D-DIMER 1.13 mg/L (0.19-0.60)
[2021-03-26 11:16] LABS: INTERNATIONAL NORMALIZED RATIO 1.1 RATIO (0.7-1.3); PROTHROMBIN TIME 11.1 SECONDS (9.0-12.5)
[2021-03-26 11:17] LABS: ALBUMIN 3.7 g/dL (3.2-5.0); BILIRUBIN, TOTAL 0.5 mg/dL (0.0-1.4); CREATININE 1.3 mg/dL (0.5-1.0); MAGNESIUM 1.8 mg/dL (1.6-2.3); TOTAL PROTEIN 7.1 g/dL (6.3-8.2)
[2021-03-26 11:19] LABS: POTASSIUM 5.2 mmol/l (3.5-5.1)
--- NOTE | 2021-03-26 12:00 | NUR ---
PATIENT STATES UNDERSTANDING OF BLOOD TRANSFUSION AND AGREES. CONSENT FORM SIGNED BY NURSE SONALI MONGE.
--- NOTE | 2021-03-26 12:32 | NUR ---
BLOOD TRANSFUSION RUNNING WITHOUT DIFFICULTY, JAZZY RN REMAINS BEDSIDE WITH PATIENT FOR VITALS/MONITORING.
[2021-03-26] MEDS ORDERED: PROTONIX40 M2 PO (13:19)
--- NOTE | 2021-03-26 13:21 | NUR ---
REPORT CALLED TO FLOOR NURSE.
--- NOTE | 2021-03-26 13:30 | NUR ---
PATIENT BELONG LIST COMPLETED SENT TO FLOOR.
--- NOTE | 2021-03-26 13:35 | NUR ---
PT ARRIVED TO UNIT AT THIS TIME VIA STRETCHER WITH ER STAFF X 2; ALERT AND OREINTED X 4. ASSISTED FROM STRETCHER TO BED WITH SHEETS AND FULL ASSIST. C/O PAIN TO BILATERAL KNEES WITH MOVEMENT. RESPIRATIONS EVEN AND UNLABORED ON ROOM AIR; LUNGS ARE CLEAR. IV SITE TO LAC APPEARS HEALTHY; UNIT #1 OF PRBC'S INFUSING AT 125 ML/HR UPON ARRIVAL; VSS; NO SIGNS OF REACTION. PT ASSISTED ONTO BSC WITH 2 PERSON ASSIST FOR VOID; UA SENT TO LAB. ORIENTED TO ROOM AND CALL LIGHT SYSTEM. PLAN OF CARE DISCUSSED; PT ENCOURAGED TO VERBALIZE CONCERNS. STATES UNDERSTANDING. SAFETY MEASURES IN PLACE. CALL LIGHT WITHIN REACH.
[2021-03-26 14:04] LABS: URINE BILIRUBIN - DIPSTICK NEGATIVE (NEGATIVE); URINE BLOOD DIPSTICK NEGATIVE (NEGATIVE); URINE COLOR YELLOW; URINE GLUCOSE - DIPSTICK NEGATIVE (NEGATIVE); URINE KETONE NEGATIVE (NEGATIVE); URINE LEUK ESTERASE NEGATIVE (NEGATIVE); URINE PROTEIN - DIPSTICK NEGATIVE (NEG-TRACE); URINE UROBILINOGEN - DIPSTICK 0.2 E.U./dL (0.2)
[2021-03-26 14:05] LABS: URINE NITRITE - DIPSTICK NEGATIVE (Negative)
--- NOTE | 2021-03-26 15:16 | NUR ---
PT note Patient is screened for PT interevention. She would benefit from PT intervention
--- NOTE | 2021-03-26 15:47 | NUR ---
SECOND UNIT OF PRBC'S INITIATED AT THIS WITH NEW IV TUBING; PT TOLERATED FIRST UNIT WELL. RESTING SEMI FOWLERS WITH EYES CLOSED. NO REQUESTS OR CONCERNS AT THIS TIME.
--- NOTE | 2021-03-26 17:45 | NUR ---
PT EXPERIENCING AN INCREASED SOB; OXYGEN APPLIED AT 2L VIA NC; SPO2 99-100% WITH OXYGEN IN PLACE. LUNGS ARE CLEAR WITH SOME MILD RHONCHI NOW TO RIGHT LOWER LOBE. TEMPERATURE 97.4 AND STABLE. NO OTHER REPORTED SYMPTOMS. BLOOD TRANSFUSION SLOWED TO 75 ML/HR. PURWIK CATHETER APPLIED FOR URINARY FREQUENCY AND DIFFICULTY GETTING TO BSC. WILL CONTINUE TO CLOSELY MONITOR.
--- NOTE | 2021-03-26 18:29 | NUR ---
BLOOD TRANSFUSION COMPLETED; VSS. 20MG OF LASIX IV GIVEN AFTER TRANFUSION PER ORDER. PT SITTING UP IN BED EATING DINNER. CALL LIGHT WITHIN REACH.
[2021-03-27 00:15] VITALS: BP 89/52
--- NOTE | 2021-03-27 00:52 | NUR ---
PATIENT RESTING IN BED SEME-FOWLERS POSITIONS WITH EYES CLOSED. MEDICATED WITH TYLENOL PRN FOR C/O HEADACHE. BED IN LOW POSITION. CALL LIGHT WITHIN REACH.
[2021-03-27 04:48] VITALS: BP 99/60
[2021-03-27 06:43] LABS: HEMATOCRIT 26.1 % (37.0-47.0); HEMOGLOBIN 8.4 g/dl (12.0-16.0); MEAN CELL VOLUME 91.3 fL CALC (80.0-100.0); MEAN CORPUSCULAR HGB 29.4 pG CALC (26.0-32.0); MEAN CORPUSCULAR HGB CONC 32.2 g/dL CAL (32.0-36.0); RED BLOOD COUNT 2.86 mill/uL (4.20-5.60); RED CELL DISTRI WIDTH 15.9 % (11.5-15.5)
[2021-03-27 07:08] LABS: CREATININE 1.3 mg/dL (0.5-1.0); MAGNESIUM 1.8 mg/dL (1.6-2.3); POTASSIUM 4.7 mmol/l (3.5-5.1)
--- NOTE | 2021-03-27 07:30 | NUR ---
REPORT RECEIVED FROM MARIPOSA GLEZ. PT RESTING IN BED SEMI FOWLERS; ALERT AND ORIENTED X 3. C/O PAIN TO BILATERAL KNEES, HEAD, AND NECK; REPORTS THAT SHE ALWAYS HAS PAIN TO THESE AREAS; TAKES TYLENOL AT HOME, BUT IT IS INEFFECTIVE. RESPIRATIONS EVEN AND UNLABORED ON OXYGEN 2L VIA NC. IV SITE TO LAC APPEARS HEALTHY AND FLUSHES. POC REVIEWED; PT ENCOURAGED TO VERBALIZE CONCERNS. STATES UNDERSTANDING. SAFETY MEASURES IN PLACE. CALL LIGHT WITHIN REACH.
[2021-03-27 07:39] VITALS: BP 112/67
--- NOTE | 2021-03-27 10:23 | NUR ---
TYLENOL GIVEN FOR HEADACHE AND COOL CLOTH PROVIDED.
--- NOTE | 2021-03-27 11:00 | NUR ---
DAUGHTER, MIGUEL, CALLED FOR UPDATE.
[2021-03-27 11:10] VITALS: BP 100/55
--- NOTE | 2021-03-27 11:17 | NUR ---
IV site discontinued, cath intact. No edema , no redness, voices no discomfort. TELEMETRY REMOVED. PT CHANGED INTO HOME CLOTHES.
--- NOTE | 2021-03-27 11:52 | NUR ---
Discharge instructions given. Patient verbalizes understanding of same. Discharged in stable condition via Wheelchair to Home with [facility] transported by daughter, Linnea. All belongings sent with pt.
== END 2021-03-27 11:52 | disposition home health service (06) ==
LOC: ED 10:01 → ED-I 11:58 → ED 12:06 → MS2 12:07
PROVIDERS: Nurse Practitioner; ADMIT Internal Medicine; ATTEND Internal Medicine
PROC: 30233N1 Transfusion of Nonautologous Red Blood Cells into Peripheral Vein, Percutaneous Approach (ICD-10-PCS; principal; 2021-03-26)
PROC: 30233N1 Transfusion of Nonautologous Red Blood Cells into Peripheral Vein, Percutaneous Approach (ICD-10-PCS; 2021-03-26)
DX: D46.9 Myelodysplastic syndrome, unspecified (principal); I12.9 Hypertensive chronic kidney disease with stage 1 through stage 4 chronic kidney disease, or unspecified chronic kidney disease; N18.2 Chronic kidney disease, stage 2 (mild); I25.10 Atherosclerotic heart disease of native coronary artery without angina pectoris; E03.9 Hypothyroidism, unspecified; E78.5 Hyperlipidemia, unspecified; Z20.822 Contact with and (suspected) exposure to COVID-19; Z87.891 Personal history of nicotine dependence
CPT/HCPCS: G0378; P9016; S0164

== ENCOUNTER 2021-05-01 21:17 | Emergency (ER) | payer MEDICARE, MEDICAID ==
[~2021-05-01] VITALS: Ht 154.9 cm; Wt 50.0 kg
[2021-05-01 21:50] LABS: IMMATURE GRANULOCYTES 0.8 % (0.0-5.0); MEAN CELL VOLUME 96.7 fL CALC (80.0-100.0); MEAN CORPUSCULAR HGB 29.3 pG CALC (26.0-32.0); MEAN CORPUSCULAR HGB CONC 30.3 g/dL CAL (32.0-36.0); NEUT# 4.65 thou/uL (2.00-7.15); RED BLOOD COUNT 1.84 mill/uL (4.20-5.60); RED CELL DISTRI WIDTH 16.8 % (11.5-15.5)
[2021-05-01 22:03] LABS: ALBUMIN 3.2 g/dL (3.2-5.0); CREATININE 1.5 mg/dL (0.5-1.0); POTASSIUM 4.3 mmol/l (3.5-5.1); TOTAL PROTEIN 6.3 g/dL (6.3-8.2)
[2021-05-01 22:22] LABS: HEMATOCRIT 17.8 % (37.0-47.0); HEMOGLOBIN 5.4 g/dl (12.0-16.0)
[2021-05-01 22:32] LABS: TSH, 3RD GENERATION 11.3 uIU/mL (0.47 - 4.68)
[2021-05-01 23:10] VITALS: BP 109/53
[2021-05-01 23:10] LABS: HEMOGLOBIN 4.9 g/dl (12.0-16.0)
== END 2021-05-01 23:10 | disposition short-term general hospital (02) ==
LOC: ED 21:17
PROVIDERS: Family Medicine
DX: R79.89 Other specified abnormal findings of blood chemistry (principal); R55 Syncope and collapse; D46.9 Myelodysplastic syndrome, unspecified; D64.9 Anemia, unspecified; I12.9 Hypertensive chronic kidney disease with stage 1 through stage 4 chronic kidney disease, or unspecified chronic kidney disease; N18.2 Chronic kidney disease, stage 2 (mild)

== ENCOUNTER 2021-06-25 17:13 | Observation (INO) | payer MEDICARE, MEDICAID ==
[~2021-06-25] VITALS: Ht 152.4 cm; Wt 49.0 kg
[2021-06-25 19:36] LABS: IMMATURE GRANULOCYTES 1.6 % (0.0-5.0); MEAN CELL VOLUME 96.6 fL CALC (80.0-100.0); MEAN CORPUSCULAR HGB 29.8 pG CALC (26.0-32.0); MEAN CORPUSCULAR HGB CONC 30.9 g/dL CAL (32.0-36.0); NEUT# 10.19 thou/uL (2.00-7.15); RED BLOOD COUNT 3.52 mill/uL (4.20-5.60); RED CELL DISTRI WIDTH 15.6 % (11.5-15.5)
[2021-06-25 19:42] LABS: ALBUMIN 2.8 g/dL (3.2-5.0); ANION GAP 12 (6-22 (CALC)); CARBON DIOXIDE 23 mmol/l (22-30); CHLORIDE 101 mmol/l (95-108); GFR 52 ML/MIN (>=60 (CALC)); GFR FOR AFR.AMER. > 60 ML/MIN (>=60 (CALC)); POTASSIUM 4.9 mmol/l (3.5-5.1); SGOT/AST 41 u/l (9-36); SODIUM 132 mmol/l (137-146); TOTAL PROTEIN 6.4 g/dL (6.3-8.2)
[2021-06-25 19:43] LABS: ALKALINE PHOSPHATASE 76 u/l (38-126); BILIRUBIN, TOTAL 0.5 mg/dL (0.0-1.4); BUN 28 mg/dL (8-23); BUN/CREATININE RATIO 28 (12-20 (CALC))
[2021-06-25 20:12] LABS: HEMOGLOBIN 10.5 g/dl (12.0-16.0)
[2021-06-25 21:45] VITALS: BP 125/73
[2021-06-26] VITALS (7 sets, daily range): BP systolic 103–133; BP diastolic 64–86
[2021-06-26 05:25] LABS: HEMOGLOBIN 9.8 g/dl (12.0-16.0); MEAN CELL VOLUME 94.8 fL CALC (80.0-100.0); MEAN CORPUSCULAR HGB CONC 31.6 g/dL CAL (32.0-36.0); RED BLOOD COUNT 3.27 mill/uL (4.20-5.60); RED CELL DISTRI WIDTH 15.6 % (11.5-15.5)
[2021-06-26 05:27] LABS: URINE BILIRUBIN - DIPSTICK NEGATIVE (NEGATIVE); URINE BLOOD DIPSTICK MODERATE (NEGATIVE); URINE CLARITY CLOUDY; URINE COLOR YELLOW; URINE GLUCOSE - DIPSTICK NEGATIVE (NEGATIVE); URINE KETONE NEGATIVE (NEGATIVE); URINE LEUK ESTERASE LARGE (Negative); URINE NITRITE - DIPSTICK NEGATIVE (Negative); URINE PH 6.5 (4.5-8.0); URINE PROTEIN - DIPSTICK TRACE mg/dL (NEG-TRACE); URINE SPECIFIC GRAVITY 1.015; URINE UROBILINOGEN - DIPSTICK 0.2 E.U./dL (0.2)
[2021-06-26 05:36] LABS: ANION GAP 10 (6-22 (CALC)); BUN 25 mg/dL (8-23); BUN/CREATININE RATIO 27 (12-20 (CALC)); CARBON DIOXIDE 24 mmol/l (22-30); CHLORIDE 104 mmol/l (95-108); CREATININE 0.9 mg/dL (0.5-1.0); GFR 59 ML/MIN (>=60 (CALC)); GFR FOR AFR.AMER. > 60 ML/MIN (>=60 (CALC)); MAGNESIUM 1.6 mg/dL (1.6-2.3); POTASSIUM 4.5 mmol/l (3.5-5.1); SODIUM 133 mmol/l (137-146)
[2021-06-26 06:15] LABS: URINE BACTERIA MANY hpf; URINE RBC 25-50 RBC/hpf (0-5); URINE SQUAMOUS EPITHELIAL CELL FEW EPI/hpf (0-FEW); URINE WBC 50-100 WBC/hpf (0-5)
[2021-06-26] MEDS ORDERED: SUMATRIPTAN SUC25 MG PO (10:56)
[2021-06-26] MEDS ORDERED: TOPROL XL25 MG PO (10:58)
[2021-06-26] MEDS ORDERED: HYDROCO/APAP1 TA9 PO (11:01)
[2021-06-26] MEDS ORDERED: ALBUTEROL108 MCG/AC IN (11:05)
[2021-06-26] MEDS ORDERED: BACLOFEN10 MG PO ×2 (11:07→11:28)
[2021-06-26] MEDS ORDERED: TOPIRAMATE50 MG PO (11:07)
[2021-06-26] MEDS ORDERED: TRAMADOL HCL50 MG PO (11:11)
[2021-06-26] MEDS ORDERED: VALSARTAN80 MG PO (11:12)
[2021-06-26] MEDS ORDERED: PROVENTIL108 MCG/AC IN (11:35)
[2021-06-27 03:24] VITALS: BP 113/73
[2021-06-27 08:17] VITALS: BP 124/75
[2021-06-27 08:17] LABS: HEMATOCRIT 32.4 % (37.0-47.0); HEMOGLOBIN 10.1 g/dl (12.0-16.0); MEAN CELL VOLUME 95.6 fL CALC (80.0-100.0); MEAN CORPUSCULAR HGB 29.8 pG CALC (26.0-32.0); MEAN CORPUSCULAR HGB CONC 31.2 g/dL CAL (32.0-36.0); RED BLOOD COUNT 3.39 mill/uL (4.20-5.60); RED CELL DISTRI WIDTH 15.5 % (11.5-15.5)
[2021-06-27 08:29] LABS: ANION GAP 11 (6-22 (CALC)); BUN 21 mg/dL (8-23); BUN/CREATININE RATIO 25 (12-20 (CALC)); CARBON DIOXIDE 23 mmol/l (22-30); CHLORIDE 102 mmol/l (95-108); CREATININE 0.9 mg/dL (0.5-1.0); GFR 59 ML/MIN (>=60 (CALC)); GFR FOR AFR.AMER. > 60 ML/MIN (>=60 (CALC)); POTASSIUM 4.7 mmol/l (3.5-5.1); SODIUM 132 mmol/l (137-146)
[2021-06-27 15:49] VITALS: BP 141/74
[2021-06-27 18:39] VITALS: BP 129/81
[2021-06-27 20:50] VITALS: BP 128/85
[2021-06-28 01:25] VITALS: BP 104/64
[2021-06-28 03:29] VITALS: BP 108/60
[2021-06-28 05:48] LABS: HEMATOCRIT 30.5 % (37.0-47.0); HEMOGLOBIN 9.8 g/dl (12.0-16.0); MEAN CELL VOLUME 93.8 fL CALC (80.0-100.0); MEAN CORPUSCULAR HGB 30.2 pG CALC (26.0-32.0); MEAN CORPUSCULAR HGB CONC 32.1 g/dL CAL (32.0-36.0); RED BLOOD COUNT 3.25 mill/uL (4.20-5.60); RED CELL DISTRI WIDTH 15.3 % (11.5-15.5)
[2021-06-28 06:04] LABS: ALBUMIN 2.5 g/dL (3.2-5.0); ALKALINE PHOSPHATASE 65 u/l (38-126); ANION GAP 10 (6-22 (CALC)); BILIRUBIN, TOTAL 0.4 mg/dL (0.0-1.4); BUN 20 mg/dL (8-23); BUN/CREATININE RATIO 20 (12-20 (CALC)); CARBON DIOXIDE 25 mmol/l (22-30); CHLORIDE 100 mmol/l (95-108); GFR 52 ML/MIN (>=60 (CALC)); GFR FOR AFR.AMER. > 60 ML/MIN (>=60 (CALC)); POTASSIUM 4.5 mmol/l (3.5-5.1); SGOT/AST 29 u/l (9-36); SODIUM 130 mmol/l (137-146); TOTAL PROTEIN 5.6 g/dL (6.3-8.2)
[2021-06-28 07:29] VITALS: BP 99/53
[2021-06-28 15:37] VITALS: BP 100/59
[2021-06-28 19:45] VITALS: BP 109/65
[2021-06-29 03:29] VITALS: BP 117/75
[2021-06-29 05:35] LABS: HEMATOCRIT 31.5 % (37.0-47.0); MEAN CELL VOLUME 94.3 fL CALC (80.0-100.0); MEAN CORPUSCULAR HGB 29.9 pG CALC (26.0-32.0); MEAN CORPUSCULAR HGB CONC 31.7 g/dL CAL (32.0-36.0); RED BLOOD COUNT 3.34 mill/uL (4.20-5.60); RED CELL DISTRI WIDTH 15.3 % (11.5-15.5)
[2021-06-29 06:03] LABS: ALBUMIN 2.7 g/dL (3.2-5.0); ALKALINE PHOSPHATASE 67 u/l (38-126); ANION GAP 10 (6-22 (CALC)); BILIRUBIN, TOTAL 0.4 mg/dL (0.0-1.4); BUN 22 mg/dL (8-23); BUN/CREATININE RATIO 21 (12-20 (CALC)); CARBON DIOXIDE 26 mmol/l (22-30); CHLORIDE 99 mmol/l (95-108); GFR 52 ML/MIN (>=60 (CALC)); GFR FOR AFR.AMER. > 60 ML/MIN (>=60 (CALC)); POTASSIUM 4.8 mmol/l (3.5-5.1); SGOT/AST 29 u/l (9-36); SODIUM 130 mmol/l (137-146)
[2021-06-29 07:40] VITALS: BP 117/64
[2021-06-29] MEDS ORDERED: OMNICEF300 MG PO (14:41)
[2021-06-29 15:31] VITALS: BP 145/75
[2021-06-29 19:06] VITALS: BP 146/87
== END 2021-06-29 19:10 ==
LOC: ED 17:13 → ED-I 18:58 → ED 19:03 → MS2 19:13
PROVIDERS: Nurse Practitioner; Nurse Practitioner Family; ADMIT Internal Medicine; ATTEND Internal Medicine
DX: R53.1 Weakness (principal); N39.0 Urinary tract infection, site not specified; I11.0 Hypertensive heart disease with heart failure; I50.9 Heart failure, unspecified; C94.6 Myelodysplastic disease, not elsewhere classified; I25.10 Atherosclerotic heart disease of native coronary artery without angina pectoris; E03.9 Hypothyroidism, unspecified; E78.5 Hyperlipidemia, unspecified; H40.9 Unspecified glaucoma; R04.2 Hemoptysis; Z20.822 Contact with and (suspected) exposure to COVID-19
CPT/HCPCS: G0378

== ENCOUNTER 2021-07-10 11:24 | Emergency (ER) | payer MEDICARE, MEDICAID ==
[~2021-07-10 11:24] MED LIST changes: +ALBUTEROL108 MCG/AC IN; +HYDROCO/APAP1 TA9 PO; +OMNICEF300 MG PO; +PROVENTIL108 MCG/AC IN; +SUMATRIPTAN SUC25 MG PO; +TOPIRAMATE50 MG PO; +TOPROL XL25 MG PO; +VALSARTAN80 MG PO
[2021-07-10 13:01] LABS: HEMATOCRIT 32.3 % (37.0-47.0); HEMOGLOBIN 10.5 g/dl (12.0-16.0); IMMATURE GRANULOCYTES 0.6 % (0.0-5.0); MEAN CELL VOLUME 91.2 fL CALC (80.0-100.0); MEAN CORPUSCULAR HGB 29.7 pG CALC (26.0-32.0); MEAN CORPUSCULAR HGB CONC 32.5 g/dL CAL (32.0-36.0); NEUT# 3.05 thou/uL (2.00-7.15); RED BLOOD COUNT 3.54 mill/uL (4.20-5.60); RED CELL DISTRI WIDTH 14.8 % (11.5-15.5)
[2021-07-10 13:47] LABS: CREATININE 1.3 mg/dL (0.5-1.0); POTASSIUM 4.6 mmol/l (3.5-5.1)
[2021-07-10 14:04] LABS: ALBUMIN 3.9 g/dL (3.2-5.0); BILIRUBIN, TOTAL 0.6 mg/dL (0.0-1.4); TOTAL PROTEIN 8.1 g/dL (6.3-8.2)
[2021-07-10 15:35] LABS: URINE BILIRUBIN - DIPSTICK NEGATIVE (NEGATIVE); URINE BLOOD DIPSTICK NEGATIVE (NEGATIVE); URINE COLOR YELLOW; URINE GLUCOSE - DIPSTICK NEGATIVE (NEGATIVE); URINE KETONE NEGATIVE (NEGATIVE); URINE LEUK ESTERASE NEGATIVE (NEGATIVE); URINE PROTEIN - DIPSTICK NEGATIVE (NEG-TRACE); URINE UROBILINOGEN - DIPSTICK 0.2 E.U./dL (0.2)
[2021-07-10 15:37] LABS: URINE NITRITE - DIPSTICK NEGATIVE (Negative)
[2021-07-10 17:00] VITALS: BP 137/80
== END 2021-07-10 17:26 ==
LOC: ED 11:24
PROVIDERS: Emergency Medicine
DX: E86.0 Dehydration (principal); E87.1 Hypo-osmolality and hyponatremia; Z20.822 Contact with and (suspected) exposure to COVID-19

== ENCOUNTER 2021-07-12 16:57 | Observation (INO) | payer MEDICARE, MEDICAID ==
[~2021-07-12] VITALS: Ht 152.4 cm; Wt 65.0 kg
[2021-07-12] MEDS ORDERED: LASIX 20 MG TAB20 MG PO (17:12)
[2021-07-12 17:23] LABS: HEMATOCRIT 27.3 % (37.0-47.0); HEMOGLOBIN 9.1 g/dl (12.0-16.0); IMMATURE GRANULOCYTES 0.5 % (0.0-5.0); MEAN CELL VOLUME 90.1 fL CALC (80.0-100.0); MEAN CORPUSCULAR HGB CONC 33.3 g/dL CAL (32.0-36.0); NEUT# 5.41 thou/uL (2.00-7.15); RED BLOOD COUNT 3.03 mill/uL (4.20-5.60); RED CELL DISTRI WIDTH 15.4 % (11.5-15.5)
[2021-07-12 17:41] LABS: ACT PARTIAL THROMBO TIME 35.6 SECONDS (20.0-32.5); INTERNATIONAL NORMALIZED RATIO 1.2 RATIO (0.7-1.3)
[2021-07-12 18:22] LABS: ALBUMIN 3.6 g/dL (3.2-5.0); BILIRUBIN, TOTAL 0.4 mg/dL (0.0-1.4); CREATININE 1.6 mg/dL (0.5-1.0); TOTAL PROTEIN 7.2 g/dL (6.3-8.2)
[2021-07-12 21:05] VITALS: BP 135/65
[2021-07-13 01:25] VITALS: BP 113/54
[2021-07-13 04:00] VITALS: BP 106/60
[2021-07-13 09:55] VITALS: BP 120/69
[2021-07-13 10:55] VITALS: BP 122/70
[2021-07-13 12:10] LABS: CREATININE 1.5 mg/dL (0.5-1.0); POTASSIUM 3.9 mmol/l (3.5-5.1)
[2021-07-13] MEDS ORDERED: NITROSTAT0.3 MG SL (15:05)
[2021-07-13 15:30] VITALS: BP 131/76
[2021-07-13 19:26] VITALS: BP 143/85
== END 2021-07-13 20:50 ==
LOC: ED 16:57 → ED-I 18:41 → ED 18:44 → MS2 18:45
PROVIDERS: Nurse Practitioner; ADMIT Internal Medicine; ATTEND Internal Medicine
DX: R07.9 Chest pain, unspecified (principal); I25.10 Atherosclerotic heart disease of native coronary artery without angina pectoris; I12.9 Hypertensive chronic kidney disease with stage 1 through stage 4 chronic kidney disease, or unspecified chronic kidney disease; N18.2 Chronic kidney disease, stage 2 (mild); C94.6 Myelodysplastic disease, not elsewhere classified; K29.70 Gastritis, unspecified, without bleeding; E78.5 Hyperlipidemia, unspecified; H40.9 Unspecified glaucoma; E03.9 Hypothyroidism, unspecified; Z87.891 Personal history of nicotine dependence; Z20.822 Contact with and (suspected) exposure to COVID-19
CPT/HCPCS: G0378

== ENCOUNTER 2021-07-23 16:16 | Inpatient (IN) | payer MEDICARE, MEDICAID ==
[~2021-07-23] VITALS: Ht 152.4 cm; Wt 68.0 kg
[~2021-07-23 16:16] MED LIST changes: +LASIX 20 MG TAB20 MG PO; +NITROSTAT0.3 MG SL
--- NOTE | 2021-07-23 16:16 | NUR ---
PT TO ROOM VIA EMS, PT MOANING, ABLE TO STATE NAME. MD AT BEDSIDE
--- NOTE | 2021-07-23 17:27 | NUR ---
DAUGHTER AT BEDSIDE. FLUIDS INFUSING WITHOUT DIFFICULTY. CALL LIGHT WITHIN REACH. STABLE ON MONITOR.
[2021-07-23 18:24] LABS: ALBUMIN 3.4 g/dL (3.2-5.0); BILIRUBIN, TOTAL 0.3 mg/dL (0.0-1.4); CREATININE 1.5 mg/dL (0.5-1.0); MAGNESIUM 1.9 mg/dL (1.6-2.3); POTASSIUM 4.4 mmol/l (3.5-5.1); TOTAL PROTEIN 6.5 g/dL (6.3-8.2)
[2021-07-23 18:26] LABS: ACT PARTIAL THROMBO TIME 20.1 SECONDS (20.0-32.5); INTERNATIONAL NORMALIZED RATIO 1.1 RATIO (0.7-1.3); PROTHROMBIN TIME 11.2 SECONDS (9.0-12.5)
[2021-07-23 18:46] LABS: HEMATOCRIT 21.4 % (37.0-47.0); IMMATURE GRANULOCYTES 1.2 % (0.0-5.0); MEAN CORPUSCULAR HGB 29.7 pG CALC (26.0-32.0); MEAN CORPUSCULAR HGB CONC 30.8 g/dL CAL (32.0-36.0); NEUT# 8.98 thou/uL (2.00-7.15); RED BLOOD COUNT 2.22 mill/uL (4.20-5.60); RED CELL DISTRI WIDTH 18.4 % (11.5-15.5)
[2021-07-23 18:50] LABS: MEAN CELL VOLUME 96.4 fL CALC (80.0-100.0)
--- NOTE | 2021-07-23 18:50 | NUR ---
IV FLUIDS CONTINUE TO INFUSE. BP IMPROVED.
[2021-07-23 18:51] LABS: HEMOGLOBIN 6.6 g/dl (12.0-16.0)
--- NOTE | 2021-07-23 19:40 | NUR ---
RECEIVED PT RESTING IN BED WITH EYES CLOSED. EASILY AROUSED. NO DISTRESS. ORIENTED TO PERSON AMD PLACE.
--- NOTE | 2021-07-23 21:00 | NUR ---
SKIN BREAKDOWN NOTED TO COCCYX. APPROXIMATELY 1CM ROUND. WOUND BED PINK.
[2021-07-23 23:11] VITALS: BP 140/62
[2021-07-23 23:31] VITALS: BP 117/59
[2021-07-24] VITALS (10 sets, daily range): BP systolic 135–158; BP diastolic 71–94
--- NOTE | 2021-07-24 00:10 | NUR ---
SATURATED ADULT DIAPER NOTED
--- NOTE | 2021-07-24 00:15 | NUR ---
COMPLETE BED BATH, LINEN AND GOWN CHANGE, PT PLACED IN INPT HOSPITAL BED.
--- NOTE | 2021-07-24 00:18 | NUR ---
SPOKE WITH PROVIDER, DARIEN, REGARDING LARGE DARK BROWN EMESIS AND DARK SMEARS OF STOOL. POSSIBLE GI BLEED. ZOFRAN GIVEN. NEW ORDER FOR STOOL FOR OCCULT BLOOD. NO NEW MEDICATION ORDERS.
--- NOTE | 2021-07-24 00:25 | NUR ---
SPOKE WITH TOOL DISTRIBUTOR, DIANE, ACTUAL STOOL SPECIMEN NEEDED FOR OCCULT BLOOD - NOT RECTAL SWAB.
--- NOTE | 2021-07-24 01:58 | NUR ---
PT WITH LARGE COFFEE GROUND EMESIS. LINEN AND GOWN CHANGED.
--- NOTE | 2021-07-24 03:59 | NUR ---
PT ASSISTED WITH REPOSITIONING Q2H.
[2021-07-24 06:22] LABS: HEMATOCRIT 32.4 % (37.0-47.0); HEMOGLOBIN 10.5 g/dl (12.0-16.0); MEAN CORPUSCULAR HGB 29.5 pG CALC (26.0-32.0); MEAN CORPUSCULAR HGB CONC 32.4 g/dL CAL (32.0-36.0); RED BLOOD COUNT 3.56 mill/uL (4.20-5.60); RED CELL DISTRI WIDTH 16.3 % (11.5-15.5)
[2021-07-24 06:40] LABS: CREATININE 1.3 mg/dL (0.5-1.0); MAGNESIUM 1.7 mg/dL (1.6-2.3); POTASSIUM 4.4 mmol/l (3.5-5.1)
--- NOTE | 2021-07-24 06:45 | NUR ---
ON-COMING NURSE NOT YET AVAILABLE FOR REPORT
--- NOTE | 2021-07-24 06:50 | NUR ---
SPOKE WITH DARIEN Segovia APRN. UPDATED ON PT STATUS - EMESIS X3 OVER NIGHT. NO URINE OUT PUT SINCE BLOOD TRANSFUSION COMPLEETED.
--- NOTE | 2021-07-24 07:13 | NUR ---
REPORT GIVEN TO SHYLA ONCOMING FLOOR NURSE. PT TO BE TRANSPORTED TO FLOOR. REPORT GIVEN TO ED RNRICK.
--- NOTE | 2021-07-24 09:05 | NUR ---
PATIENT TRANSPORTED TO FLOOR
--- NOTE | 2021-07-24 09:15 | NUR ---
86 YEAR OLD FEMALE IN TO ER OVERNIGHT FROM [facility]--ARRIVED TO FLOOR FROM FROM VIA STRETCHER ACCOMPANIED BY ER STAFF WITH DIAGNOSIS OF HYPOTENSION, DEHYDRATION, AND ANEMIA. PATIENT IS ALERT, VERBAL, YET VERY DIFFICULT TO UNDERSTAND--NEEDS TO BE ANTICIPATED AND MET BY STAFF NEEDED. NPO AT THIS TIME TO HAVE AN EGD DONE BY DR BOWMAN. PATIENT HAD ALSO BEEN HAVING SOME COFFEE GROUND EMESIS IN ER OVERNIGHT--NG TUBE PLACED IN RIGHT NARE BY ER STAFF--TO INTERMITTENT SUCTION PRODUCING A MODERATE AMOUNT OF COFFEE GROUND FLUID. NEGATIVE FOR COVID. PATIENT ABLE TO TELL WHEN SHE HAS TO VOID OR HAVE A BM--HOWEVER HAS URGE INCONTINENCE. CXR DONE UPON REACHING FLOOR TO VERIFY PLACEMENT--PENDING AT THIS TIME. ABDOMEN NOTED TO BE TENDER AROUND UMBILICAL AREA UPON PALPATION. TELEMETRY TO BE MONITORED ORDERED. MAX ASSIST WITH ALL ADLS AND TRANSFERS. NO APPARENT DISTRESS NOTED. NKDA. LAST BM YESTERDAY. DIET OF CARDIAC/LOW FAT/LOW CHOLESTEROL/2 GRAM NA TO BE STARTED AFTER PROCEDURE. SKIN ASSESSMENT COMPLETED--NOTED TO HAVE AN CIRCULAR OPEN AREA TO COCCYX. UNABLE TO ORIENT TO ROOM--WILL ANTICIPATE NEEDS--WILL CONT TO MONITOR FOR ANY FURTHER CHANGES.
--- NOTE | 2021-07-24 11:00 | NUR ---
PATIENT TRANSPORTED AT THIS TIME TO HAVE AN EGD DONE--CONDITION STABLE.
--- NOTE | 2021-07-24 14:30 | NUR ---
PATIENT RETUTRNED FROM EGD AT THIS TIME. CONDITON STABLE--VERY SLEEPY AND DROWSY--FLAT AFFECT. NEW NG TUBE PLACED WHILE IN PROCEDURE--SUCTIONED FOR 50ML OF THICK DARK BROWN LIQUID FROM GASTRIC CAVITY. NO ABNORMAL FINDS WITH EGD--PATIENT TO BE PREPPED FOR A COLONOSCOPY STARTING AT 1500 WITH BOWEL PREP PER NG TUBE. V/S/ B/P 148/88 P92 T 98.9 R 20--O2 SAT 96% ON O2 @ 2L/MIN BNC ONLY UNTIL EFFECTS OF ANESTHESIA WEAR OFF FOR COMFORT. WILL CONT TO MONITOR.
--- NOTE | 2021-07-24 16:30 | NUR ---
PATIENT CONTINUES TO BE VERY LETHARGIC--RESPONDS TO VERBAL STIMULI--OTHERWISE SLEEPS ON AND OFF--PATIENT BEGAN BOWEL PREP AT THIS TIME FOR COLONOSCOPY IN THE AM. TOLERATED WELL VIA NG TUBE THUS FAR. PATIENT RESTING SOUNDLY WITHOUT ANY APPARENT DISTRESS NOTED. REMAINS NPO ORDERED. TELEMETRY IN PLACE WITH SINUS TACH @ 102. V/S STABLE. NG TUBE PLACEMENT VERIFIED--POSITIVE PLACEMENT NOTED. INTERMITTENT SUCTION PLACED ON HOLD FOR ADMINISTRATION OF BOWEL PREP. WILL CONT TO MONITOR FOR ANY FURTHER CHANGES.
--- NOTE | 2021-07-24 17:25 | NUR ---
UPON ADMINISTERING BOWEL PREP FOR PROCEDURE IN THE AM--PATIENT BEGAN TO VOMIT--PLACED BACK TO INTERMITTENT SUCTION--AND HELD BOWEL PREP AT THIS TIME--COLBY AND PRISCILLA RICHARDSON BOTH MADE AWARE--COLBY STATES TO GIVE HER A BREAK AND KEEP TRYIN THROUGHOUT THE NIGHT--ALSO STATES THAT IF THE SCOPE CANT BE DONE IN THE AM THAT SHE NEEDS TO BE TRANSFERRED TO BE CHECKED OUT FURTHER--PRISCILLA DUFF MADE AWARE OF CONCERNS VOICED BY COLBY.
--- NOTE | 2021-07-24 19:51 | NUR ---
PATIENT AWAKE AND MOANING IN BED. RT NARE WITH NG TUBE WITH LOW INTERMITENT SUCTION IN PLACE. ZOFRAN 4 MG IV GIVEN FOR NAUSEA. PATIENT REQUESTED HEAD TO BE LOWERED. EDUCATED PATIENT THAT THE HEAD IS TO REMAIN AT LEAST 45 DEGREES WHILE NG IS IN PLACE. RESPIRATIONS SHALLOW. HR TACHY. FALL PRECAUTIONS MAINTAINED. BED IN LOW POSITION. CALL LIGHT WITHIN REACH.
[2021-07-24 21:03] LABS: HEMATOCRIT 29.9 % (37.0-47.0); HEMOGLOBIN 9.9 g/dl (12.0-16.0); IMMATURE GRANULOCYTES 0.8 % (0.0-5.0); MEAN CELL VOLUME 90.1 fL CALC (80.0-100.0); MEAN CORPUSCULAR HGB 29.8 pG CALC (26.0-32.0); MEAN CORPUSCULAR HGB CONC 33.1 g/dL CAL (32.0-36.0); NEUT# 20.99 thou/uL (2.00-7.15); RED BLOOD COUNT 3.32 mill/uL (4.20-5.60); RED CELL DISTRI WIDTH 17.3 % (11.5-15.5)
--- NOTE | 2021-07-24 21:07 | NUR ---
AT 2029 PATIENT ALREADY HAS 100 CC RED OUTPUT THRUGH NGT. CALLED DR. BOWMAN ABOUT PT CONDITION. DR SAID PATIENT NEEDS TO BE TRANSFERRED BUT THERE IS NO AVAILABILITY AT THIS TIME. CALL DR. BAUER AND LET HIM KNOW AND TO CALL BACK WITH INFORMATION. CALLED DR. BAUER. "STAT CBC, IF HEMOGLOBIN <6, TRANSFUSE 2 UNITS PRBS, START A PROTONIX GTT. CURRENTLY WAITING ON CBC RESULTS. LABS HAVE BEEN DRAWN. PATIENT AWAKE BUT GROGGY, NGT TO INTERMITENT SUCTION.
[2021-07-25] VITALS (12 sets, daily range): BP systolic 90–145; BP diastolic 54–86
--- NOTE | 2021-07-25 01:20 | NUR ---
RESTING IN BED. SEMI-FOWLERS POSITION. NGT TO INTERMITENT SUCTION. CURRENTLY RESTING WITH EYES CLOSED. RESPIRATIONS EVEN. BED IN LOW POSITION. CALL LIGHT WITHIN REACH.
--- NOTE | 2021-07-25 04:29 | NUR ---
PATIENT HAD BED BATH. TOLERATED OK. TELEMETRY IN PLACE NOW.
[2021-07-25 05:25] LABS: HEMATOCRIT 28.6 % (37.0-47.0); HEMOGLOBIN 9.2 g/dl (12.0-16.0); IMMATURE GRANULOCYTES 0.7 % (0.0-5.0); MEAN CELL VOLUME 92.6 fL CALC (80.0-100.0); MEAN CORPUSCULAR HGB 29.8 pG CALC (26.0-32.0); MEAN CORPUSCULAR HGB CONC 32.2 g/dL CAL (32.0-36.0); NEUT# 23.33 thou/uL (2.00-7.15); RED BLOOD COUNT 3.09 mill/uL (4.20-5.60); RED CELL DISTRI WIDTH 17.8 % (11.5-15.5)
[2021-07-25 05:41] LABS: CREATININE 1.4 mg/dL (0.5-1.0); MAGNESIUM 1.7 mg/dL (1.6-2.3); POTASSIUM 4.7 mmol/l (3.5-5.1)
--- NOTE | 2021-07-25 08:00 | NUR ---
PATIENT AROUSES TO SPEECH--YET STILL EXTREMELY LETHARGIC/DROWSY, VERBAL YET VERY DIFFICULT TO UNDERSTAND, NOT ABLE TO MAKE NEEDS KNOWN--NEEDS ANTICIPATED AND MET PER STAFF. NPO STATUS REMAINS IN PLACE--ALL MEDS GIVEN PER NG TUBE--FLSUHES WELL--PLACEMENT VERIFIED. PIV SITE PATENT TO LEFT AC--FLUSHES WELL--SITE UNREMARKABLE--NS INFUSING @ 100ML/HR WITHOUT DIFFICULTY. PROTONIX DRIP INFUSING WELL--TOLERATING WELL. NG TUBE TO INTERMITTENT SUCTION--300ML OF DARK BLACK FLUID OBTAINED PER SUCTION--APPEARS TO BE COFFEE GROUND IN APPEARANCE. INC OF BOWEL AND BLADDER WITH CARE PROVIDED PRN. MAX ASSIST WITH ALL ADLS. MEDICATED THIS AM FOR APPARENT DISCOMFORT--GRIMACING WITH MOVEMENT AND REPOSTIONING--PRN LORTAB GIVEN @ 0830 WITH POSITIVE EFFECT. [facility] TRANSFER IN THE WORKS PER CASE MANAGEMENT. TELEMETRY IN PLACE WITH SINUS TACH @ 104. WILL CONT TO MONITOR FOR ANY FURTHER CHANGES.
--- NOTE | 2021-07-25 12:00 | NUR ---
PATIENT RESTING SOUNDLY IN BED WITH EYES CLOSED AT THIS TIME--AROUSES SPORADICALLY TO VERBAL CUES WELL TOUCH--NEEDS CONTINUE TO BE ANTICIPATED BY STAFF. TOLERATING ALL MEDS WELL VIA NG TUBE--POSITIVE PLACEMENT VERIFIED. 02 @ 2L/MIN BNC FOR COMFORT--NO RESP DISTRESS NOTED. PROTONIX DRIP CONTINUES--INFUSING WELL. PIV SITE PATENT TO LEFT AC--FLUSHES WELL--SITE UNREMARKABLE--NS INFUSING @ 100ML/HR WITHOUT DIFFICULTY. MD IN TO SEE ON ROUNDS AT BEDSIDE--SEEMS TO THINK PATIENT HAS ISCHEMIC BOWEL AND GAVE ORDERS TO OBTAIN A CT OF THE ABDOMEN--AWAITING CONTRAST TO ARRIVE FROM PHARMACY. LS CONTINUE TO BE DIMNISHED THROIGHOUT--NG TUBE TO INT SUCTION--450ML OF DARK BROWN FLUID OBTAINED. TRANSFER TO [facility] STILL IN THE WORKS PER CASE MANAGEMENT AT THIS TIME--WILL CONT TO MONITOR.
--- NOTE | 2021-07-25 14:00 | NUR ---
ALL THREE DOSES OF CONTRAST COMPLETED FOR CT OF THE ABDOMEN TO BE DONE--PATIEN TAKEN DOWN TO CT FOR SCAN AT THIS TIME.
--- NOTE | 2021-07-25 14:15 | NUR ---
RECEIVED CALL FROM DR BOWMAN WHO STATED THAT PATIENT WOULD BE GOING TO SURGERY THAT SHE HAD A VERY LARGE BOWEL OBSTRUCTION--ORDERS TRANSCRIBED AND PROCESSED FOR 2000ML NS BOLUS--AND PATIENT TO RECEIVE 1 UNIT OF PACKED RED BLOOD CELLS IN PREP FOR SURGERY. BOLUS STARTED AND BLOOD TRASNFUSION PROCESS BEGAN PER RN AT THIS TIME.
--- NOTE | 2021-07-25 14:45 | NUR ---
FAMILY IN TO VISIT AT BEDSIDE APPROVED BY MD IN PREPARATION FOR SURGERY.
--- NOTE | 2021-07-25 15:30 | NUR ---
PATIENT LEFT IN ROUTE TO THE OR AT THIS TIME--V/S STABLE--DELICATE CONDITION.
--- NOTE | 2021-07-25 18:10 | NUR ---
RECEIVED PATIENT FROM OR POST EXPLORATORY LAP. PATIENT ARRIVED INTUBATED WITH BP 122/65 RESPIRATIONS OF 12 AND 100% SAO2. BEDSIDE REPORT RECIEVED AND RT AT BEDSIDE TO SWITCH PATIENT OVER TO VENTILATOR. PATIENT BREATH SOUNDS BILATERALLY WITH EVEN CHEST RISE. PUPILS 4MM AND REACTIVE.
--- NOTE | 2021-07-25 18:40 | NUR ---
1831 DIPRIVAN HUNG 5MCG/KG/MIN AND RESTRAINTS TO BILATERAL WRISTS PER ORDER 1838 1ST UNIT FFP STARTED. 1840 PORTABLE XRAY COMPLETED FOR CENTRAL LINE PLACEMENT IN OR. NO BLEEDING NOTED TO CENTRAL LINE SITE. WOUNDVAC IN PLACE AND RUNNING. FAMILY At BEDSIDE
--- NOTE | 2021-07-25 18:45 | NUR ---
ASSUMED CARE OF PT FROM MARIPOSA BARBER. PT INTUBATED AND SEDATED, BAG 1 OR 2 FFP INSUSING, WOUND VAC IN PLACE FUNCTIONING, MATEUSZ DRAIN TO LQ DRAINING BRIGHT RED BLOOD, MARCIAL INTACT, ACTIVE BOWEL SOUNDS, PRESSURE DRESSING TO RIJ INTACT. VSS, ST IN 130S NOTED.
--- NOTE | 2021-07-25 18:55 | NUR ---
REPORT TO SNEHA MONGE
[2021-07-25 21:05] LABS: URINE BILIRUBIN - DIPSTICK NEGATIVE (NEGATIVE); URINE BLOOD DIPSTICK LARGE (NEGATIVE); URINE COLOR YELLOW; URINE GLUCOSE - DIPSTICK NEGATIVE (NEGATIVE); URINE KETONE NEGATIVE (NEGATIVE); URINE LEUK ESTERASE NEGATIVE (NEGATIVE); URINE NITRITE - DIPSTICK NEGATIVE (Negative); URINE PH 5.5 (4.5-8.0); URINE PROTEIN - DIPSTICK TRACE mg/dL (NEG-TRACE); URINE UROBILINOGEN - DIPSTICK 0.2 E.U./dL (0.2)
[2021-07-25 21:06] LABS: URINE BACTERIA MANY hpf; URINE RBC 50-100 RBC/hpf (0-5); URINE SQUAMOUS EPITHELIAL CELL FEW EPI/hpf (0-FEW)
[2021-07-26] VITALS (27 sets, daily range): BP systolic 65–128; BP diastolic 44–98
[2021-07-26 03:38] LABS: HEMATOCRIT 23.7 % (37.0-47.0); HEMOGLOBIN 7.5 g/dl (12.0-16.0); IMMATURE GRANULOCYTES 0.6 % (0.0-5.0); MEAN CELL VOLUME 93.7 fL CALC (80.0-100.0); MEAN CORPUSCULAR HGB 29.6 pG CALC (26.0-32.0); MEAN CORPUSCULAR HGB CONC 31.6 g/dL CAL (32.0-36.0); RED BLOOD COUNT 2.53 mill/uL (4.20-5.60); RED CELL DISTRI WIDTH 17.7 % (11.5-15.5)
[2021-07-26 03:50] LABS: PLATELET COUNT 34 thou/uL (130-400)
[2021-07-26 03:51] LABS: MANUAL DIFFERENTIAL YES
[2021-07-26 04:00] LABS: CREATININE 1.3 mg/dL (0.5-1.0)
[2021-07-26 04:17] LABS: BAND 0 % (0-8)
--- NOTE | 2021-07-26 07:57 | NUR ---
PT TRANSPORTED ON LTV TRANSPORT VENT. PT TOLERATED TRANSPORT WELL. RT TIME 20 MINUTES.
--- NOTE | 2021-07-26 08:30 | NUR ---
PT ARRIVES TO ICU 1 WITH ER NURSE RICK AND RT CARMEN TRANSPORTING. PT IS SEEN VENTED, SEDATED, DIPRIVAN AT 50. HOOPER IN PLACE. WOUND VAC IN PLACE TO LOWER ABDOMEN. LEFT SIDED MATEUSZ NOTED. PT WITH TLC TO RIGHT SUBCLAVIAN. PT IS UNRESPONSIVE PER DIPRIVAN. NG NOTED, NOW TO LIS. SCDs IN PLACE. PT WITH LOW BLOOD PRESSURE, TO MONITOR.
--- NOTE | 2021-07-26 11:47 | NUR ---
PT SEEN BY DR BAUER THIS MORNING. LOW BLOOD PRESSURE TREATED WITH 500 ML BOLUSES OF NS X 2. PT REMAINS WITH MAP OF 60. PLATELETS INFUSED WELL FIRST UNIT PRBCs, SECOND UNIT INFUSING NOW. PT REMAINS SEDATED, DIPRIVAN DOWN TO 35 MKM WITH ADEQUATE RESULTS. HR REMAINS 120s. NO EVIDENCE OF PAIN.
--- NOTE | 2021-07-26 12:10 | NUR ---
Dr Smith present at bedside to assess pt and discuss plan of care; order received to have 2 units platelets readily available for tomorrow; pt to go back to surgery tomorrow afternoon; ring removed from right index finger and placed in specimen cup at bedside
--- NOTE | 2021-07-26 14:24 | NUR ---
PT'S BLOOD PRESSURE REMAINS IN THE 80s SYSTOLIC. DR BAUER AWARE, KEEP MAP GREATER THAN 55. PT CONTINUES AT REST IN THE BED, NO EVIDENCE OF DISTRESS.
--- NOTE | 2021-07-26 14:41 | NUR ---
LAB CONTACTED, WILL HAVE 2 OF THE 10 PACK OF PLATELETS READY TOMORROW PER DR BOWMAN ORDER.
--- NOTE | 2021-07-26 15:59 | NUR ---
PT REMAINS WITH LOW BLOOD PRESSURE, ALTHOUGH MAP REMAINS ABOVE 55. MATEUSZ EMPTIED OF 120 ML BLOODY LIQUID. PT CONTINUES ON DIPRIVAN WITH MINIMAL RESPONSE.
--- NOTE | 2021-07-26 19:30 | NUR ---
vent cont assisted by pt. panel monitor shows sinus tach pvcs hr 118. og cont to lcs draining sm amt black. donald intact to abd incision. wound vac conts. maribel in place draining bright red blood-emptied. mckay cath in place draining scant amt dk yellow urine-emptied. incont mod amt black tarry liq stool-cleansed. bilat wrist restraints & scds cont. turned & repositioned. requires total care for all needs. bp 75/60. bolus began.
--- NOTE | 2021-07-26 20:30 | NUR ---
bp 67/45. bolus began.
--- NOTE | 2021-07-26 21:25 | NUR ---
dr barrios called. update given. orders rec'd.
--- NOTE | 2021-07-26 21:30 | NUR ---
dr monzon called this race and sports book writer. update given.
[2021-07-26 21:45] LABS: HEMATOCRIT 32.4 % (37.0-47.0); HEMOGLOBIN 10.3 g/dl (12.0-16.0)
--- NOTE | 2021-07-26 22:00 | NUR ---
incont mod amt black tarry foul smelling stool-cleansed.
[2021-07-27] VITALS (50 sets, daily range): BP systolic 54–125; BP diastolic 35–67
--- NOTE | 2021-07-27 00:01 | NUR ---
vent cont assisted by pt. classroom monitor shows sinus tach hr 114.
--- NOTE | 2021-07-27 02:00 | NUR ---
vent cont assisted by ptNeftali nguyen remains scant.
--- NOTE | 2021-07-27 03:30 | NUR ---
blood drawn & sent to lab.
--- NOTE | 2021-07-27 05:00 | NUR ---
xray here. pcxr obtained.
[2021-07-27 05:08] LABS: HEMATOCRIT 32.8 % (37.0-47.0); HEMOGLOBIN 10.4 g/dl (12.0-16.0); IMMATURE GRANULOCYTES 0.5 % (0.0-5.0); MEAN CELL VOLUME 92.9 fL CALC (80.0-100.0); MEAN CORPUSCULAR HGB 29.5 pG CALC (26.0-32.0); MEAN CORPUSCULAR HGB CONC 31.7 g/dL CAL (32.0-36.0); RED BLOOD COUNT 3.53 mill/uL (4.20-5.60); RED CELL DISTRI WIDTH 18.4 % (11.5-15.5)
[2021-07-27 05:32] LABS: CREATININE 1.6 mg/dL (0.5-1.0); POTASSIUM 3.7 mmol/l (3.5-5.1)
[2021-07-27 05:49] LABS: MANUAL DIFFERENTIAL YES; PLATELET COUNT 39 thou/uL (130-400)
[2021-07-27 05:51] LABS: BAND 1 % (0-8)
--- NOTE | 2021-07-27 06:00 | NUR ---
bp 73/46. bolus began. incont mod amt black tarry liquid fowl smelling stool-cleansed.
--- NOTE | 2021-07-27 06:45 | NUR ---
REPORT RECEIVED FROM NIGHT NURSE. CARE ASSUMED.
--- NOTE | 2021-07-27 07:00 | NUR ---
PATIENT RESTING IN BED INTUBATED AND SEDATED AT THIS TIME. SHIFT ASSESSMENT COMPLETED AT THIS TIME. IV PATENT X2. IV TITRATION PER INTERVENTIONS. WILL CONTINUE TO MONITOR CLOSELY.
--- NOTE | 2021-07-27 08:00 | NUR ---
DR BOWMAN AT BEDSIDE AT THIS TIME. PLAN OF CARE DISCUSSED. NEW ORDERS RECEIVED.
--- NOTE | 2021-07-27 08:55 | NUR ---
DR CASTRO AT BEDSIDE AT THIS TIME. PLAN OF CARE DISCUSSED. NEW ORDERS RECEIVED.
--- NOTE | 2021-07-27 10:10 | NUR ---
1ST UNIT OF PLATELETS ADMINISTERED BY WRITTER WITH VERIFICATION BY MARIPOSA RANDLE.
--- NOTE | 2021-07-27 10:17 | NUR ---
CALLED [facility] WOUND VAC AT SPOKE TO PINEDA AND GAVE WOUND VAC SERIAL NUMBER [id number] AND WAS GIVEN CONFIRMATION NUMBER [id number].
--- NOTE | 2021-07-27 10:30 | NUR ---
HEART RATE 60S. BP 50/PALP WITH DOPPLER. DR CASTRO CALLER TO BEDSIDE. 500CC BOLUS GIVEN. LEVOPHED GTT ORDERED AND STARTED. BICARB GTT STARTED PER MD ORDERS.PROPOFOL DC'D. DR BOWMAN NOTIFIED OF CHANGE IN STATUS. DR CASTRO PHONED DAUGHTER TO NOTIFY OF DECLINE IN STATUS. DAUGHTER AND DR CASTRO MADE PATIENT A DNR AT THIS TIME. ORDER PLACED IN CHART.
--- NOTE | 2021-07-27 10:40 | NUR ---
DAUGHTER MIGUEL LESLIE CALLED AND UPDATED ON PATIENT CONDITION. PHONE CALLED TRANSFERED TO DR. CASTRO.
--- NOTE | 2021-07-27 10:45 | NUR ---
Dr. Loyola at bedside. Dr. Smith provided update of vitals.
--- NOTE | 2021-07-27 11:45 | NUR ---
1ST UNIT OF PLATELETS COMPLETED AT THIS TIME.
--- NOTE | 2021-07-27 12:40 | NUR ---
2ND UNIT OF PLATLETS ADMINISTERED AT THIS TIME BY DARA AND MARIPOSA MARCELO. DAUGHTER AT BEDSIDE.
--- NOTE | 2021-07-27 13:17 | NUR ---
2ND UNIT OF PLATELETS COMPLETED AT THIS TIME,PT TOLERATED WELL.
--- NOTE | 2021-07-27 13:22 | NUR ---
AT BEDSIDE DISCUSSING POC WITH DAUGHTER.
--- NOTE | 2021-07-27 14:31 | NUR ---
MANUAL BP OBTAINED 58/35
--- NOTE | 2021-07-27 15:04 | NUR ---
DR CASTRO AT BEDSIDE AT THIS TIME TO TALK WITH DAUGHTER.
--- NOTE | 2021-07-27 15:40 | NUR ---
dr banerjee at bedside at this time to speak with daughter. daughter wishes to make patient comfort measues only at this time. repsiratory therapy notified for terminal extubation.
--- NOTE | 2021-07-27 15:44 | NUR ---
CALLED [facility] TO [facility] DELIVERY. LACIE FROM [facility] STATED SHE DOESNT SEE HER NAME IN THE SYSTEM ANYWHERE.
--- NOTE | 2021-07-27 15:58 | NUR ---
PATIENT TERMINALLY EXTUBATED AT THIS PER FAMILY REQUEST.
--- NOTE | 2021-07-27 16:03 | NUR ---
PT TERMINALLY EXTUBATED AT 1558 PER PHYSICIAN ORDER AND FAMILY REQUEST.
--- NOTE | 2021-07-27 16:07 | NUR ---
PT MEDICATED WITH PRN DILAUDID 1MG SLOW IVP TO ASSIST IN COMFORT MEASURES R/T EXTUBATION PER FAMILY REQUEST.RT AND FAMILT AT BEDSIDE.
--- NOTE | 2021-07-27 16:15 | NUR ---
time of called at this time family at bedside. verified by two nurses. navjot lerma rn and renee pablo rn.
--- NOTE | 2021-07-27 16:30 | NUR ---
[facility] phoned at this time.
--- NOTE | 2021-07-27 18:10 | NUR ---
PHONED [facility]. ALL INFO GIVEN
--- NOTE | 2021-07-27 18:50 | NUR ---
CALLED [facility] WOUND VAC IN ON PT TO BE DISCHARGED OFF. SPOKE TO KAYY WAS GIVEN CONFIRMATION NUMBER [phone].
--- NOTE | 2021-07-27 19:34 | NUR ---
césar has departed, picked up by services- [facility].
== END 2021-07-27 19:34 | disposition expired | DRG 336 ==
LOC: ED 16:16 → ED-I 18:44 → ED 18:58 → MS2 18:59 → ED-I 18:59 → MS2 07-24 05:33 → ED-I 07-25 17:59 → ICU 07-25 21:43
PROVIDERS: Internal Medicine; Nurse Practitioner; Surgery; ADMIT Internal Medicine; ATTEND Internal Medicine
PROC: 30233N1 Transfusion of Nonautologous Red Blood Cells into Peripheral Vein, Percutaneous Approach (ICD-10-PCS; principal; 2021-07-23)
PROC: 30233N1 Transfusion of Nonautologous Red Blood Cells into Peripheral Vein, Percutaneous Approach (ICD-10-PCS; 2021-07-24)
PROC: 0DJ08ZZ Inspection of Upper Intestinal Tract, Via Natural or Artificial Opening Endoscopic (ICD-10-PCS; 2021-07-24)
PROC: 0DN80ZZ Release Small Intestine, Open Approach (ICD-10-PCS; 2021-07-25)
PROC: 0WPF0JZ Removal of Synthetic Substitute from Abdominal Wall, Open Approach (ICD-10-PCS; 2021-07-25)
PROC: 05H533Z Insertion of Infusion Device into Right Subclavian Vein, Percutaneous Approach (ICD-10-PCS; 2021-07-25)
PROC: 30233K1 Transfusion of Nonautologous Frozen Plasma into Peripheral Vein, Percutaneous Approach (ICD-10-PCS; 2021-07-25)
PROC: 30233K1 Transfusion of Nonautologous Frozen Plasma into Peripheral Vein, Percutaneous Approach (ICD-10-PCS; 2021-07-25)
PROC: 30233N1 Transfusion of Nonautologous Red Blood Cells into Peripheral Vein, Percutaneous Approach (ICD-10-PCS; 2021-07-25)
PROC: 30233N1 Transfusion of Nonautologous Red Blood Cells into Peripheral Vein, Percutaneous Approach (ICD-10-PCS; 2021-07-25)
PROC: 30233R1 Transfusion of Nonautologous Platelets into Peripheral Vein, Percutaneous Approach (ICD-10-PCS; 2021-07-25)
PROC: 30233R1 Transfusion of Nonautologous Platelets into Peripheral Vein, Percutaneous Approach (ICD-10-PCS; 2021-07-25)
PROC: 30233R1 Transfusion of Nonautologous Platelets into Peripheral Vein, Percutaneous Approach (ICD-10-PCS; 2021-07-26)
PROC: 30233N1 Transfusion of Nonautologous Red Blood Cells into Peripheral Vein, Percutaneous Approach (ICD-10-PCS; 2021-07-26)
PROC: 30233N1 Transfusion of Nonautologous Red Blood Cells into Peripheral Vein, Percutaneous Approach (ICD-10-PCS; 2021-07-26)
PROC: 30233R1 Transfusion of Nonautologous Platelets into Peripheral Vein, Percutaneous Approach (ICD-10-PCS; 2021-07-27)
PROC: 30233R1 Transfusion of Nonautologous Platelets into Peripheral Vein, Percutaneous Approach (ICD-10-PCS; 2021-07-27)
DX: K56.52 Intestinal adhesions [bands] with complete obstruction (principal); N17.9 Acute kidney failure, unspecified; K55.8 Other vascular disorders of intestine; E86.0 Dehydration; R57.1 Hypovolemic shock; K43.2 Incisional hernia without obstruction or gangrene; D46.9 Myelodysplastic syndrome, unspecified; I12.9 Hypertensive chronic kidney disease with stage 1 through stage 4 chronic kidney disease, or unspecified chronic kidney disease; N18.2 Chronic kidney disease, stage 2 (mild); I95.9 Hypotension, unspecified; K29.70 Gastritis, unspecified, without bleeding; K29.80 Duodenitis without bleeding; E78.5 Hyperlipidemia, unspecified; I25.10 Atherosclerotic heart disease of native coronary artery without angina pectoris; E03.9 Hypothyroidism, unspecified; H40.9 Unspecified glaucoma; Z66 Do not resuscitate; Z51.5 Encounter for palliative care; Z87.891 Personal history of nicotine dependence; Z20.822 Contact with and (suspected) exposure to COVID-19
CPT/HCPCS: P9016; P9034; P9037; S0164